=== PATIENT | female | born 1935 | race Caucasian/White ===

== ENCOUNTER → 2019-04-27 07:49 | Outpatient (BNVA) | payer OTHER, SELFPAY | PROVIDERS: PCP Nurse Practitioner Family; Visit Provider Nurse Practitioner Family | DX: Z00.00 Encounter for general adult medical examination without abnormal findings (principal); D64.9 Anemia, unspecified; E78.2 Mixed hyperlipidemia; M81.0 Age-related osteoporosis without current pathological fracture | CPT/HCPCS: 80053; 80061; 85025 ==

== ENCOUNTER → 2019-12-24 08:53 | Outpatient (BNVA) | payer MEDICARE, SELFPAY | PROVIDERS: PCP Nurse Practitioner Family; Visit Provider Nurse Practitioner Family | DX: E11.9 Type 2 diabetes mellitus without complications (principal); E78.2 Mixed hyperlipidemia | CPT/HCPCS: 80053; 80061; 83036; 85025 ==

== ENCOUNTER → 2020-06-24 08:14 | Outpatient (BNVA) | payer MEDICARE, SELFPAY | PROVIDERS: PCP Nurse Practitioner Family; Visit Provider Family Medicine | DX: E78.2 Mixed hyperlipidemia (principal); Z00.00 Encounter for general adult medical examination without abnormal findings | CPT/HCPCS: 80053; 80061; 84443; 85025 ==

== ENCOUNTER → 2021-06-02 08:24 | Outpatient (BNVA) | payer MEDICARE, SELFPAY | PROVIDERS: PCP Nurse Practitioner Family; Visit Provider Family Medicine | DX: E78.2 Mixed hyperlipidemia (principal); K21.9 Gastro-esophageal reflux disease without esophagitis; E78.5 Hyperlipidemia, unspecified | CPT/HCPCS: 80053; 80061; 84443; 85025 ==

== ENCOUNTER 2021-08-15 09:38 | Outpatient (CLI) | payer MEDICARE, SELFPAY ==
--- NOTE | 2021-08-15 09:43 | MM_ITS ---
WS: [id number] Bilateral screening 3D tomosynthesis digital mammogram, 08/15/2021 Clinical Data: SCREENING Comparison: 05/06/2014, 07/04/2009, 08/26/2026, 02/25/2006, 02/15/2006. Findings: The breast parenchymal pattern shows hyperglandular tissue No spiculated masses or clustered calcific ations are seen. There are no secondary signs of carcinoma. There are calcifications in the george of small vessels. There are small lymph nodes in both axilla. Impression: 1. Negative bilateral mammogram unchanged. 2. Recommend annual screening mammograms. MM/[place] [address] BIRADS: 1-Negative FOLLOW UP: 1 Year Follow-up The CAD weight yardage checker was used.
== END 2021-08-15 09:39 | disposition home or self-care (01) ==
PROVIDERS: PCP Family Medicine; Visit Provider Family Medicine
DX: Z12.39 Encounter for other screening for malignant neoplasm of breast (principal)
CPT/HCPCS: 77063; 77067

== ENCOUNTER → 2021-08-29 11:41 | Outpatient (BNVA) | payer MEDICARE, SELFPAY | PROVIDERS: PCP Family Medicine; Visit Provider Nurse Practitioner Family | DX: R19.7 Diarrhea, unspecified (principal); R50.9 Fever, unspecified; R19.5 Other fecal abnormalities; R63.4 Abnormal weight loss; R10.9 Unspecified abdominal pain; R63.0 Anorexia | CPT/HCPCS: 80053; 87493; 87506 ==

== ENCOUNTER 2022-06-18 13:19 | Outpatient (CLI) | payer MEDICARE, SELFPAY ==
--- NOTE | 2022-06-18 13:30 | XR_ITS ---
WS: [id number] DEXA (DUAL ENERGY X-RAY ABSORPTIOMETRY) Bone mineral density was performed using a Dexrex Gear machine. 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 COMPARISON: None available. Lumbar spine BMD (L1-L4): 1.570 g/cm2 T score: 3.2 Z score: 4.9 Total hip BMD: Left: 1.088 g/cm2. T score: 0.6 Z score: 2.8 Right: 1.099 g/cm2. T score: 0.7 Z score: 2.9 10 year probability of a major osteoporotic fracture is 14.2%. XR/XR DEXA axial skeleton* 48400 IMPRESSION: NORMAL BONE MINERAL DENSITY based upon the WHO classification for females.
== END 2022-06-18 13:20 | disposition home or self-care (01) ==
LOC: RAD 13:21
PROVIDERS: PCP Family Medicine; Visit Provider Family Medicine
DX: Z00.00 Encounter for general adult medical examination without abnormal findings (principal); M81.0 Age-related osteoporosis without current pathological fracture; E78.2 Mixed hyperlipidemia
CPT/HCPCS: 77080; 80053; 80061; 82306; 84443; 85025

== ENCOUNTER → 2022-06-27 10:29 | Outpatient (BNVA) | payer MEDICARE, SELFPAY | PROVIDERS: PCP Family Medicine; Visit Provider Family Medicine | DX: E78.5 Hyperlipidemia, unspecified (principal); R73.9 Hyperglycemia, unspecified | CPT/HCPCS: 83036; 84439; 84443; 84481 ==

== ENCOUNTER → 2022-09-24 11:10 | Outpatient (BNVA) | payer MEDICARE, SELFPAY | PROVIDERS: PCP Family Medicine; Visit Provider Internal Medicine Cardiovascular Disease | DX: R01.1 Cardiac murmur, unspecified (principal); I35.1 Nonrheumatic aortic (valve) insufficiency; E78.5 Hyperlipidemia, unspecified; K21.9 Gastro-esophageal reflux disease without esophagitis; N18.30 Chronic kidney disease, stage 3 unspecified | CPT/HCPCS: 93005; 99203 ==

== ENCOUNTER → 2022-09-24 11:11 | Outpatient (BNVA) | payer MEDICARE, SELFPAY | PROVIDERS: PCP Family Medicine; Visit Provider Internal Medicine Cardiovascular Disease | DX: R01.1 Cardiac murmur, unspecified (principal); K21.9 Gastro-esophageal reflux disease without esophagitis; E78.5 Hyperlipidemia, unspecified; N18.30 Chronic kidney disease, stage 3 unspecified; R94.31 Abnormal electrocardiogram [ECG] [EKG] | CPT/HCPCS: 93005; 99204 ==

== ENCOUNTER 2022-10-09 07:36 | Outpatient (CLI) | payer MEDICARE, SELFPAY ==
--- NOTE | 2022-10-09 08:00 | USCV_ITS ---
Keerthi Wiseman Age: 87 Gender: F : 1935 Exam Date: 10/09/2022 07:55 Ordering Phys: Glory Rendon MD ([email or web address]) Technologist: Juan Vidal Exam Location: [facility] [place] Indication: Shortness of breath BP: 200 / 100 HR: 65 Rhythm: Sinus Technical Quality: Adequate MEASUREMENTS (Male / Female) Normal Values 2D ECHO LVOT Diameter 2.0 cm LV Ejection Fraction MOD 2C 72.2 % LV Ejection Fraction 2C AL 72.5 % LA Diameter 3.4 cm LA Width 3.4 cm LA Height 4.7 cm RA Width 3.0 cm RA Height 4.3 cm Aorta at Sinotubular Diameter 2.3 cm IVC Diameter 1.6 cm M-MODE Aortic Annulus Diameter 1.9 cm LA Ao Ratio MM 1.8 MV E Point Septal Separation 0.2 cm DOPPLER AV Peak Velocity 335.3 cm/s LVOT Peak Velocity 96.0 cm/s AV Area Cont Eq vti 0.9 cm squared AV Area Cont Eq pk 0.9 cm squared MV Peak Velocity 141.0 cm/s MV Area PHT 3.2 cm squared Mitral E to A Ratio 0.7 MV E' Velocity 48.0 cm/s Mitral E to MV E' Ratio 13.3 Mitral E to LV E' Lateral Ratio 13.3 Mitral E to LV E' Septal Ratio 13.5 TR Peak Velocity 290.6 cm/s TR Peak Gradient 33.8 mmHg TR Mean Velocity 228.2 cm/s TR Mean Gradient 22.5 mmHg TR Velocity Time Integral 85.7 cm Right Atrial Pressure 3.0 mmHg Pulmonary Artery Systolic Pressu 36.8 mmHg PV Peak Velocity 83.3 cm/s RV Acceleration Time 0.1 s RV Ejection Time 0.3 s RV AcT/ET 0.2 FINDINGS Left Ventricle Normal left ventricular size, systolic function and severely increased wall thickness, with no regional wall motion abnormalities. Left ventricular ejection fraction is estimated at 65 %. Grade I diastolic dysfunction (abnormal relaxation filling pattern), normal to mildly elevated filling pressures. Right Ventricle Normal right ventricular size and systolic function. Right ventricular systolic pressure 22 mmHg. Right Atrium Normal right atrial size. Left Atrium Mildly increased left atrial size. Mitral Valve Moderate mitral annular calcification. No mitral valve stenosis. Mild mitral valve regurgitation. Aortic Valve Markedly thickened and calcified trileaflet aortic valve. Severe aortic valve stenosis, peak velocity 3.2 m/s, peak gradient 40 mmHg, mean gradient 21 mmHg, AKIL 0.9 cm squared. No aortic valve regurgitation. Tricuspid Valve Structurally normal tricuspid valve. No tricuspid valve stenosis. Pulmonic Valve Pulmonic valve not well visualized. No pulmonary valve stenosis. Mild pulmonary valve regurgitation. Pericardium No pericardial effusion. Aorta Normal size aortic root and proximal ascending aorta. IVC Normal IVC dimension with >50% respiratory change of the inferior vena cava. CONCLUSIONS 1. Normal left ventricular size, systolic function and severely increased wall thickness, with no regional wall motion abnormalities. Left ventricular ejection fraction is estimated at 65 %. Grade I diastolic dysfunction (abnormal relaxation filling pattern), normal to mildly elevated filling pressures. 2. Normal right ventricular size and systolic function. 3. Severe aortic valve stenosis, peak velocity 3.2 m/s, peak gradient 40 mmHg, mean gradient 21 mmHg, AKIL 0.9 cm squared. 4. No prior similar studies to compare. Glory Rendon MD (Electronically Signed) Final Date: 15 October 2022 16:56 S
== END 2022-10-09 07:37 | disposition home or self-care (01) ==
PROVIDERS: PCP Family Medicine; Visit Provider Internal Medicine Cardiovascular Disease
DX: I35.2 Nonrheumatic aortic (valve) stenosis with insufficiency (principal); R06.02 Shortness of breath
CPT/HCPCS: 93306; 99204

== ENCOUNTER → 2022-10-22 09:50 | Outpatient (BNVA) | payer MEDICARE, SELFPAY | PROVIDERS: PCP Family Medicine; Visit Provider Family Medicine | DX: E78.5 Hyperlipidemia, unspecified (principal); N18.30 Chronic kidney disease, stage 3 unspecified | CPT/HCPCS: 80053; 80061; 84443; 85025 ==

== ENCOUNTER 2022-12-21 06:00 | Outpatient (RCR) | payer MEDICARE, SELFPAY | END 2023-01-19 23:59 | disposition home or self-care (01) | LOC: TPT 06:00 | PROVIDERS: Visit Provider Family Medicine | DX: M25.512 Pain in left shoulder (principal) | CPT/HCPCS: 97110; 97162 ==

== ENCOUNTER 2023-01-20 06:00 | Outpatient (RCR) | payer MEDICARE, SELFPAY | END 2023-02-13 23:59 | disposition home or self-care (01) | LOC: TPT 06:00 | PROVIDERS: Visit Provider Family Medicine | DX: M25.511 Pain in right shoulder (principal) | CPT/HCPCS: 97110 ==

== ENCOUNTER → 2023-03-25 10:36 | Outpatient (BNVA) | payer MEDICARE, SELFPAY | PROVIDERS: Visit Provider Internal Medicine Cardiovascular Disease | DX: I35.0 Nonrheumatic aortic (valve) stenosis (principal); R01.1 Cardiac murmur, unspecified | CPT/HCPCS: 99214 ==

== ENCOUNTER 2023-04-08 08:12 | Outpatient (CLI) | payer MEDICARE, SELFPAY ==
--- NOTE | 2023-04-08 08:45 | USCV_ITS ---
Ivone Keerthi Age: 87 Gender: F : 1935 Exam Date: 04/08/2023 08:58 Ordering Phys: Glory Rendon MD ([email or web address]) Technologist: Jodi Galeana [place] [facility] [place]: aortic stenosis, cardiac murmur BP: 128 / 88 HR: 51 Rhythm: Sinus Technical Quality: Good MEASUREMENTS (Male / Female) Normal Values 2D ECHO LV Diastolic Diameter PLAX 3.9 cm 4.2 - 5.9 / 3.9 - 5.3 cm LV Systolic Diameter PLAX 2.0 cm IVS Diastolic Thickness 1.2 cm 0.6 - 1.0 / 0.6 - 0.9 cm IVS Systolic Thickness 1.4 cm LVPW Diastolic Thickness 1.1 cm 0.6 - 1.0 / 0.6 - 0.9 cm LVPW Systolic Thickness 1.7 cm LVOT Diameter 2.0 cm LV Ejection Fraction 2D Teich 80.1 % LV Ejection Fraction MOD 2C 55.7 % LV Ejection Fraction 2C AL 56.5 % LA Diameter 2.9 cm LA Width 3.5 cm LA Height 4.0 cm RA Width 2.6 cm RA Height 4.5 cm Aorta at Sinotubular Diameter 3.0 cm IVC Diameter 0.9 cm M-MODE Aortic Annulus Diameter 2.9 cm LA Ao Ratio MM 0.9 MV E Point Septal Separation 0.3 cm DOPPLER AV Peak Velocity 312.4 cm/s LVOT Peak Velocity 92.0 cm/s AV Area Cont Eq vti 0.9 cm squared AV Area Cont Eq pk 1.0 cm squared MV Peak Velocity 130.0 cm/s MV Area PHT 3.9 cm squared Mitral E to A Ratio 0.8 MV E' Velocity 58.5 cm/s Mitral E to MV E' Ratio 17.1 Mitral E to LV E' Lateral Ratio 17.7 Mitral E to LV E' Septal Ratio 16.9 TR Peak Velocity 180.0 cm/s TR Peak Gradient 13.0 mmHg Right Atrial Pressure 5.0 mmHg Pulmonary Artery Systolic Pressu 18.0 mmHg RV Acceleration Time 0.2 s RV Ejection Time 0.4 s RV AcT/ET 0.5 FINDINGS Left Ventricle Left ventricle is normal in size. LV systolic function is normal with EF of 60 to 65%. No regional wall motion abnormalities are seen. Left ventricular hypertrophy seen. Grade 1 diastolic dysfunction. Right Ventricle Normal in size and function. Right Atrium Normal in size Left Atrium Mildly dilated left atrium. Mitral Valve Mitral valve is thickened. Mild mitral regurgitation. Aortic Valve Aortic valve is thickened and calcified. Severe aortic stenosis with aortic valve area of 0.8 cm squared and mean gradient of 29 mmHg. Tricuspid Valve Trace tricuspid regurgitation. Pulmonic artery systolic pressure is normal. Pulmonic Valve Not well visualized Pericardium Normal Aorta Normal in size. IVC Appears to be normal. CONCLUSIONS LV systolic function is normal with EF of 60 to 65%. Grade 1 diastolic dysfunction. Mildly dilated left atrium Mild mitral regurgitation Aortic valve is thickened and calcified. Severe aortic stenosis with aortic valve area of 0.8 cm squared and mean gradient of 29 mmHg. Trace tricuspid regurgitation Compared to prior echocardiogram from 09/2022, aortic stenosis has progressed and is severe now. Ezra Francis MD (Electronically Signed) Final Date: 12 April 2023 13:41 S
== END 2023-04-08 08:13 | disposition home or self-care (01) ==
LOC: RAD 08:13
PROVIDERS: PCP Family Medicine; Visit Provider Internal Medicine Cardiovascular Disease
DX: R01.1 Cardiac murmur, unspecified (principal); I08.3 Combined rheumatic disorders of mitral, aortic and tricuspid valves
CPT/HCPCS: 93306

== ENCOUNTER 2023-04-09 05:41 | Outpatient (CLI) | payer MEDICARE, SELFPAY ==
[2023-04-08 12:44] VITALS: BMI 28.7
[2023-04-09] VITALS (39 sets, daily range): BP systolic 139–198; BP diastolic 50–84; PULSE 62–86; RESP 14–28; TEMP 36.3–36.6; O2SAT 96–100
--- NOTE | 2023-04-09 06:00 | XACV_ITS ---
Exam Room: 2 Ht: 157 cm Wt: 71 kg BSA: 1.79 m2 Gender: Female : 1935 Any Known Allergies: Sulfa Exam Priority: Routine Procedure(s): Procedure Description: Diagnostic procedure Procedure Description: PCI procedure Procedure Description: Left Heart Catheterization Procedure Description: Right Heart Catheterization Procedure Description: O2 saturation Procedure Description: Drug Eluting Coronary Stent Procedure Description: PTCA Procedure Description: Miscellaneous Procedure Description: ACT Procedure Description: Coronary Angiography Diagnostic Cath Status: Elective Diagnostic Findings * INDICATION: Severe aortic stenosis/ Dyspnea on exertion. * Aortic valve study: * Cardiac output by Meena: 3.25 L/min Peak to peak gradient across aortic valve: 62 mmHg Mean gradient across aortic valve: 51 mmHg Aortic valve area: 0.6 cm2. * Separate ostia of LAD and left circumflex artery. * . * Mid Left Anterior Descending to Distal Left Anterior Descending: moderate 50% stenosis, SHAMEKA: 3 flow. * Mid Right Coronary Artery to Distal Right Coronary Artery: severe 90% stenosis, SHAMEKA: 3 flow. * Proximal Circumflex: minimal 30% stenosis, SHAMEKA: 3 flow. * Coronary angiography shows right dominance. PCI Status: Elective PCI Indication: Other Interventional Findings * Procedure detail: * After diagnostic procedure, we decided to proceed with PCI of mid RCA. We engaged RCA with JR4 guide catheter. IV heparin was administered to maintain anticoagulation. 0.014 run-through guidewire was used to cross the stenosis and was put in distal vessel. We predilated the stenosis with 2.75 x 20 mm semicompliant balloon. This was followed by placement of a 3.0 x 30 mm resolute Charla drug-eluting stent. We postdilated the stent with 3.5 x 8 mm NC balloon at high pressure. At this time final angiogram was performed that showed excellent stent expansion, no residual stenosis and SHAMEKA-3 flow. Guidewire and guide catheter were removed. Patient left the Seismographer in a stable condition. * . * Mid Right Coronary Artery to Distal Right Coronary Artery: 90% stenosis treated with a AB TREK 2.75X20 RX BALLOON, TYRONE R CHARLA 3.0X30 AMI, and TYRONE BAKER EUPHORA RX 3.34S27OH BALLOON. 0% residual stenosis, SHAMEKA: 3 flow. Conclusions 1. Severe mid RCA stenosis. S/p successful revascularization with 1 stent.. 2. Severe aortic stenosis with aortic valve area of 0.6 cm2, mean gradient across aortic valve is 51 mmHg and peak to peak gradient is 62 mmHg. 3. Mid Right Coronary Artery to Distal Right Coronary Artery was treated with a Balloon, Drug Eluting Stent, and Balloon. Recommendations * Dual antiplatelet therapy with aspirin and plavix for at least 1 year. * High intensity statin therapy. * We will refer patient for TAVR evaluation. * Outpatient cardiology follow up in 4 weeks. Interventional RX Recommendation: PCI w/o planned CABG Diagnostic RX Recommendation: PCI w/o planned CABG Anticoagulation: Heparin Pressures Phase:Rest AO : 90 / 52 ( 71 ) @ 8:52:00 AM 107 / 43 ( 66 ) @ 8:56:00 AM 144 / 63 ( 97 ) @ 9:08:00 AM 146 / 65 ( 99 ) @ 9:08:00 AM 139 / 62 ( 94 ) @ 9:09:00 AM 144 / 66 ( 99 ) @ 9:10:00 AM LV : 206 / -2 / 17 @ 9:08:00 AM 207 / -2 / 17 @ 9:08:00 AM 202 / -1 / 17 @ 9:09:00 AM 205 / -1 / 18 @ 9:10:00 AM RV : 38 / -2 / 7 @ 8:44:00 AM PA : 39 / 8 ( 19 ) @ 8:43:00 AM RA : a wave = 9 v wave = 7 mean = 5 @ 8:44:00 AM PCW : a wave = 10 v wave = 11 mean = 9 @ 8:43:00 AM O2 Content Phase:Rest PA : O2 Content O2: 70.0 @ 8:52:00 AM Saturations Phase:Rest AO : 97 @ 8:56:00 AM PA : 70 @ 8:52:00 AM Cardiac Output Phase:Rest Meena : 3 @ 9:44:39 AM Meena Cardiac Index: 2 @ 9:44:39 AM Flow Phase:Rest Qp : 3 @ 9:44:39 AM Qs : 3 @ 9:44:39 AM Valves Phase:DefaultPhase AV : 62.0 @ 9:44:39 AM 62.0 @ 9:44:39 AM AV Mean Gradient: 51.0 @ 9:44:39 AM 51.0 @ 9:44:39 AM AV Flow: 175 @ 9:44:39 AM AV Area: 0.6 @ 9:44:39 AM AV Area Index: 0.32 @ 9:44:39 AM Clinical Evaluation EBL: 5mL-10mL Procedural Details Pre-Procedure Time Out. Identified patient by full name and date of as verbalized by the patient/guarantor. Does the consent match the physician's order: Yes. Accurate & Complete Informed Consent: Yes. Inpatient/Outpatient History & Physical on Chart: Yes. If H&P is completed, is and addenduem needed: No; If yes, is the addendum complete: N/A. Visualize and Verify Site with Patient/Guarantor: N/A. Relevant Radiology Images available: Yes. The risks, benefits, and alternatives of sedation and/or procedure were discussed by physician. The patient agrees to continue. Procedure started. [facility] Clinical Fraility Score: 3: Managing Well. Seismographer Indications: Other. Chest Pain Symptom Assessment: Non-anginal Chest Pain. Correct patient, site and procedure confirmed by cath team. PERRLA. Strong, equal hand tool and die repair bilaterally. Lungs clear x 5 lobes. IV Site on Arrival: 20 gauge in the right anticubital. IV Site on Arrival: 20 gauge in the left anticubital. IV Fluids: 0.9% NaCl at KVO. 0 mL infused prior to laborer. Pre Procedural Pulses: bilateral dorsalis pedis was 1+. Pre Procedural Pulses: bilateral posterior tibial was Doppled. Pre Procedural Pulses: bilateral radial was 2+. right groin was prepped with chloroprep then draped in the usual sterile fashion. right radial was prepped with chloroprep then draped in the usual sterile fashion. right brachial was prepped with chloroprep then draped in the usual sterile fashion. Baseline sample Acquired. HR: 64 BPM. Physician arrived. Procedure Consent Obtained. Physician scrubbed in. Immediate Pre-Procedure Time Out. Correct Patient: Yes; Correct Procedure: Yes; Correct Site: Yes; Correct Patient Position: Yes; Correct Supplies: Yes; Dried Flammable Prep: Yes; Blood Products Available: N/A;. Lidocaine 1% infiltrated to the right brachial. Sheath wire inserted through the right brachial IV site. IV catheter out OTW. Stay[place]-Stephanie MON catheter inserted. Oximetry samples were obtained. Normal venous range: 60-85%. Normal arterial range: 95-100%. Pressure measurements obtained. Stay[place]-Stephanie out. Lidocaine 1% infiltrated to the right radial. Arterial access obtained. Oxygen started at 2liters/min via nasal canula. A 5 bots[place]an TIG catheter in over wire. Multiple views taken of right coronary artery. Catheter removed over the exchange wire. A 5 [place]an JL3.5 catheter in over wire. Multiple views taken of left coronary artery. Catheter removed over the exchange wire. A 5 b[place]an AL1 catheter in over wire. Catheter removed over the exchange wire. A 6 [place]an Buhl Pig catheter in over wire. Gradient taken: LV 206/-3,17; AO 144/63(97); Mean: 51mmHg, Peak to Peak: 62mmHg, SEP: 19sec/min; HR: 76 BPM; SpO2: 98%. Catheter removed over the exchange wire. 6 bots[place]an JR 4 guide catheter was inserted over the wire. Runthrough guidewire was advanced through the guide catheter to lesion in the mid RCA. Inflation number : 1 A AB TREK 2.75X20 RX BALLOON was prepped and advanced across the Mid RCA , then inflated to 10 MOO for 0:26 seconds. Balloon out. Inflation Number : 2 A MDT R CHARLA 3.0X30 AMI -Lot Number# _[id number] EXP: 06/30/2024 was prepped and advanced across the Mid RCA. The stent was deployed at 12 MOO for 0:21 seconds. Stent balloon out over wire. Results checked. NC Euphora 3.5x15 Balloon inserted to lesion in the mid RCA. Balloon out. Inflation number : 3 A MDT NC EUPHORA RX 3.92Y06YS BALLOON was prepped and advanced across the Mid RCA , then inflated to 12 MOO for 0:13 seconds. Inflation number: 4 The MDT NC EUPHORA RX [id number] BALLOON was reinflated across the Mid RCA, to 16 MOO for 0:16 seconds. Inflation number: 5 The MDT NC EUPHORA RX 3.36Y46IX BALLOON was reinflated across the Mid RCA, to 16 MOO for 0:12 seconds. Balloon out. ACT drawn. Results 329 seconds. Therapeutic limits - pre-heparin administration 90-150 seconds and monitoring heparin during a vascular procedure >250 seconds. Results checked. Wire out. Results checked. Guide catheter out. A TR Band was unsuccessful obtaining hemostatsis at the Right Radial artery insertion site. A Manual Compression was successful obtaining hemostatsis at the Right Brachial Vein insertion site. Post Procedure: Pulses reassessed and unchanged. PERRLA. Strong, equal hand tool and die repair bilaterally. No VTE prophylaxis required. Medication's Wasted: Heparin = 2000 units. Medication's Wasted: Other = Fentanyl 50mcg. Medication's Wasted: Other = Hydralazine 10 mg. Medication's Wasted: Nitro = 49.6 mcg. Total IV fluids: 90 mL. Complications: None. Estimated blood loss: 5mL-10mL. Responsiveness - Normal response to verbal stimuli; alert and oriented, PERRLA. Airway - Unaffected, no intervention required; spontaneous ventilation. Circulation: W/N/L, pulses unchanged. Nausea/Vomiting: No. Procedure completed. Vital chart was stopped. Patient transferred by wheelchair to CPRU. Access Site Site: Right Brachial Vein Sheath Size: 6 Fr Hemostasis Method: Manual Compression Hemostasis Success: Successful Site: Right Radial artery Sheath Size: 6 Fr Hemostasis Method: TR Band Hemostasis Success: Unsuccessful Procedure Medications Start: 8:29 AM Stop: 8:29 AM Medication: Fentanyl Amount: 25 mcg Route: I.V. Start: 8:36 AM Stop: 8:36 AM Medication: Hydralazine Amount: 10 mg Route: I.V. Start: 8:40 AM Stop: 8:40 AM Medication: Versed Amount: 1 mg Route: I.V. Start: 8:50 AM Stop: 8:50 AM Medication: Nitrogylcerin Amount: 200 mcg Route: I.A. Start: 8:50 AM Stop: 8:50 AM Medication: Fentanyl Amount: 25 mcg Route: I.V. Start: 8:52 AM Stop: 8:52 AM Medication: Heparin Amount: 5000 units Route: I.V. Start: 9:10 AM Stop: 9:10 AM Medication: Heparin Amount: 1000 units Route: I.V. Start: 9:13 AM Stop: 9:13 AM Medication: Nitrogylcerin Amount: 200 mcg Route: I.A. Start: 9:14 AM Stop: 9:14 AM Medication: Versed Amount: 1 mg Route: I.V. Start: 9:16 AM Stop: 9:16 AM Medication: Heparin Amount: 1000 units Route: I.V. Start: 9:26 AM Stop: 9:26 AM Medication: Plavix Amount: 600 mg Route: P.O. Start: 9:33 AM Stop: 9:33 AM Medication: 0.9% Saline Amount: ml/hr Route: I.VParrish hagen I, the attending physician, have reviewed and verified all procedure medications. Yes, all medications given per verbal order History/Risk Factors Hypertension: No Dyslipidemia: Yes Peripheral Arterial Disease (PAD): No Myocardial Infarction (IA): No Obesity: No Renal Disease: No Tobacco Use: Never Prior Interventions PCI: No CABG: No Valve Surgery: No Report Signatures Finalized by Ezra Francis MD on 04/11/2023 11:27 AM
[2023-04-09] MEDS: aspirin 325 mg Tablet PO (06:20)
[2023-04-09] MEDS: diphenhydrAMINE 50 mg Capsule PO (06:20)
[2023-04-09 06:21] LABS: Basophils # 0.1 10^3/uL (0.0-0.1); Basophils % 0.7 %; Eosinophils # 0.1 10^3/uL (0.0-0.8); Eosinophils % 1.6 %; Hematocrit 39.7 % (36-47); Lymphocytes % 28.4 %; Mean Corpuscular HGB Conc 31.7 g/dL (30-55); Mean Corpuscular Hemoglobin 26.9 pg (27-33); Mean Corpuscular Volume 84.8 fl (85-98); Mean Platelet Volume 9.8 fL (7.4-10.4); Monocytes # 0.5 10^3/uL (0.2-0.9); Monocytes % 7.1 %; Neutrophils # 4.34 10^3/uL (1.8-7.7); Neutrophils % 61.9 %; Nucleated Red Blood Cells % 0 %; Platelet Count 325 10^3/cmm (157-399); Red Blood Count 4.68 10^6/uL (3.85-5.65); Red Cell Distribution Width 15.4 % (12.1-15.1); White Blood Count 7.01 10^3/uL (3.29-11.43)
[2023-04-09 06:38] LABS: Blood Urea Nitrogen 15 mg/dL (8-23); Calcium 9.3 mg/dL (8.5-10.5); Carbon Dioxide 28 mmol/L (22-29); Chloride 103 mmol/L (98-107); Glucose 118 mg/dL (65-115); Osmolality Calculated 292 mOsm/kg (285-295); Sodium 140 mmol/L (136-145)
--- NOTE | 2023-04-09 08:16 | W.PM.OPSUD ---
Surgery/Procedure H&P Update DATE OF PROCEDURE: April 09, 2023 DATE H&P PERFORMED: 03/25/23 H&P UPDATE INFORMATION: I have reviewed H&P completed within last 30 days, I have examined patient prior to procedure and No changes to prior documentation PREOP DIAGNOSIS: Severe aortic stenosis PRIMARY INDICATION FOR PROCEDURE: Severe aortic stenosis PLANNED PROCEDURE: Operation Date: 04/09/23 07:00 Proposed Procedures p right heart cath+ [facility] [place] [address] R01.01(Not Applicable) - Ezra Francis M.D Possible percutaneous coronary intervention PHYSICAL EXAM: alert, oriented x 3, clear to auscultation bilaterally and regular rate & rhythm AIRWAY EVAL/ANESTHESIA PLAN: normal airway, ASA III, Local Anesthesia, Risks, benefits & alternatives of sedation and/or procedure discussed and Patient agrees to continue as planned ADDITIONAL INFORMATION: Moderate sedation
[2023-04-09 09:01] LABS: Arterial Blood Gas Hematocrit 30.3 % (37-47); Blood Gas Sample Type Not specified; Carboxyhemoglobin 1.4 %THgb (0.4-20.1); HGB O2 Sat 68.8 % (95-100); Methemoglobin 0.9 % (0.4-1.5); Total Hemoglobin 9.9 g/dL (12-16)
[2023-04-09 09:06] LABS: Arterial Blood Gas Hematocrit 33.9 % (37-47); Blood Gas Sample Type Not specified; Carboxyhemoglobin 1.3 %THgb (0.4-20.1); HGB O2 Sat 94.7 % (95-100); Methemoglobin 0.7 % (0.4-1.5); Total Hemoglobin 11.1 g/dL (12-16)
[2023-04-09 10:50] LABS: Blood Gas Sample Site Not specified; Oxygen Device ROOM AIR
[2023-04-09 10:50] LABS: Blood Gas Sample Site Not specified; Oxygen Device ROOM AIR
--- NOTE | 2023-04-09 11:07 | PC.NURSE ---
Patient arrived on floor at 1020 with a TR band with 13mls inside. Right wrist looks normal, no hematoma noted. Patient vitals WNL. Patient resting comfrotably in bed.
[2023-04-09] MEDS: aspirin 81 mg EC Tablet PO (13:06)
[2023-04-09] MEDS: sodium chloride 0.9% 1,000 ML 50 ML IV (13:28)
[2023-04-10] VITALS (81 sets, daily range): BP systolic 139–218; BP diastolic 61–100; PULSE 58–97; RESP 11–30; TEMP 36.5–36.7; O2SAT 96–100
[2023-04-10 05:13] LABS: Basophils % 0.4 %; Eosinophils # 0.1 10^3/uL (0.0-0.8); Eosinophils % 1.2 %; Hematocrit 37.4 % (36-47); Lymphocytes # 1.7 10^3/uL (0.8-4.8); Lymphocytes % 22.6 %; Mean Corpuscular HGB Conc 31.3 g/dL (30-55); Mean Corpuscular Hemoglobin 26.5 pg (27-33); Mean Corpuscular Volume 84.6 fl (85-98); Mean Platelet Volume 9.9 fL (7.4-10.4); Monocytes # 0.5 10^3/uL (0.2-0.9); Monocytes % 6.7 %; Neutrophils # 5.13 10^3/uL (1.8-7.7); Nucleated Red Blood Cells % 0 %; Platelet Count 281 10^3/cmm (157-399); Red Blood Count 4.42 10^6/uL (3.85-5.65); Red Cell Distribution Width 15.3 % (12.1-15.1); White Blood Count 7.44 10^3/uL (3.29-11.43)
[2023-04-10 05:31] LABS: Anion Gap 12.9 (5-19); Blood Urea Nitrogen 13 mg/dL (8-23); Calcium 8.9 mg/dL (8.5-10.5); Carbon Dioxide 24 mmol/L (22-29); Chloride 104 mmol/L (98-107); Creatinine Clr Calc Pharmacy 45.7896; Glucose 108 mg/dL (65-115); Osmolality Calculated 285 mOsm/kg (285-295); Potassium 3.9 mmol/L (3.5-5.1); Sodium 137 mmol/L (136-145)
[2023-04-10] MEDS: clopidogrel 75 mg Tablet PO (08:14)
[2023-04-10] MEDS: aspirin 81 mg EC Tablet PO (08:14)
[2023-04-10] MEDS: loratadine 10 mg Tablet PO (08:14)
[2023-04-10] MEDS: atorvastatin 40 mg Tablet 80 MG PO (08:15)
--- NOTE | 2023-04-10 08:34 | P.DS_ITS ---
Discharge Providers Date of Admission: 04/09/2023 Date of Discharge: April 10, 2023 Attending Provider at Admission: Ezra Francis MD Attending Provider at Discharge: Ezra Francis M.D Primary Care Provider: Cary Petty MD Reason for Visit Reason for Visit: R01.01. Brief History: 87-year-old woman with past medical hist ory of hypertension who is having progressive shortness of breath. She is found to have severe aortic stenosis. Here for right and left heart cath and valve study. Hospital Course Hospital Course Coronary angiogram demonstrated severe mid RCA stenosis underwent successful revascularization with 1 stent. She was also found to have severe aortic stenosis. She was observed overnight and was discharged home in a stable condition. She will be referred for TAVR procedure. Physical Exam Narrative: GENERAL: Patient is alert, awake and oriented x3. [] NECK: No jugular vein distension. [] HEENT: No cyanosis. No icterus. No pallor. [] HEART: Regular S1 and S2. Grade 4/6 systolic murmur LUNGS: Clear to auscultate bilaterally. [] CENTRAL NERVOUS SYSTEM: Grossly nonfocal. [] EXTREMITIES: Lower extremities with 1+ edema bilaterally. 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 request for service Routine Exams 04/09/23 06:00 Taken Laboratory Results WBC 7.44 10^3/uL (3.29-11.43) 04/10/23 04:55 RBC 4.42 10^6/uL (3.85-5.65) 04/10/23 04:55 Hgb 11.70 g/dL (11.27-16.99) 04/10/23 04:55 Hct 37.4 % (36-47) 04/10/23 04:55 MCV 84.6 fl (85-98) L 04/10/23 04:55 MCH 26.5 pg (27-33) L 04/10/23 04:55 MCHC 31.3 g/dL (30-55) 04/10/23 04:55 RDW 15.3 % (12.1-15.1) H 04/10/23 04:55 Plt Count 281 10^3/cmm (157-399) 04/10/23 04:55 MPV 9.9 fL (7.4-10.4) 04/10/23 04:55 Neut % (Auto) 69.0 % 04/10/23 04:55 Lymph % (Auto) 22.6 % 04/10/23 04:55 [place] % (Auto) 6.7 % 04/10/23 04:55 Eos % (Auto) 1.2 % 04/10/23 04:55 Baso % (Auto) 0.4 % 04/10/23 04:55 Neut # (Auto) 5.13 10^3/uL (1.8-7.7) 04/10/23 04:55 Lymph # (Auto) 1.7 10^3/uL (0.8-4.8) 04/10/23 04:55 [place] # (Auto) 0.5 10^3/uL (0.2-0.9) 04/10/23 04:55 Eos # (Auto) 0.1 10^3/uL (0.0-0.8) 04/10/23 04:55 Baso # (Auto) 0.0 10^3/uL (0.0-0.1) 04/10/23 04:55 Nucleated RBC % (auto) 0 % 04/10/23 04:55 Nucleated RBCs # 0.0 /100WBC 04/10/23 04:55 Specimen Type Not specified 04/09/23 08:52 Sample Site Not specified 04/09/23 08:52 Nathaniel Test N/a 04/09/23 08:52 A-a O2 Gradient Not Reportable 04/09/23 08:52 Hematocrit 33.9 % (37-47) L 04/09/23 08:52 Hgb O2 Saturation 94.7 % (95-100) L 04/09/23 08:52 Carboxyhemoglobin 1.3 %THgb (0.4-20.1) 04/09/23 08:52 Methemoglobin 0.7 % (0.4-1.5) 04/09/23 08:52 Total Hemoglobin 11.1 g/dL (12-16) L 04/09/23 08:52 O2 Delivery Device Room air 04/09/23 08:52 FiO2 21.0 % 04/09/23 08:52 Fund Controller ID Francois 04/09/23 08:52 Sodium 137 mmol/L (136-145) 04/10/23 04:55 Potassium 3.9 mmol/L (3.5-5.1) 04/10/23 04:55 Chloride 104 mmol/L (98-107) 04/10/23 04:55 Carbon Dioxide 24 mmol/L (22-29) 04/10/23 04:55 Anion Gap 12.9 (5-19) 04/10/23 04:55 BUN 13 mg/dL (8-23) 04/10/23 04:55 Creatinine 0.8 mg/dL (0.5-0.9) 04/10/23 04:55 GFR Calculation Not Reportable 04/10/23 04:55 Glucose 108 mg/dL (65-115) 04/10/23 04:55 Calculated Osmolality 285 mOsm/kg (285-295) 04/10/23 04:55 Calcium 8.9 mg/dL (8.5-10.5) 04/10/23 04:55 Vitals Last Vital Signs Temp 97.7 F 04/10/23 07:40 Pulse 73 04/10/23 08:05 Resp 20 H 04/10/23 08:05 BP 207/83 04/10/23 08:05 Pulse Ox 100 04/10/23 08:05 O2 Del Method Room Air 04/10/23 04:02 Discharge Plan Discharge Patient Disposition: Home Prescriptions: New clopidogrel 75 mg Tablet 75 mg PO DAILY Qty: 90 3RF amlodipine 10 mg Tablet 10 mg PO DAILY Qty: 90 3RF metoprolol succinate 25 mg tablet extended release 24 hr 25 mg PO DAILY Qty: 90 2RF Continued coenzyme Q10 1 cap PO DAILY vitamin B complex 1 tab PO DAILY aspirin 81 mg tablet,delayed release (DR/EC) 81 mg PO .every other day cholecalciferol (vitamin D3) 25 mcg (1,000 unit) capsule 1,000 unit PO DAILY fluticasone propionate [Flonase Allergy Relief] 50 mcg/actuation spray,suspension 2 spray INTRANASAL DAILY Qty: 16 2RF Rx Instructions: administer into each nostril atorvastatin 80 mg tablet 80 mg PO DAILY Qty: 30 3RF Rx Instructions: Take at bedtime famotidine 40 mg tablet See Rx Instructions .ROUTE .COMPLEX Qty: 30 3RF Dose Instruction: TAKE ONE TABLET BY MOUTH DAILY Rx Instructions: TAKE ONE TABLET BY MOUTH DAILY fexofenadine 60 mg Tablet 60 mg PO BID Discharge Orders: Discharge Order (Routine); Ordered 04/10/23 Ordered By: Ezra Francis Referrals: Ezra Francis M.D [Physician] - 2 months (After your appointment with Sarahi Schumacher, you will scheduled from an follow-up with Dr. Francis. Jasmyn briones. ) Sarahi Schumacher FNP [Nurse Practitioner] - 04/18/23 11:00 am Cary Petty MD [Primary Care Provider] - 04/12/23 10:20 am Diet: Cardiac and Low Salt Activity: Increase activity as tolerated Patient Instructions: Metoprolol (By mouth) (Lopressor, Toprol XL), Amlodipine (By mouth), Clopidogrel (By mouth) (Plavix), Coronary Angioplasty (DC), Aortic Stenosis (DC), Post Angiogram Home Care Instructions Discharge Date/Time: 04/10/23 10:35 Discharge Attestations Time Spent in Discharge Care*: less than 30 min Quality Metrics Clinical Quality Measures [ No reported AMI, CVA or VTE this stay] Coding Level of Care Code Acute Code for Chg Fwame
[2023-04-10] MEDS: hyDRALAzine 20 mg/mL INJ 1 mL 10 MG IVP (09:27)
[2023-04-10] MEDS: amlodipine 10 mg Tablet PO (09:27)
--- NOTE | 2023-04-10 10:56 | PC.NURSE ---
Discharge Note Patient discharged to [home] via [w/c to POV] accompanied by [daughter]. Discharge instructions reviewed with patient and/or outside medical sales representative. Mobile pharmacy medications and/or prescriptions provided. Belongings/home medications returned.
--- NOTE | 2023-04-10 12:35 | PC.SOCIAL ---
Patient had discharged and left prior to being seen by CM .
== END 2023-04-10 10:35 | disposition home or self-care (01) ==
LOC: CCL 08:18 → CSU 10:43
PROVIDERS: Internal Medicine Cardiovascular Disease; PCP Family Medicine; Visit Provider Internal Medicine
DX: I35.0 Nonrheumatic aortic (valve) stenosis (principal); N18.30 Chronic kidney disease, stage 3 unspecified; M81.0 Age-related osteoporosis without current pathological fracture; E78.2 Mixed hyperlipidemia; Z79.82 Long term (current) use of aspirin; K21.9 Gastro-esophageal reflux disease without esophagitis
CPT/HCPCS: 36415; 80048; 82810; 85025; 85347; 93460; 96361; 96365; 96367; 96376; 99152; 99153; C1725; C1751; C1769; C1874; C1887; C1894; C9600; J0360; J1644; J2250; J3010; J3490; J7030; Q0163; Q9967

== ENCOUNTER → 2023-04-18 10:36 | Outpatient (BNVA) | payer MEDICARE, SELFPAY | PROVIDERS: PCP Family Medicine; Visit Provider Nurse Practitioner Family | DX: I35.0 Nonrheumatic aortic (valve) stenosis (principal); Z79.82 Long term (current) use of aspirin | CPT/HCPCS: 36415; 80048; 99214 ==

== ENCOUNTER → 2023-09-10 16:21 | Outpatient (BNVA) | payer MEDICARE, SELFPAY | PROVIDERS: PCP Family Medicine; Visit Provider Internal Medicine | DX: R06.02 Shortness of breath (principal); I10 Essential (primary) hypertension; I35.0 Nonrheumatic aortic (valve) stenosis | CPT/HCPCS: 80048; 83880; 99214 ==

== ENCOUNTER → 2023-11-27 12:43 | Outpatient (BNVA) | payer MEDICARE, SELFPAY | PROVIDERS: PCP Family Medicine; Visit Provider Nurse Practitioner Family | DX: D48.5 Neoplasm of uncertain behavior of skin (principal); L82.0 Inflamed seborrheic keratosis; D22.0 Melanocytic nevi of lip; L81.4 Other melanin hyperpigmentation; L57.8 Other skin changes due to chronic exposure to nonionizing radiation | CPT/HCPCS: 11104; 17110; 99204 ==

== ENCOUNTER → 2023-12-09 08:35 | Outpatient (BNVA) | payer MEDICARE, SELFPAY | PROVIDERS: PCP Family Medicine; Visit Provider Nurse Practitioner Family | DX: L30.8 Other specified dermatitis (principal) | CPT/HCPCS: 99213 ==

== ENCOUNTER → 2024-01-27 07:54 | Outpatient (BNVA) | payer MEDICARE, SELFPAY | PROVIDERS: PCP Family Medicine; Visit Provider Nurse Practitioner Family | DX: L30.8 Other specified dermatitis (principal); L57.0 Actinic keratosis; L82.0 Inflamed seborrheic keratosis; L91.8 Other hypertrophic disorders of the skin | CPT/HCPCS: 17000; 17110; 99213 ==

== ENCOUNTER 2024-02-16 17:47 | Emergency (ER) | payer MEDICARE, SELFPAY ==
[2024-02-16 17:57] VITALS: BP 183/86; PULSE 90; RESP 18; TEMP 36.9; O2SAT 96; BMI 29.2
--- NOTE | 2024-02-16 18:14 | XRR_ITS ---
PROCEDURE INFORMATION: Exam: XR Chest Exam date and time: 02/16/2024 6:46 PM Age: 88 years old Clinical indication: Fever; Prior surgery; Surgery date: 6+ months; Surgery type: Cardiac stent; Avr; Additional info: Posterior chest pain; Fever; SOB TECHNIQUE: Imaging protocol: Radiologic exam of the chest. Views: 2 views. COMPARISON: No relevant prior studies available. FINDINGS: Lungs: Unremarkable. No consolidation. Pleural spaces: Unremarkable. No pleural effusion. No pneumothorax. Heart/Mediastinum: Status post TAVR. Coronary artery stenting. Vasculature: Atherosclerotic aortic calcifications. Bones/joints: Degenerative changes of the thoracic spine. No acute osseous findings. XR/XR chest 2V* [id number] IMPRESSION: No acute cardiopulmonary findings.
[2024-02-16 18:25] VITALS: RESP 18; O2SAT 98
[2024-02-16] MEDS: morphine 4 mg/mL SDV 1 mL 2 MG IVP (18:25)
[2024-02-16] MEDS: ondansetron 2 mg/ML SDV 2 mL 4 MG IVP (18:26)
[2024-02-16 18:38] LABS: Basophils % 0.3 %; Eosinophils % 0.1 %; Hematocrit 35.7 % (36-47); Lymphocytes # 1.2 10^3/uL (0.8-4.8); Lymphocytes % 13.2 %; Mean Corpuscular HGB Conc 32.2 g/dL (30-55); Mean Corpuscular Hemoglobin 25.6 pg (27-33); Mean Corpuscular Volume 79.3 fl (85-98); Mean Platelet Volume 9.6 fL (7.4-10.4); Monocytes % 10.7 %; Neutrophils # 7.01 10^3/uL (1.8-7.7); Neutrophils % 75.5 %; Nucleated Red Blood Cells % 0 %; Platelet Count 263 10^3/cmm (157-399); Red Cell Distribution Width 15.9 % (12.1-15.1); White Blood Count 9.29 10^3/uL (3.29-11.43)
--- NOTE | 2024-02-16 18:43 | ED_ITS ---
HPI - Extremity Problem 2 General: Chief complaint: Extremity Problem,Nontraumatic Stated complaint: both shoulder and neck pain, low fever, headache Time Seen by Provider: 02/16/24 18:01 History of Present Illness: 88-year-old female with a history of fev er up to 102 today. She says she has had frequency of urine, some lower back mild discomfort, generalized bodyaches, and headache. She also complains of neck pain with shoulder pain, which she attributes to lifting the lid on a large trash can, and throwing trash into the can a few days ago. She says her left shoulder hurt initially, and is started to improve, but now the right shoulder hurts. She also states that she has had a cough, with some sinus drainage. She denies any chest pain or significant shortness of breath. No vomiting or diarrhea. Related Data Home Medications Medication Instructions Recorded Confirmed coenzyme Q10 [H2Q CoQ10] 1 cap PO DAILY 06/20/20 09/10/23 vitamin B complex [B 1 tab PO DAILY 06/20/20 09/10/23 Complex-Vitamin B12] aspirin 81 mg tablet,delayed 81 mg PO .every other day 09/24/22 09/10/23 release cholecalciferol (vitamin D3) 25 1,000 unit PO DAILY 09/24/22 09/10/23 mcg (1,000 unit) capsule fexofenadine 60 mg tablet 60 mg PO BID 04/10/23 09/10/23 cyanocobalamin (vitamin B-12) 1,000 mcg PO DAILY 09/10/23 09/10/23 1,000 mcg tablet furosemide 40 mg tablet 40 mg PO DAILY 09/10/23 09/10/23 Previous Rx's Medication Instructions Recorded atorvastatin 80 mg tablet 80 mg PO DAILY #30 tabs 10/19/22 famotidine 40 mg tablet See Rx Instructions .Route 11/26/22 .COMPLEX #30 tabs fluticasone propionate 50 2 spray intranasal DAILY #16 grams 03/27/23 mcg/actuation nasal spray,suspension (Flonase Allergy Relief) doxycycline hyclate 100 mg tablet 100 mg PO BID 10 days #20 tabs 09/06/23 losartan 25 mg tablet 25 mg PO DAILY #90 tabs 09/10/23 clopidogrel 75 mg tablet 75 mg PO DAILY #90 tabs 12/24/23 cefdinir 300 mg capsule 300 mg PO BID #14 caps 02/16/24 Allergies Allergy/AdvReac Type Severity Reaction Status Date / Time amlodipine Allergy Mild swelling Verified 09/10/23 15:38 of legs Penicillins Allergy Unknown Verified 09/10/23 15:36 Sulfa (Sulfonamide Allergy Unknown Verified 09/10/23 15:36 Antibiotics) PFSH ED 2 PFSH: Medical History History of benign ovarian tumor Dyslipidemia Mild aortic regurgitation Systolic murmur Fistula CKD (chronic kidney disease), stage III Osteoporosis Hyperlipemia, mixed Surgical History S/P gastric surgery Family History Mother CAD (coronary artery disease) Father CAD (coronary artery disease) Social History Smoking and tobacco/nicotine status: never used tobacco/nicotine Second hand smoke exposure: No Alcohol intake: never Substance/Drug Use: never Lives independently: Yes Marital status: Current occupational status: retired Current gender identity: Female Physical Exam 2 Const: COMMON NORMALS: no acute distress GENERAL APPEARANCE: cooperative and frail appearing (Mildly); not ill appearing HENMT: COMMON NORMALS: normocephalic, atraumatic and Normal external nose present HEAD & SCALP: normocephalic and atraumatic FACE & SINUS: normal facial exam and face symmetric NOSE: Normal external nose present Eye: COMMON NORMALS: Equal, round and reactive pupils present and EOMs intact bilaterally PUPIL: Yes Equal, round and reactive pupils present Neck/C-Spine: GENERAL: Yes trachea midline OTHER: No cervical spine tenderness. Range of motion is intact. The patient can flex her neck without excruciating pain into her back. Chest: CHEST: Yes Symmetrical chest wall rise Resp: COMMON NORMALS: normal respiratory effort, No retractions, No use of accessory muscles and clear to auscultation bilaterally AUSCULTATION: clear to auscultation bilaterally Cardio: COMMON NORMALS: regular rate and regular rhythm RATE: regular rate RHYTHM: regular rhythm GI: COMMON NORMALS: Normal to inspection, nondistended, normoactive bowel sounds present Extremity: COMMON NORMALS: no pedal edema NARRATIVE EXTREMITY EXAM: Mild tenderness to palpation over the anterior shoulder joint line on the right. Not on the left. No deformities. Pulses are normal. Sensation is intact. Neuro: DEBBI COMA SCALE: document GCS findings Debbi coma scale eye opening: Spontaneous Debbi coma scale verbal response: Orientated Debbi coma scale motor response: Obey commands Debbi coma scale total score: 15 S ENSORY EXAM: Yes extremities (intact) Psych: COMMON NORMALS: speech normal SPEECH: Yes normal speech Skin: COMMON NORMALS: no rashes or lesions noted GENERAL SKIN EXAM: no rashes or lesions noted Course 2 Vital Signs: Vital signs: Vital Signs Temperature 98.4 F 02/16/24 17:57 Pulse Rate 76 02/16/24 20:12 Respiratory Rate 15 02/16/24 19:30 Blood Pressure 171/69 02/16/24 20:12 Pulse Oximetry 97 02/16/24 20:12 Oxygen Delivery Me thod Room Air 02/16/24 19:30 MDM - Extremity (Nontraumatic) Medical Decision Making 88-year-old female with multiple complaints, no significant of which is a fever up to 102 today she says. She has been alternating Tylenol and ibuprofen. She is afebrile here. She is somewhat hypertensive, which she attributes to pain. Her white count is 9.3. Her hemoglobin is 11.5 CRP is 42. Sodium is 128. She is given 500 cc of fluid. She has a urinary tract infection on urinalysis. Chest x-ray is clear. She has received a gram of Rocephin. She will go home on antibiotics for UTI. She will return for continued fever, other concerning symptoms. Lab Data 02/16/24 18:26 02/16/24 18:26 Radiology Impressions Chest X-Ray 02/16/24 18:14 IMPRESSION: No acute cardiopulmonary findings. Laboratory Results WBC 9.29 10^3/uL (3.29-11.43) 02/16/24 18: RBC 4.50 10^6/uL (3.85-5.65) 02/16/24 18:26 Hgb 11.50 g/dL (11.27-16.99) 02/16/24 18: Hct 35.7 % (36-47) L 02/16/24 18: MCV 79.3 fl (85-98) L 02/16/24 18: MCH 25.6 pg (27-33) L 02/16/24 18: MCHC 32.2 g/dL (30-55) 02/16/24 18: RDW 15.9 % (12.1-15.1) H 02/16/24 18:26 Plt Count 263 10^3/cmm (157-399) 02/16/24 18: MPV 9.6 fL (7.4-10.4) 02/16/24 18: Neut % (Auto) 75.5 % 02/16/24 18: Lymph % (Auto) 13.2 % 02/16/24 18: [place] % (Auto) 10.7 % 02/16/24 18: Eos % (Auto) 0.1 % 02/16/24 18: Baso % (Auto) 0.3 % 02/16/24 18: Neut # (Auto) 7.01 10^3/uL (1.8-7.7) 02/16/24 18: Lymph # (Auto) 1.2 10^3/uL (0.8-4.8) 02/16/24 18: [place] # (Auto) 1.0 10^3/uL (0.2-0.9) H 02/16/24 18: Eos # (Auto) 0.0 10^3/uL (0.0-0.8) 02/16/24 18: Baso # (Auto) 0.0 10^3/uL (0.0-0.1) 02/16/24 18: Nucleated RBC % (auto) 0 % 02/16/24 18: Nucleated RBCs # 0.0 /100WBC 02/16/24 18: Sodium 128 mmol/L (136-145) L 02/16/24 18: Potassium 3.7 mmol/L (3.5-5.1) 02/16/24 18:26 Chloride 95 mmol/L (98-107) L 02/16/24 18:26 Carbon Dioxide 23 mmol/L (22-29) 02/16/24 18: Anion Gap 13.7 (5-19) 02/16/24 18:26 BUN 11 mg/dL (8-23) 02/16/24 18: Creatinine 0.9 mg/dL (0.5-0.9) 02/16/24 18:26 GFR Calculation Not Reportable 02/16/24 18: Glucose 184 mg/dL (65-115) H 02/16/24 18:26 Calculated Osmolality 270 mOsm/kg (285-295) L 02/16/24 18:26 Lactic Acid 1.3 mmol/L (0.5-2.2) 02/16/24 18:26 Calcium 8.3 mg/dL (8.5-10.5) L 02/16/24 18:26 Total Bilirubin 0.4 mg/dL (0.15-1.2) 02/16/24 18: AST 16 U/L (0-32) 02/16/24 18: ALT 19 U/L (0-33) 02/16/24 18:26 Alkaline Phosphatase 95 U/L (35-105) 02/16/24 18:26 C-Reactive Protein 42.8 mg/L (0.0-4.9) H 02/16/24 18:26 Total Protein 7.4 g/dL (6.6-8.7) 02/16/24 18: Albumin 4.0 g/dL (3.5-5.2) 02/16/24 18:26 Globulin 3.4 g/dL (1.3-4.6) 02/16/24 18:26 Urine Color Yellow (Yellow) 02/16/24 18:40 Urine Appearance Clear (CLEAR) 02/16/24 18:40 Urine pH 7.0 (5-7) 02/16/24 18:40 Ur Specific [place] 1.013 (1.005-1.030) 02/16/24 18:40 Urine Protein Negative (Negative) 02/16/24 18:40 Urine Glucose (UA) 1+ (Normal) H 02/16/24 18:40 Urine Ketones Negative (Negative) 02/16/24 18:40 Urine Blood Negative (Negative) 02/16/24 18:40 Urine Nitrate Negative (Negative) 02/16/24 18:40 Urine Bilirubin Negative (Negative) 02/16/24 18:40 Urine Urobilinogen 0.2 mg/dL (Negative) 02/16/24 18:40 Ur Leukocyte Esterase 2+ (Negative) A 02/16/24 18:40 Urine RBC 0-4 /hpf (0-2) H 02/16/24 18:40 Urine WBC 25-40 /hpf (0-5) H 02/16/24 18:40 Ur Squamous Epith Cells 15-25 /hpf (0-5) H 02/16/24 18:40 Amorphous Sediment Not Reportable 02/16/24 18:40 Urine Bacteria 1+ /hpf (NONE) H 02/16/24 18:40 Coronavirus 229E (PCR) Not detected (NOT DETECT) 02/16/24 18:35 SARS-CoV-2 (PCR) Not detected (NOT DETECT) 02/16/24 18:35 All radiology interpretation(s) finalized by discharge Discharge Plan Discharge Patient Disposition: Home Clinical Impression: Fever UTI (urinary tract infection) Qualifiers: Urinary tract infection type: site unspecified Hematuria presence: with hematuria Qualified Code(s): N39.0 - Urinary tract infection, site not specified Condition: Stable Prescriptions: New cefdinir 300 mg capsule 300 mg PO BID Qty: 14 0RF No Action coenzyme Q10 1 cap PO DAILY vitamin B complex 1 tab PO DAILY aspirin 81 mg tablet,delayed release (DR/EC) 81 mg PO .every other day cholecalciferol (vitamin D3) 25 mcg (1,000 unit) capsule 1,000 unit PO DAILY furosemide 40 mg tablet 40 mg PO DAILY cyanocobalamin (vitamin B-12) 1,000 mcg tablet 1,000 mcg PO DAILY losartan 25 mg tablet 25 mg PO DAILY Qty: 90 3RF fluticasone propionate [Flonase Allergy Relief] 50 mcg/actuation spray,suspension 2 spray INTRANASAL DAILY Qty: 16 2RF Rx Instructions: administer into each nostril atorvastatin 80 mg tablet 80 mg PO DAILY Qty: 30 3RF Rx Instructions: Take at bedtime doxycycline hyclate 100 mg tablet 100 mg PO BID 10 Days Qty: 20 0RF famotidine 40 mg tablet See Rx Instructions .ROUTE .COMPLEX Qty: 30 3RF Dose Instruction: TAKE ONE TABLET BY MOUTH DAILY Rx Instructions: TAKE ONE TABLET BY MOUTH DAILY clopidogrel 75 mg tablet 75 mg PO DAILY Qty: 90 3RF fexofenadine 60 mg Tablet 60 mg PO BID Discharge Orders: Discharge ED (Routine); Ordered 02/16/24 Ordered By: Yasmani Du Referrals: Jose Almazan MD [Primary Care Provider] - 1-3 days Patient Instructions: Urinary Tract Infection in Older Adults (ED), Opioid Safety, Pain Management Activity Restrictions/Additional Instructions: Return for fevers despite 2-3 more doses of antibiotics, worsening mental status, worsening pain despite treatment, any other concerning symptoms. Call your doctor in the morning for a follow-up appointment this week. 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
[2024-02-16 18:55] LABS: Bilirubin Urine Negative (Negative); Blood Urine Negative (Negative); Glucose Urine UA 1+ (Normal); Ketones Urine Negative (Negative); Leukocyte Esterase Urine 2+ (Negative); Nitrate Urine Negative (Negative); Protein Urine Negative (Negative); Specific Gravity, Urine 1.013 (1.005-1.030); Urine Appearance Clear (CLEAR); Urine Color Yellow (Yellow); Urobilinogen Urine 0.2 mg/dL (Negative)
[2024-02-16 18:59] LABS: Alanine Aminotransferase 19 U/L (0-33); Alkaline Phosphatase 95 U/L (35-105); Anion Gap 13.7 (5-19); Aspartate Amino Transferase 16 U/L (0-32); Blood Urea Nitrogen 11 mg/dL (8-23); C Reactive Protein 42.8 mg/L (0.0-4.9); Calcium 8.3 mg/dL (8.5-10.5); Carbon Dioxide 23 mmol/L (22-29); Chloride 95 mmol/L (98-107); Creatinine Clr Calc Pharmacy 40.3052; Globulin 3.4 g/dL (1.3-4.6); Glucose 184 mg/dL (65-115); Osmolality Calculated 270 mOsm/kg (285-295); Potassium 3.7 mmol/L (3.5-5.1); Sodium 128 mmol/L (136-145); Total Bilirubin 0.4 mg/dL (0.15-1.2); Total Protein 7.4 g/dL (6.6-8.7)
[2024-02-16 19:00] LABS: Lactic Sepsis W/Reflex 1.3 mmol/L (0.5-2.2)
[2024-02-16 19:02] VITALS: BP 178/66; PULSE 89; RESP 16; O2SAT 95
[2024-02-16 19:06] LABS: Add Urine Microscopic? YES; Bacteria Urine 1+ /hpf; RBC Urine 0-4 /hpf (0-2); Squamous Epithelial Cell Urine 15-25 /hpf (0-5); UA Manual Slide Review YES; WBC Urine 25-40 /hpf (0-5)
[2024-02-16] MEDS: sodium chloride 0.9% 500 ML 999 ML IV (19:21)
[2024-02-16] MEDS: ketorolac 30 mg/mL INJ 15 MG IVP (19:23)
[2024-02-16] MEDS: cefTRIAXone 1,000 mg SDV 1000 MG IVP (19:24)
[2024-02-16 19:30] VITALS: PULSE 76; RESP 15; O2SAT 99
[2024-02-16] MEDS: oxyCODONE-APAP 5-325 mg Tablet 2 TAB PO (20:03)
[2024-02-16 20:12] VITALS: BP 171/69; PULSE 76; O2SAT 97
[2024-02-16 20:43] LABS: Adenovirus Not Detected (NOT DETECT); Chlamydia Pneumoniae Not Detected (NOT DETECT); Coronavirus 229E,HKU1,NL63,OC4 Not Detected (NOT DETECT); Human Metapneumovirus Not Detected (NOT DETECT); Human Rhinovirus/Enterovirus Not Detected (NOT DETECT); Influenza A Not Detected (NOT DETECT); Influenza A H1 Not Detected (NOT DETECT); Influenza A H1-2009 Not Detected (NOT DETECT); Influenza A H3 Not Detected (NOT DETECT); Influenza B Not Detected (NOT DETECT); Mycoplasma Pneumoniae Not Detected (NOT DETECT); Parainfluenza Virus Type 1 Not Detected (NOT DETECT); Parainfluenza Virus Type 2 Not Detected (NOT DETECT); Parainfluenza Virus Type 3 Not Detected (NOT DETECT); Parainfluenza Virus Type 4 Not Detected (NOT DETECT); Respiratory Syncytial Virus A Not Detected (NOT DETECT); Respiratory Syncytial Virus B Not Detected (NOT DETECT); SARS-COV-2 Not Detected (NOT DETECT)
== END 2024-02-16 20:23 | disposition home or self-care (01) ==
PROVIDERS: Emergency Provider Emergency Medicine; PCP Internal Medicine
DX: N39.0 Urinary tract infection, site not specified (principal); M54.2 Cervicalgia; R51.9 Headache, unspecified; M25.512 Pain in left shoulder; M25.511 Pain in right shoulder
CPT/HCPCS: 36415; 71046; 80053; 81001; 83605; 85025; 86140; 87040; 87635; 96361; 96374; 96375; 99284; J0696; J1885; J2270; J2405; J7040

== ENCOUNTER 2024-02-22 08:00 | Emergency (ER) | payer OTHER, SELFPAY ==
--- NOTE | 2024-02-22 08:12 | ED_ITS ---
HPI - General Adult 2 General: Chief complaint: Headache Stated complaint: low temp, diarrhea, major headache Time Seen by Provider: 02/22/24 08:01 History of Present Illness: 88-year-old female presents emergency ro om with headache and what she describes as low body temperature. She was here 6 days ago found to have UTI has been taking the antibiotics complaining of head neck and shoulder pain that began after she was throwing some trash away and strained some muscles a few hours later she started having shoulder and neck pain. Parent reports a temp of 95 4 at home no shortness of breath no chest pain. She does have significantly elevated blood pressure when she initially arrived she has not taken her regular morning medications today. She denies any sharp abdominal pain or flank pain. She denies any further dysuria. She has chronic edema of her lower extremities. No loss of consciousness no focal neurologic deficits no vision or swallowing difficulty Associated symptoms: Reports headache(s); Deny chest pain, dyspnea or rash Related Data Home Medications Medication Instructions Recorded Confirmed aspirin 81 mg tablet,delayed 81 mg PO .every other day 09/24/22 02/22/24 release cholecalciferol (vitamin D3) 25 1,000 unit PO DAILY 09/24/22 02/22/24 mcg (1,000 unit) capsule fexofenadine 60 mg tablet 60 mg PO DAILY 04/10/23 02/22/24 cyanocobalamin (vitamin B-12) 1,000 mcg PO DAILY 09/10/23 02/22/24 1,000 mcg tablet atorvastatin 80 mg tablet 80 mg PO BEDTIME 02/22/24 02/22/24 celecoxib 200 mg capsule 200 mg PO DAILY 02/22/24 02/22/24 coenzyme Q10 30 mg capsule (Co 30 mg PO DAILY 02/22/24 02/22/24 Q-10) ferrous gluconate 324 mg (38 mg 324 mg PO DAILY 02/22/24 02/22/24 iron) tablet sodium chloride 0.65 % nasal spray 1 spray intranasal BID PRN 02/22/24 02/22/24 aerosol allergies tizanidine 4 mg tablet 4 mg PO BEDTIME PRN Spasms 02/22/24 02/22/24 vitamin B complex 1 tab PO DAILY 02/22/24 02/22/24 Previous Rx's Medication Instructions Recorded losartan 25 mg tablet 25 mg PO DAILY #90 tabs 09/10/23 clopidogrel 75 mg tablet 75 mg PO DAILY #90 tabs 12/24/23 cefdinir 300 mg capsule 300 mg PO BID #14 caps 02/16/24 Allergies Allergy/AdvReac Type Severity Reaction Status Date / Time amlodipine Allergy Mild swelling Verified 09/10/23 15:38 of legs Penicillins Allergy Unknown Verified 09/10/23 15:36 Sulfa (Sulfonamide Allergy Unknown Verified 09/10/23 15:36 Antibiotics) Review of Systems 2 Const: Denies: fever(s) or chills Card: Denies: chest pain Resp: Denies: dyspnea GI: Denies: abdominal pain : Denies: dysuria, urinary frequency or urinary urgency Musc: Reports: neck pain; Denies: back pain Skin/Breast: Denies: rash Neuro: Reports: headache(s) PFSH ED 2 PFSH: Medical History History of benign ovarian tumor Dyslipidemia Mild aortic regurgitation Systolic murmur Fistula CKD (chronic kidney disease), stage III Osteoporosis Hyperlipemia, mixed Surgical History S/P gastric surgery Family History Mother CAD (coronary artery disease) Father CAD (coronary artery disease) Social History Smoking and tobacco/nicotine status: never used tobacco/nicotine Second hand smoke exposure: No Alcohol intake: never Substance/Drug Use: never Lives independently: Yes Marital status: Current occupational status: retired Current gender identity: Female Physical Exam 2 Const: COMMON NORMALS: no acute distress GENERAL APPEARANCE: cooperative and comfortable ORIENTATION/CONSCIOUSNESS: Yes awake, Yes oriented to person, Yes oriented to place and Yes oriented to time HENMT: COMMON NORMALS: normocephalic, atraumatic and hearing grossly normal bilaterally HEAD & SCALP: normocephalic and atraumatic Resp: COMMON NORMALS: normal respiratory effort, No retractions, No use of accessory muscles and clear to auscultation bilaterally AUSCULTATION: clear to auscultation bilaterally Cardio: COMMON NORMALS: regular rate, regular rhythm and No murmurs present (Cardio) RATE: regular rate RHYTHM: regular rhythm GI: COMMON NORMALS: Soft to palpation and No hepatosplenomegaly present A USCULTATION: Yes normoactive bowel sounds PALPATION: Yes Soft to palpation, No Tenderness to palpation present (GI), No Guarding due to palpation present (GI) and Yes No hepatosplenomegaly present Extremity: COMMON NORMALS: normal to inspection, capillary refill normal, no clubbing, cyanosis or edema, no calf tenderness and no pedal edema Neuro: SENSORIUM/ORIENTATION: Yes oriented to person, Yes oriented to place and Yes oriented to time Skin: COMMON NORMALS: no rashes or lesions noted GENERAL SKIN EXAM: no rashes or lesions noted Course 2 Vital Signs: Vital signs: Vital Signs Temperature 97.4 F L 02/22/24 09:31 Pulse Rate 64 02/22/24 11:17 Respiratory Rate 16 02/22/24 09:31 Blood Pressure 162/67 02/22/24 11:17 Pulse Oximetry 95 02/22/24 11:17 Oxygen Delivery Me thod Room Air 02/22/24 09:31 MDM - General Adult Medical Decision Making Patient has no focal neurologic deficits noted. Headache I believe is partially from her blood pressure that improved after she was given blood pressure medications. The neck and back pain started earlier this week I think after she had been doing some lifting and throwing some trash into a trash can. Some of this may be exacerbated by side effects from the tizanidine as well. Patient urine in the emergency room does not show signs of infection to do recommend that she complete the course of cefdinir. Temp was normal while in the emergency room suspect it may have been an anomaly or missed reading at home. She otherwise looks good there is no sign of sepsis will discharge patient home and have her follow-up with her primary care. Lab Data 02/22/24 08:21 02/22/24 08:21 Radiology Impressions Chest X-Ray 02/22/24 08:14 IMPRESSION: No acute cardiopulmonary process. Laboratory Results WBC 10.90 10^3/uL (3.29-11.43) 02/22/24 08:21 RBC 4.35 10^6/uL (3.85-5.65) 02/22/24 08:21 Hgb 10.90 g/dL (11.27-16.99) L 02/22/24 08:21 Hct 34.2 % (36-47) L 02/22/24 08:21 MCV 78.6 fl (85-98) L 02/22/24 08:21 MCH 25.1 pg (27-33) L 02/22/24 08:21 MCHC 31.9 g/dL (30-55) 02/22/24 08:21 RDW 15.1 % (12.1-15.1) 02/22/24 08:21 Plt Count 337 10^3/cmm (157-399) 02/22/24 08:21 MPV 9.5 fL (7.4-10.4) 02/22/24 08:21 Neut % (Auto) 70.5 % 02/22/24 08:21 Lymph % (Auto) 22.8 % 02/22/24 08:21 [place] % (Auto) 5.7 % 02/22/24 08:21 Eos % (Auto) 0.3 % 02/22/24 08:21 Baso % (Auto) 0.4 % 02/22/24 08:21 Neut # (Auto) 7.70 10^3/uL (1.8-7.7) 02/22/24 08:21 Lymph # (Auto) 2.5 10^3/uL (0.8-4.8) 02/22/24 08:21 [place] # (Auto) 0.6 10^3/uL (0.2-0.9) 02/22/24 08:21 Eos # (Auto) 0.0 10^3/uL (0.0-0.8) 02/22/24 08:21 Baso # (Auto) 0.0 10^3/uL (0.0-0.1) 02/22/24 08:21 Nucleated RBC % (auto) 0 % 02/22/24 08: Nucleated RBCs # 0.0 /100WBC 02/22/24 08:21 Sodium 132 mmol/L (136-145) L 02/22/24 08:21 Potassium 4.2 mmol/L (3.5-5.1) 02/22/24 08:21 Chloride 95 mmol/L (98-107) L 02/22/24 08:21 Carbon Dioxide 25 mmol/L (22-29) 02/22/24 08:21 Anion Gap 16.2 (5-19) 02/22/24 08:21 BUN 12 mg/dL (8-23) 02/22/24 08:21 Creatinine 0.9 mg/dL (0.5-0.9) 02/22/24 08:21 GFR Calculation Not Reportable 02/22/24 08:21 Glucose 117 mg/dL (65-115) H 02/22/24 08:21 Calculated Osmolality 275 mOsm/kg (285-295) L 02/22/24 08:21 Lactic Acid 1.0 mmol/L (0.5-2.2) 02/22/24 08:21 Calcium 8.6 mg/dL (8.5-10.5) 02/22/24 08:21 Magnesium 1.9 mg/dL (1.7-2.3) 02/22/24 08:21 Total Bilirubin 0.2 mg/dL (0.15-1.2) 02/22/24 08:21 AST 25 U/L (0-32) 02/22/24 08:21 ALT 27 U/L (0-33) 02/22/24 08:21 Alkaline Phosphatase 96 U/L (35-105) 02/22/24 08:21 Total Protein 7.2 g/dL (6.6-8.7) 02/22/24 08:21 Albumin 4.0 g/dL (3.5-5.2) 02/22/24 08:21 Globulin 3.2 g/dL (1.3-4.6) 02/22/24 08:21 Lipase 51 U/L (13-60) 02/22/24 08:21 Urine Color Yellow (Yellow) 02/22/24 09:15 Urine Appearance Clear (CLEAR) 02/22/24 09:15 Urine pH 7.0 (5-7) 02/22/24 09:15 Ur Specific [place] 1.004 (1.005-1.030) L 02/22/24 09:15 Urine Protein Negative (Negative) 02/22/24 09:15 Urine Glucose (UA) Negative (Normal) 02/22/24 09:15 Urine Ketones Negative (Negative) 02/22/24 09:15 Urine Blood Negative (Negative) 02/22/24 09:15 Urine Nitrate Negative (Negative) 02/22/24 09:15 Urine Bilirubin Negative (Negative) 02/22/24 09:15 Urine Urobilinogen 0.2 mg/dL (Negative) 02/22/24 09:15 Ur Leukocyte Esterase Trace (Negative) A 02/22/24 09:15 Urine RBC 0-2 /hpf (0-2) 02/22/24 09:15 Urine WBC 0-5 /hpf (0-5) 02/22/24 09:15 Ur Squamous Epith Cells 0-5 /hpf (0-5) 02/22/24 09:15 Amorphous Sediment Not Reportable 02/22/24 09:15 Urine Bacteria None seen /hpf (NONE) 02/22/24 09:15 Hyaline Casts 0-4 /lpf H 02/22/24 09:15 C. difficile (PCR) Negative (Negative) 02/22/24 09:19 Coronavirus (PCR) Negative (Negative) 02/22/24 08:51 Influenza A (PCR) Negative (Negative) 02/22/24 08:51 Influenza Type B (PCR) Negative (Negative) 02/22/24 08:51 RSV (PCR) Negative (Negative) 02/22/24 08:51 All radiology interpretation(s) finalized by discharge Discharge Plan Discharge Patient Disposition: Home Clinical Impression: Elevated blood pressure reading, Headache Condition: Stable Prescriptions: No Action aspirin 81 mg tablet,delayed release (DR/EC) 81 mg PO .every other day cholecalciferol (vitamin D3) 25 mcg (1,000 unit) capsule 1,000 unit PO DAILY cyanocobalamin (vitamin B-12) 1,000 mcg tablet 1,000 mcg PO DAILY losartan 25 mg tablet 25 mg PO DAILY Qty: 90 3RF clopidogrel 75 mg tablet 75 mg PO DAILY Qty: 90 3RF fexofenadine 60 mg Tablet 60 mg PO DAILY celecoxib 200 mg capsule 200 mg PO DAILY tizanidine 4 mg tablet 4 mg PO BEDTIME PRN (Reason: Spasms) vitamin B complex Tablet 1 tab PO DAILY coenzyme Q10 [Co Q-10] 30 mg Capsule 30 mg PO DAILY [place] Nasal 0.65 % Aerosol,[employer] 1 spray INTRANASAL BID PRN (Reason: allergies) ferrous gluconate 324 mg (38 mg iron) tablet 324 mg PO DAILY atorvastatin 80 mg tablet 80 mg PO BEDTIME cefdinir 300 mg capsule 300 mg PO BID Qty: 14 0RF Discharge Orders: Discharge ED (Routine); Ordered 02/22/24 Ordered By: Clay Ngo Referrals: Jose Almazan MD [Primary Care Provider] - Discharge Diet: Usual diet Discharge Activity: Increase activity as tolerated Patient Instructions: Opioid Safety, Pain Management Activity Restrictions/Additional Instructions: Thank you for choosing [facility] for your healthcare needs today. It is very important that you follow up as instructed or that you return to the Emergency Department should you have concerns or if your condition changes or worsens in any way. You are seen in the emergency room with complaint of headache and neck pain. Suspect your neck pain is due to straining earlier as you had described to us when you are throwing some objects in the trash. Continue to use the medications you are prescribed previously. Recommend decreasing your tizanidine to a half a tablet (2 mg when you do take it. Complete the course of cefdinir you were previously prescribed laboratory test did not show persistent bladder infection at this time. Suspect some of your headache was due to elevated blood pressure did respond well to the your regular blood pressure medications you should follow-up with your doctor within the next week to reevaluate your blood pressure. Your temperature was normal while you are in the emergency room and did not reflect any significant hypothermia. Coding Level of Care Code ED Director Of Student Aid for [facility]
--- NOTE | 2024-02-22 08:14 | XRR_ITS ---
PROCEDURE INFORMATION: Exam: XR Chest Exam date and time: 02/22/2024 8:29 AM Age: 88 years old Clinical indication: Cough and dyspnea; Prior surgery; Surgery date: 6+ months; Surgery type: Stents; Additional info: Dyspnea/cough TECHNIQUE: Imaging protocol: Radiologic exam of the chest. Views: 1 view. COMPARISON: CR XR chest 2V* [id number] 02/16/2024 6:46 PM FINDINGS: Lungs: Unremarkable. No consolidation. Pleural spaces: Unremarkable. No pleural effusion. No pneumothorax. Heart/Mediastinum: Post TAVR. Vasculature: Unfolding of the thoracic aorta. Aortic arch calcifications. 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 XR/XR chest 1V portable [id number] IMPRESSION: No acute cardiopulmonary process.
[2024-02-22 08:18] VITALS: BP 184/53; PULSE 75; RESP 19; TEMP 36.7; O2SAT 97; BMI 29.2
[2024-02-22 08:27] LABS: Basophils % 0.4 %; Eosinophils % 0.3 %; Hematocrit 34.2 % (36-47); Lymphocytes # 2.5 10^3/uL (0.8-4.8); Lymphocytes % 22.8 %; Mean Corpuscular HGB Conc 31.9 g/dL (30-55); Mean Corpuscular Hemoglobin 25.1 pg (27-33); Mean Corpuscular Volume 78.6 fl (85-98); Mean Platelet Volume 9.5 fL (7.4-10.4); Monocytes # 0.6 10^3/uL (0.2-0.9); Monocytes % 5.7 %; Neutrophils % 70.5 %; Nucleated Red Blood Cells % 0 %; Platelet Count 337 10^3/cmm (157-399); Red Blood Count 4.35 10^6/uL (3.85-5.65); Red Cell Distribution Width 15.1 % (12.1-15.1)
[2024-02-22 08:45] VITALS: BP 167/48
[2024-02-22] MEDS: clopidogrel 75 mg Tablet PO (08:45)
[2024-02-22] MEDS: losartan 50 mg Tablet 25 MG PO (08:45)
[2024-02-22] MEDS: FUROsemide 40 mg Tablet PO (08:45)
[2024-02-22 08:46] LABS: Alanine Aminotransferase 27 U/L (0-33); Alkaline Phosphatase 96 U/L (35-105); Anion Gap 16.2 (5-19); Aspartate Amino Transferase 25 U/L (0-32); Blood Urea Nitrogen 12 mg/dL (8-23); Calcium 8.6 mg/dL (8.5-10.5); Carbon Dioxide 25 mmol/L (22-29); Chloride 95 mmol/L (98-107); Creatinine Clr Calc Pharmacy 40.3052; Globulin 3.2 g/dL (1.3-4.6); Glucose 117 mg/dL (65-115); Osmolality Calculated 275 mOsm/kg (285-295); Potassium 4.2 mmol/L (3.5-5.1); Sodium 132 mmol/L (136-145); Total Bilirubin 0.2 mg/dL (0.15-1.2); Total Protein 7.2 g/dL (6.6-8.7)
[2024-02-22 08:52] LABS: Lipase 51 U/L (13-60); Magnesium 1.9 mg/dL (1.7-2.3)
[2024-02-22] MEDS: ketorolac 30 mg/mL INJ 15 MG IVP (09:22)
[2024-02-22 09:23] LABS: Add Urine Microscopic? NO
[2024-02-22 09:28] LABS: Bilirubin Urine Negative (Negative); Blood Urine Negative (Negative); Glucose Urine UA Negative (Normal); Ketones Urine Negative (Negative); Leukocyte Esterase Urine Trace (Negative); Nitrate Urine Negative (Negative); Protein Urine Negative (Negative); Specific Gravity, Urine 1.004 (1.005-1.030); Urine Appearance Clear (CLEAR); Urine Color Yellow (Yellow); Urobilinogen Urine 0.2 mg/dL (Negative)
[2024-02-22 09:31] VITALS: BP 184/56; PULSE 63; RESP 16; TEMP 36.3; O2SAT 98
[2024-02-22 09:32] LABS: Bacteria Urine None Seen /hpf; Hyaline Casts Urine 0-4 /lpf; RBC Urine 0-2 /hpf (0-2); Squamous Epithelial Cell Urine 0-5 /hpf (0-5); WBC Urine 0-5 /hpf (0-5)
[2024-02-22 09:36] LABS: Charge for UA Resulting for Rev
[2024-02-22 09:47] LABS: Covid PCR NEGATIVE (Negative); Influenza A NEGATIVE (Negative); Influenza B NEGATIVE (Negative); Respiratory Syncytial Virus Ce NEGATIVE (Negative)
[2024-02-22 10:31] LABS: C.Diff PCR (Lab) NEGATIVE (Negative)
[2024-02-22 11:17] VITALS: BP 162/67; PULSE 64; O2SAT 95
== END 2024-02-22 11:19 | disposition home or self-care (01) ==
PROVIDERS: Emergency Provider Family Medicine; PCP Internal Medicine
DX: R51.9 Headache, unspecified (principal); R03.0 Elevated blood-pressure reading, without diagnosis of hypertension; Z11.52 Encounter for screening for COVID-19; N18.30 Chronic kidney disease, stage 3 unspecified
CPT/HCPCS: 0241U; 71045; 80053; 81003; 82274; 83605; 83690; 83735; 85025; 87040; 87493; 96374; 99284; J1885

== ENCOUNTER 2024-02-29 12:25 | Inpatient (IN) | payer MEDICARE, SELFPAY ==
[2024-02-29] VITALS (20 sets, daily range): BP systolic 111–157; BP diastolic 48–84; PULSE 86–102; RESP 15–32; TEMP 37.1–38.3; O2SAT 91–99
--- NOTE | 2024-02-29 12:39 | ED_ITS ---
HPI - General Adult 2 General: Chief complaint: Nausea/Vomiting/Diarrhea Stated complaint: fever; diarrhea Time Seen by Provider: 02/29/24 12:33 History of Present Illness: 80-year-old female presents emergency ro om with complaints of fever. She was seen several times in the last couple weeks initially she had a mild bladder infection actually showed almost as many squamous cells as white culture was not done she was treated with antibiotics on a follow-up visit her urine had cleared. She never had any leukocytosis. Patient had blood cultures done on 02 21 and on 1026 both of which were negative. She has completed the antibiotics that we did give her for the bladder infection previously. She is complaining of some bloating and cramping and is now having some diarrhea as well. No cough or shortness of breath. Associated symptoms: Reports nausea and vomiting; Deny chest pain, dyspnea or rash Related Data Home Medications Medication Instructions Recorded Confirmed aspirin 81 mg tablet,delayed 81 mg PO .every other day 09/24/22 02/29/24 release cholecalciferol (vitamin D3) 25 1,000 unit PO DAILY 09/24/22 02/29/24 mcg (1,000 unit) capsule cyanocobalamin (vitamin B-12) 1,000 mcg PO DAILY 09/10/23 02/29/24 1,000 mcg tablet atorvastatin 80 mg tablet 80 mg PO BEDTIME 02/22/24 02/29/24 celecoxib 200 mg capsule 200 mg PO DAILY 02/22/24 02/29/24 coenzyme Q10 30 mg capsule (Co 30 mg PO DAILY 02/22/24 02/29/24 Q-10) ferrous gluconate 324 mg (38 mg 324 mg PO DAILY 02/22/24 02/29/24 iron) tablet sodium chloride 0.65 % nasal spray 1 spray intranasal BID PRN 02/22/24 02/29/24 aerosol allergies tizanidine 4 mg tablet 4 mg PO BEDTIME PRN Spasms 02/22/24 02/29/24 vitamin B complex 1 tab PO DAILY 02/22/24 02/29/24 loratadine 10 mg tablet (Claritin) 10 mg PO DAILY PRN allergies 02/29/24 02/29/24 Previous Rx's Medication Instructions Recorded losartan 25 mg tablet 25 mg PO DAILY #90 tabs 09/10/23 clopidogrel 75 mg tablet 75 mg PO DAILY #90 tabs 12/24/23 Allergies Allergy/AdvReac Type Severity Reaction Status Date / Time amlodipine Allergy Mild swelling Verified 09/10/23 15:38 of legs Penicillins Allergy Unknown Verified 09/10/23 15:36 Sulfa (Sulfonamide Allergy Unknown Verified 09/10/23 15:36 Antibiotics) Review of Systems 2 Const: Reports: fever(s), change in appetite and fatigue; Denies: chills Card: Denies: chest pain Resp: Denies: dyspnea GI: Reports: abdominal pain, nausea, vomiting, bloating and GI cramping : Denies: dysuria, urinary frequency or urinary urgency Musc: Denies: neck pain or back pain Skin/Breast: Denies: rash PFSH ED 2 PFSH: Medical History History of benign ovarian tumor Dyslipidemia Mild aortic regurgitation Systolic murmur Fistula CKD (chronic kidney disease), stage III Osteoporosis Hyperlipemia, mixed Surgical History S/P gastric surgery Family History Mother CAD (coronary artery disease) Father CAD (coronary artery disease) Social History Smoking and tobacco/nicotine status: never used tobacco/nicotine Second hand smoke exposure: No Alcohol intake: never Substance/Drug Use: never Lives independently: Yes Marital status: Current occupational status: retired Current gender identity: Female Physical Exam 2 Const: GENERAL APPEARANCE: cooperative ORIENTATION/CONSCIOUSNESS: Yes awake, Yes oriented to person, Yes oriented to place and Yes oriented to time HENMT: COMMON NORMALS: normocephalic, atraumatic and hearing grossly normal bilaterally HEAD & SCALP: normocephalic and atraumatic Resp: COMMON NORMALS: normal respiratory effort, No retractions, No use of accessory muscles and clear to auscultation bilaterally AUSCULTATION: clear to auscultation bilaterally Cardio: COMMON NORMALS: regular rate, regular rhythm and No murmurs present (Cardio) RATE: regular rate RHYTHM: regular rhythm GI: COMMON NORMALS: No hepatosplenomegaly present INSPECTION: Yes abdominal distension AUSCULTATION: Yes normoactive bowel sounds PALPATION: Yes Tenderness to palpation present (GI), No Guarding due to palpation present (GI) and Yes No hepatosplenomegaly present Extremity: COMMON NORMALS: normal to inspection, capillary refill normal, no clubbing, cyanosis or edema, no calf tenderness and no pedal edema Neuro: SENSORIUM/ORIENTATION: Yes oriented to person, Yes oriented to place and Yes oriented to time Skin: COMMON NORMALS: no rashes or lesions noted GENERAL SKIN EXAM: no rashes or lesions noted Course 2 Vital Signs: Vital signs: Vital Signs Temperature 100.9 F H 02/29/24 12:44 Pulse Rate 90 02/29/24 15:30 Respiratory Rate 32 H 02/29/24 15:30 Blood Pressure 129/48 02/29/24 15:30 Pulse Oximetry 94 02/29/24 15:30 MDM - General Adult Medical Decision Making Elevated at 32,000 lactic acid elevated as well CT shows diverticulitis. Was started on Cipro and Flagyl initially with no white count came back with concerns for recurrent cystitis and gave her ceftriaxone. Discussed with hospitalist will admit reviewed findings with family Medical Records I reviewed the patient's medical records. Lab Data I reviewed the patient's lab results. 02/29/24 11:53 02/29/24 12:49 Radiology Impressions Chest X-Ray 02/29/24 12:43 IMPRESSION: No acute cardiopulmonary process. Abdomen/Pelvis CT 02/29/24 13:01 IMPRESSION: There is mild bowel wall thickening of the distal left colon and mild hyperemia. Differential diagnosis includes colitis or acute diverticulitis. Laboratory Results WBC 32.86 10^3/uL (3.29-11.43) H* 02/29/24 11:53 RBC 4.43 10^6/uL (3.85-5.65) 02/29/24 11:53 Hgb 11.40 g/dL (11.27-16.99) 02/29/24 11:53 Hct 35.0 % (36-47) L 02/29/24 11:53 MCV 79.0 fl (85-98) L 02/29/24 11:53 MCH 25.7 pg (27-33) L 02/29/24 11:53 MCHC 32.6 g/dL (30-55) 02/29/24 11:53 RDW 15.5 % (12.1-15.1) H 02/29/24 11:53 Plt Count 328 10^3/cmm (157-399) 02/29/24 11:53 MPV 9.7 fL (7.4-10.4) 02/29/24 11:53 Neut % (Auto) 89.6 % 02/29/24 11:53 Lymph % (Auto) 3.4 % 02/29/24 11:53 [place] % (Auto) 5.9 % 02/29/24 11:53 Eos % (Auto) 0.0 % 02/29/24 11:53 Baso % (Auto) 0.2 % 02/29/24 11:53 Neut # (Auto) 29.43 10^3/uL (1.8-7.7) H 02/29/24 11:53 Lymph # (Auto) 1.1 10^3/uL (0.8-4.8) 02/29/24 11:53 [place] # (Auto) 1.9 10^3/uL (0.2-0.9) H 02/29/24 11:53 Eos # (Auto) 0.0 10^3/uL (0.0-0.8) 02/29/24 11:53 Baso # (Auto) 0.1 10^3/uL (0.0-0.1) 02/29/24 11:53 Nucleated RBC % (auto) 0 % 02/29/24 11:53 Nucleated RBCs # 0.0 /100WBC 02/29/24 11:53 Sodium 128 mmol/L (136-145) L 02/29/24 12:49 Potassium 3.9 mmol/L (3.5-5.1) 02/29/24 12:49 Chloride 93 mmol/L (98-107) L 02/29/24 12:49 Carbon Dioxide 20 mmol/L (22-29) L 02/29/24 12:49 Anion Gap 18.9 (5-19) 02/29/24 12:49 BUN 14 mg/dL (8-23) 02/29/24 12:49 Creatinine 1.2 mg/dL (0.5-0.9) H 02/29/24 12:49 GFR Calculation Not Reportable 02/29/24 12:49 Glucose 147 mg/dL (65-115) H 02/29/24 12:49 Calculated Osmolality 269 mOsm/kg (285-295) L 02/29/24 12:49 Lactic Acid 2.3 mmol/L (0.5-2.2) H 02/29/24 12:49 Calcium 8.4 mg/dL (8.5-10.5) L 02/29/24 12:49 Total Bilirubin 0.5 mg/dL (0.15-1.2) 02/29/24 12:49 AST 20 U/L (0-32) 02/29/24 12:49 ALT 19 U/L (0-33) 02/29/24 12:49 Alkaline Phosphatase 87 U/L (35-105) 02/29/24 12:49 Creatine Kinase 56 U/L (26-192) 02/29/24 12:49 Total Protein 7.1 g/dL (6.6-8.7) 02/29/24 12:49 Albumin 3.9 g/dL (3.5-5.2) 02/29/24 12:49 Globulin 3.2 g/dL (1.3-4.6) 02/29/24 12:49 Lipase 16 U/L (13-60) 02/29/24 12:49 Coronavirus (PCR) Negative (Negative) 02/29/24 13:11 Influenza A (PCR) Negative (Negative) 02/29/24 13:11 Influenza Type B (PCR) Negative (Negative) 02/29/24 13:11 RSV (PCR) Negative (Negative) 02/29/24 13:11 All radiology interpretation(s) finalized by discharge Discharge Plan Discharge Condition: Stable Prescriptions: No Action aspirin 81 mg tablet,delayed release (DR/EC) 81 mg PO .every other day cholecalciferol (vitamin D3) 25 mcg (1,000 unit) capsule 1,000 unit PO DAILY cyanocobalamin (vitamin B-12) 1,000 mcg tablet 1,000 mcg PO DAILY losartan 25 mg tablet 25 mg PO DAILY Qty: 90 3RF clopidogrel 75 mg tablet 75 mg PO DAILY Qty: 90 3RF celecoxib 200 mg capsule 200 mg PO DAILY tizanidine 4 mg tablet 4 mg PO BEDTIME PRN (Reason: Spasms) vitamin B complex Tablet 1 tab PO DAILY coenzyme Q10 [Co Q-10] 30 mg Capsule 30 mg PO DAILY [place] Nasal 0.65 % Aerosol,[place] 1 spray INTRANASAL BID PRN (Reason: allergies) ferrous gluconate 324 mg (38 mg iron) tablet 324 mg PO DAILY atorvastatin 80 mg tablet 80 mg PO BEDTIME loratadine [Claritin] 10 mg Tablet 10 mg PO DAILY PRN (Reason: allergies ) Referrals: Jose Almazan MD [Primary Care Provider] - Coding Level of Care Code ED Relief Mate for [facility] [employer]
--- NOTE | 2024-02-29 12:43 | XRR_ITS ---
PROCEDURE INFORMATION: Exam: XR Chest Exam date and time: 02/29/2024 12:46 PM Age: 88 years old Clinical indication: Cough and dyspnea; Additional info: Dyspnea/cough TECHNIQUE: Imaging protocol: Radiologic exam of the chest. Views: 1 view. COMPARISON: CR (CHEST, ) 02/22/2024 8:29 AM FINDINGS: Lungs: Unremarkable. No consolidation. Pleural spaces: Unremarkable. No pleural effusion. No pneumothorax. Heart/Mediastinum: Aortic valve replacement. Vasculature: Aortic arch calcifications. 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 XR/XR chest 1V portable [id number] IMPRESSION: No acute cardiopulmonary process.
[2024-02-29 12:46] LABS: Basophils # 0.1 10^3/uL (0.0-0.1); Basophils % 0.2 %; Lymphocytes # 1.1 10^3/uL (0.8-4.8); Lymphocytes % 3.4 %; Mean Corpuscular HGB Conc 32.6 g/dL (30-55); Mean Corpuscular Hemoglobin 25.7 pg (27-33); Mean Platelet Volume 9.7 fL (7.4-10.4); Monocytes # 1.9 10^3/uL (0.2-0.9); Monocytes % 5.9 %; Neutrophils # 29.43 10^3/uL (1.8-7.7); Neutrophils % 89.6 %; Nucleated Red Blood Cells % 0 %; Platelet Count 328 10^3/cmm (157-399); Red Blood Count 4.43 10^6/uL (3.85-5.65); Red Cell Distribution Width 15.5 % (12.1-15.1)
[2024-02-29 12:53] LABS: White Blood Count 32.86 10^3/uL (3.29-11.43)
--- NOTE | 2024-02-29 13:01 | CTR_ITS ---
PROCEDURE INFORMATION: Exam: CT Abdomen And Pelvis With Contrast Exam date and time: 02/29/2024 1:30 PM Age: 88 years old Clinical indication: Abdominal pain; Generalized; Additional info: Abd pain TECHNIQUE: Imaging protocol: Computed tomography of the abdomen and pelvis with contrast. Radiation optimization: All CT scans at this facility use at least one of these dose optimization techniques: automated exposure control; mA and/or kV adjustment per patient size (includes targeted exams where dose is matched to clinical indication); or iterative reconstruction. Contrast material: OMNIPAQUE 350; Contrast volume: 100 ml; Contrast route: INTRAVENOUS (IV); COMPARISON: CR (CHEST, ) 02/29/2024 12:46 PM RADIATION DOSE METRICS: Total DLP (mGy-cm): 565.87 FINDINGS: Liver: Normal. No mass. Gallbladder and biliary ducts: Normal. No calcified stones. No ductal dilation. Pancreas: Normal. No ductal dilation. Spleen: The spleen demonstrates punctate calcifications, consistent with remote granulomatous organism exposure. Adrenal glands: Normal. No mass. Kidneys and ureters: Normal. No hydronephrosis. Stomach and bowel: No bowel obstruction. Stomach is normal in appearance. There is mild bowel wall thickening of the distal left colon and mild hyperemia. Appendix: No evidence of appendicitis. Intraperitoneal space: Unremarkable. No free air. No significant fluid collection. Vasculature: Scattered calcified atherosclerotic plaques of the abdominal aorta and iliac arteries without significant stenosis. Lymph nodes: Unremarkable. No enlarged lymph nodes. Urinary bladder: Unremarkable as visualized. Reproductive: Unremarkable as visualized. Bones/joints: Unremarkable. No acute fracture. Soft tissues: Unremarkable. CT/CT abdomen pelvis w con* [id number] IMPRESSION: There is mild bowel wall thickening of the distal left colon and mild hyperemia. Differential diagnosis includes colitis or acute diverticulitis.
[2024-02-29 13:08] LABS: Alanine Aminotransferase 19 U/L (0-33); Albumin Level 3.9 g/dL (3.5-5.2); Alkaline Phosphatase 87 U/L (35-105); Anion Gap 18.9 (5-19); Aspartate Amino Transferase 20 U/L (0-32); Blood Urea Nitrogen 14 mg/dL (8-23); Calcium 8.4 mg/dL (8.5-10.5); Carbon Dioxide 20 mmol/L (22-29); Chloride 93 mmol/L (98-107); Creatine Phosphokinase 56 U/L (26-192); Globulin 3.2 g/dL (1.3-4.6); Glucose 147 mg/dL (65-115); Lipase 16 U/L (13-60); Osmolality Calculated 269 mOsm/kg (285-295); Potassium 3.9 mmol/L (3.5-5.1); Sodium 128 mmol/L (136-145); Total Bilirubin 0.5 mg/dL (0.15-1.2); Total Protein 7.1 g/dL (6.6-8.7)
--- NOTE | 2024-02-29 13:11 | ECG_ITS ---
[facility]: 2024-02-29 Pat Name: Keerthi Wiseman Department: Room: Gender: Female Christian Education Director: : 1935 Requested By: Clay Laughlin Order Number: [id number] Amish MD: Sushila Vernon M.D. Measurements Intervals [place] Rate: 95 P: 52 IN: 186 QRS: -27 QRSD: 98 T: 30 QT: 356 QTc: 449 Interpretive Statements SINUS RHYTHM POSSIBLE LEFT ATRIAL ENLARGEMENT BORDERLINE LEFT AXIS DEVIATION ] POSSIBLE LEFT VENTRICULAR HYPERTROPHY Compared to ECG 09/24/2022 11:17:54 T-wave abnormality no longer present Electronically Signed On 02-29-2024 15:52:53 PARKING ENFORCEMENT MANAGER by Sushila Vernon M.D. [email or web address]
[2024-02-29 13:12] LABS: Lactic Sepsis W/Reflex 2.3 mmol/L (0.5-2.2)
[2024-02-29] MEDS: acetaminophen 325 mg Tablet 650 MG PO (13:12)
[2024-02-29] MEDS: iohexol 350 mg/mL 500 mL Btl (per mL) IV (13:32)
[2024-02-29 13:54] LABS: Covid PCR NEGATIVE (Negative); Influenza A NEGATIVE (Negative); Influenza B NEGATIVE (Negative); Respiratory Syncytial Virus Ce NEGATIVE (Negative)
[2024-02-29] MEDS: cefTRIAXone 2,000 mg SDV 2000 MG IVP (14:01)
[2024-02-29 14:40] LABS: Reflex Lactate Order REFLEX LACTIC ORDERD
[2024-02-29] MEDS: ciprofloxacin 400 MG/200 ML PREMIX 200 MG IV (15:21)
[2024-02-29 16:14] LABS: C.Diff PCR (Lab) POSITIVE (Negative)
--- NOTE | 2024-02-29 16:14 | P.HP_ITS ---
Providers/Chief Complaint 2 Admitting Physician: Sumit Black MD Primary Care Provider: Jose Almazan MD Chief Complaint: fever; diarrhea History of Present Illness Keerthi Wiseman is a 88 year old female with a past medical history of aortic stenosis status TAVR, CAD status post stenting, dyslipidemia, CKD, hyperlipidemia, who presents [facility] for complaints of abdominal pain, poor appetite, feeling nauseous, and diarrhea. Patient was seen on 02/16/2024, was diagnosed with UTI, discharged on cefdinir, who presents to [facility] due to complaints of diarrhea, liquid stool, diffuse abdominal pain, feeling nauseous, poor appetite, reports fevers, Review of Systems 2 Const: Reports: fever(s) Card: Denies: chest pain Resp: Denies: dyspnea GI: Reports: abdominal pain, nausea and excessive flatus Neuro: Denies: headache(s) Medications/Allergies Home Medications Medication Instructions Recorded Confirmed Last Taken Type aspirin 81 mg tablet,delayed 81 mg PO .every other day 09/24/22 02/29/24 04/05/23 History release cholecalciferol (vitamin D3) 25 1,000 unit PO DAILY 09/24/22 02/29/24 02/28/24 History mcg (1,000 unit) capsule cyanocobalamin (vitamin B-12) 1,000 mcg PO DAILY 09/10/23 02/29/24 02/21/24 History 1,000 mcg tablet losartan 25 mg tablet 25 mg PO DAILY #90 tabs 09/10/23 02/29/24 02/29/24 Rx clopidogrel 75 mg tablet 75 mg PO DAILY #90 tabs 12/24/23 02/29/24 02/29/24 Rx atorvastatin 80 mg tablet 80 mg PO BEDTIME 02/22/24 02/29/24 02/29/24 History celecoxib 200 mg capsule 200 mg PO DAILY 02/22/24 02/29/24 02/29/24 History coenzyme Q10 30 mg capsule (Co 30 mg PO DAILY 02/22/24 02/29/24 02/28/24 History Q-10) ferrous gluconate 324 mg (38 mg 324 mg PO DAILY 02/22/24 02/29/24 02/28/24 History iron) tablet sodium chloride 0.65 % nasal spray 1 spray intranasal BID PRN 02/22/24 02/29/24 Unknown History aerosol allergies tizanidine 4 mg tablet 4 mg PO BEDTIME PRN Spasms 02/22/24 02/29/24 02/28/24 History vitamin B complex 1 tab PO DAILY 02/22/24 02/29/24 02/28/24 History loratadine 10 mg tablet (Claritin) 10 mg PO DAILY PRN allergies 02/29/24 02/29/24 Unknown History Allergies Allergy/AdvReac Type Severity Reaction Status Date / Time amlodipine Allergy Mild swelling Verified 09/10/23 15:38 of legs Penicillins Allergy Unknown Verified 09/10/23 15:36 Sulfa (Sulfonamide Allergy Unknown Verified 09/10/23 15:36 Antibiotics) PFSH Acute 2 PFSH: Medical History History of benign ovarian tumor Dyslipidemia Mild aortic regurgitation Systolic murmur Fistula CKD (chronic kidney disease), stage III Osteoporosis Hyperlipemia, mixed Surgical History S/P gastric surgery Family History Mother CAD (coronary artery disease) Father CAD (coronary artery disease) Social History Smoking and tobacco/nicotine status: never used tobacco/nicotine Second hand smoke exposure: No Alcohol intake: never Substance/Drug Use: never Lives independently: Yes Marital status: Current occupational status: retired Current gender identity: Female Vitals/I&O/Wt Last Vital Signs Temp 100.9 F H 02/29/24 12:44 Pulse 90 02/29/24 15:30 Resp 32 H 02/29/24 15:30 BP 129/48 02/29/24 15:30 Pulse Ox 94 02/29/24 15:30 Weight last 48 hrs Weight 72.575 kg Physical Exam 2 Const: COMMON NORMALS: no acute distress and patient oriented x3 HENMT: COMMON NORMALS: normocephalic HEAD & SCALP: normocephalic Resp: COMMON NORMALS: normal respiratory effort, No retractions, No use of accessory muscles and clear to auscultation bilaterally AUSCULTATION: clear to auscultation bilaterally Cardio: COMMON NORMALS: no JVD, regular rate, regular rhythm, S1 normal heart sound present and S2 normal heart sound present RATE: regular rate RHYTHM: regular rhythm HEART SOUNDS: S1 normal heart sound present and S2 normal heart sound present GI: COMMON NORMALS: Soft to palpation OTHER: Patient has bowel sounds in all 4 quadrants, no guarding, no rebound, no rigidity, does have diffuse tenderness, abdomen is distended Extremity: COMMON NORMALS: capillary refill normal, no calf tenderness and no pedal edema Neuro: COMMON NORMALS: patient oriented x3, CN's II-XII intact bilaterally and moves all extremities Psych: COMMON NORMALS: mental status grossly normal Data 02/29/24 11:53 02/29/24 12:49 Micro: Microbiology 02/29/24 12:59 Blood Culture - Preliminary Blood SPECIMEN COLLECTED 02/29/24 12:49 Blood Culture - Preliminary Blood SPECIMEN COLLECTED A&P Assessment and plan (1) C. difficile colitis: (2) Sepsis: (3) VIDAL (acute kidney injury): Plan ct abdomen and pelvis CT/CT abdomen pelvis w con* [id number] IMPRESSION: There is mild bowel wall thickening of the distal left colon and mild hyperemia. Differential diagnosis includes colitis or acute diverticulitis. -cdiff is positive in ER -cdiff colitis with sepsis, sepsis features met wbc 32.86, cr 1.2, NA 128, fever, tachypnea, lactic acid 2.4 plan: -npo -IVF -continue flagyl -PO vancomycin -contact precautions -morphine for pain -zofran for nausea -Lovenox for dvt prophylaxis -full code Attestations 2 Medical Necessity Statement*: patient requires hospitalization for cdiff colitis, inpatient, geater than 2 midnights Diagnoses C. difficile colitis A04.72 Sepsis A41.9 VIDAL (acute kidney injury) N17.9
[2024-02-29] MEDS: metroNIDAZOLE IV 500 MG/100 ML PREMIX 100 MG IV (16:28)
[2024-02-29 16:44] LABS: Procalcitonin 0.28 ng/mL (0-0.5)
[2024-02-29 17:04] LABS: Clostridioides Difficile Toxin POSITIVE (Negative)
[2024-02-29] MEDS: sodium chloride 0.9% 1,000 ML 75 ML IV (18:26)
[2024-02-29] MEDS: pantoprazole 40 mg SDV IVP (18:26)
[2024-02-29 18:42] LABS: C Reactive Protein 52.6 mg/L (0.0-4.9); Cholesterol 170 mg/dL (0-200); HDL Cholesterol 50 mg/dL (60-100); LDL Cholesterol Calculated 104 mg/dL (50-129); LDL HDL Ratio 2.08 RATIO (0.00-3.22); Thyroid Stimulating Hormone 1.73 uIU/mL (0.27-4.20); Triglycerides 79 mg/dL (0-150)
[2024-02-29 18:58] LABS: Estmated Average Glucose 146; Hemoglobin A1C 6.7 % (4.0-6.0)
[2024-02-29] MEDS: vancomycin 125 mg Capsule PO (19:53)
[2024-02-29] MEDS: atorvastatin 40 mg Tablet 80 MG PO (20:24)
[2024-03-01] VITALS (10 sets, daily range): BP systolic 108–157; BP diastolic 53–70; PULSE 80–92; RESP 15–20; TEMP 36.6–37.5; O2SAT 90–97
[2024-03-01] MEDS: metroNIDAZOLE IV 500 MG/100 ML PREMIX 100 MG IV ×3 (00:04→16:44)
[2024-03-01] MEDS: vancomycin 125 mg Capsule PO ×4 (01:07→18:15)
[2024-03-01 03:51] LABS: Basophils # 0.1 10^3/uL (0.0-0.1); Basophils % 0.2 %; Hematocrit 30.8 % (36-47); Lymphocytes # 1.3 10^3/uL (0.8-4.8); Lymphocytes % 5.5 %; Mean Corpuscular HGB Conc 31.5 g/dL (30-55); Mean Corpuscular Hemoglobin 25.5 pg (27-33); Mean Corpuscular Volume 81.1 fl (85-98); Mean Platelet Volume 9.8 fL (7.4-10.4); Monocytes # 1.7 10^3/uL (0.2-0.9); Monocytes % 7.1 %; Neutrophils # 21.08 10^3/uL (1.8-7.7); Neutrophils % 86.5 %; Nucleated Red Blood Cells % 0 %; Platelet Count 231 10^3/cmm (157-399); Red Cell Distribution Width 15.9 % (12.1-15.1); White Blood Count 24.39 10^3/uL (3.29-11.43)
[2024-03-01 04:17] LABS: Alanine Aminotransferase 13 U/L (0-33); Albumin Level 3.1 g/dL (3.5-5.2); Alkaline Phosphatase 67 U/L (35-105); Anion Gap 14.3 (5-19); Aspartate Amino Transferase 14 U/L (0-32); Blood Urea Nitrogen 13 mg/dL (8-23); Calcium 7.3 mg/dL (8.5-10.5); Carbon Dioxide 20 mmol/L (22-29); Chloride 105 mmol/L (98-107); Creatinine Clr Calc Pharmacy 34.2224; Globulin 2.6 g/dL (1.3-4.6); Glucose 122 mg/dL (65-115); Osmolality Calculated 283 mOsm/kg (285-295); Potassium 3.3 mmol/L (3.5-5.1); Sodium 136 mmol/L (136-145); Total Bilirubin 0.5 mg/dL (0.15-1.2); Total Protein 5.7 g/dL (6.6-8.7)
[2024-03-01] MEDS: sodium chloride 0.9% 1,000 ML 75 ML IV (06:07)
[2024-03-01] MEDS: potassium chloride ER 20 mEq Tablet 40 MEQ PO (09:12)
[2024-03-01] MEDS: losartan 50 mg Tablet 25 MG PO (09:13)
[2024-03-01] MEDS: cyanocobalamin 1,000 mcg Tablet 1000 MCG PO (09:13)
[2024-03-01] MEDS: clopidogrel 75 mg Tablet PO (09:13)
--- NOTE | 2024-03-01 14:10 | P.PN_ITS ---
Vitals/I&O/Wt Last Vital Signs Temp 99.5 F 03/01/24 12:00 Pulse 84 03/01/24 12:00 Resp 18 03/01/24 12:00 BP 132/64 03/01/24 12:00 Pulse Ox 94 03/01/24 12:00 O2 Del Method Room Air 03/01/24 12:00 02/29/24 03/01/24 03/01/24 22:59 06:59 14:59 Intake Total 2700 / 2700 976.25 / 3676.25 100 / 100 Output Total Balance 2700 / 2700 976.25 / 3676.25 99 / 99 Weight last 48 hrs Weight 78.29 kg Weight 78.154 kg Weight 72.575 kg Physical Exam 2 Const: COMMON NORMALS: no acute distress and patient oriented x3 Neck/C-Spine: COMMON NORMALS: no JVD Resp: COMMON NORMALS: normal respiratory effort, No retractions, No use of accessory muscles and clear to auscultation bilaterally AUSCULTATION: clear to auscultation bilaterally Cardio: COMMON NORMALS: no JVD, regular rate, regular rhythm, S1 normal heart sound present and S2 normal heart sound present RATE: regular rate RHYTHM: regular rhythm HEART SOUNDS: S1 normal heart sound present and S2 normal heart sound present GI: COMMON NORMALS: Normal to inspection, nondistended, normoactive bowel sounds present and non-tender Extremity: COMMON NORMALS: no pedal edema Neuro: COMMON NORMALS: patient oriented x3 Psych: COMMON NORMALS: mental status grossly normal Data 03/01/24 03:26 03/01/24 03:26 Micro: Microbiology 02/29/24 12:59 Blood Culture - Preliminary Blood NEGATIVE TO DATE 02/29/24 12:49 Blood Culture - Preliminary Blood NEGATIVE TO DATE A&P Assessment and plan (1) C. difficile colitis: (2) Sepsis: (3) VIDAL (acute kidney injury): Plan ct abdomen and pelvis CT/CT abdomen pelvis w con* [id number] IMPRESSION: There is mild bowel wall thickening of the distal left colon and mild hyperemia. Differential diagnosis includes colitis or acute diverticulitis. -cdiff is positive in ER -cdiff colitis with sepsis, sepsis features met wbc 32.86, cr 1.2, NA 128, fever, tachypnea, lactic acid 2.4 plan: -Advance diet -IVF -continue flagyl -PO vancomycin -contact precautions -morphine for pain -zofran for nausea -Lovenox for dvt prophylaxis -full code Plan for today monitor electrolytes continue IV fluids, IV Flagyl, will vancomycin, monitor clinical status Attestations 2 Medical Necessity Statement*: Patient requires hospitalization for C. difficile clearance, VIDAL Diagnoses C. difficile colitis A04.72 Sepsis A41.9 VIDAL (acute kidney injury) N17.9
[2024-03-01] MEDS: atorvastatin 40 mg Tablet 80 MG PO (21:14)
[2024-03-01] MEDS: sodium chloride 0.9% 1,000 ML 50 ML IV (21:45)
--- NOTE | 2024-03-01 23:42 | PC.NURSE ---
Patient handoff report given to Izabel Michael RN at this time
[2024-03-02] VITALS (11 sets, daily range): BP systolic 127–189; BP diastolic 52–78; PULSE 68–85; RESP 16–20; TEMP 36.5–37.1; O2SAT 90–97
[2024-03-02] MEDS: metroNIDAZOLE IV 500 MG/100 ML PREMIX 100 MG IV ×3 (00:05→16:57)
[2024-03-02] MEDS: vancomycin 125 mg Capsule PO ×4 (00:05→18:19)
[2024-03-02 05:50] LABS: Basophils # 0.1 10^3/uL (0.0-0.1); Basophils % 0.3 %; Eosinophils # 0.1 10^3/uL (0.0-0.8); Eosinophils % 0.5 %; Hematocrit 29.2 % (36-47); Lymphocytes # 1.2 10^3/uL (0.8-4.8); Lymphocytes % 6.6 %; Mean Corpuscular HGB Conc 31.8 g/dL (30-55); Mean Corpuscular Hemoglobin 26.2 pg (27-33); Mean Corpuscular Volume 82.3 fl (85-98); Mean Platelet Volume 9.8 fL (7.4-10.4); Monocytes # 0.9 10^3/uL (0.2-0.9); Monocytes % 5.1 %; Neutrophils # 15.39 10^3/uL (1.8-7.7); Neutrophils % 86.9 %; Nucleated Red Blood Cells % 0 %; Platelet Count 212 10^3/cmm (157-399); Red Blood Count 3.55 10^6/uL (3.85-5.65)
[2024-03-02 05:59] LABS: Alanine Aminotransferase 12 U/L (0-33); Albumin Level 2.7 g/dL (3.5-5.2); Alkaline Phosphatase 75 U/L (35-105); Anion Gap 12.2 (5-19); Aspartate Amino Transferase 17 U/L (0-32); Blood Urea Nitrogen 11 mg/dL (8-23); Calcium 7.2 mg/dL (8.5-10.5); Carbon Dioxide 19 mmol/L (22-29); Chloride 108 mmol/L (98-107); Creatinine Clr Calc Pharmacy 46.8747; Globulin 2.5 g/dL (1.3-4.6); Glucose 93 mg/dL (65-115); Osmolality Calculated 281 mOsm/kg (285-295); Potassium 3.2 mmol/L (3.5-5.1); Sodium 136 mmol/L (136-145); Total Bilirubin 0.3 mg/dL (0.15-1.2); Total Protein 5.2 g/dL (6.6-8.7)
[2024-03-02] MEDS: clopidogrel 75 mg Tablet PO (08:15)
[2024-03-02] MEDS: losartan 50 mg Tablet 25 MG PO (08:15)
[2024-03-02] MEDS: cyanocobalamin 1,000 mcg Tablet 1000 MCG PO (08:16)
[2024-03-02] MEDS: pantoprazole DR 40 mg Tablet PO (08:16)
[2024-03-02] MEDS: potassium chloride ER 20 mEq Tablet 40 MEQ PO (08:55)
--- NOTE | 2024-03-02 09:24 | PC.CHAP ---
Pastoral Care Encounter/Spiritual Assessment Type of Contact [] Declined tours hostess visit [] Patient/Family/Request visit [] Outpatient visit [] Follow-up visit [] Physician referral [] Code/Alert [x] Routine visit [] Staff referral [] Actively dying [] Patient sleeping [] Family support [] [] Out of room [] Palliative care [] [] Receiving care in room [] Pre-surgical visit [] Trauma [] Long length of stay [] ICU visit [] Other: Relational/Emotional Strength [] Patient feels connected with others/family/visitors/staff [] Distress [] Loneliness/isolation [] Abandonment Spirituality of Patient [] Person of Gladys [] Attends Alevism of their Gladys [] Believes in Prayer [] Reads Bible or Moravian materials [] There are Spiritual issues to be addressed Gaming Commissioner Interventions [] Prayer [] Active listening [] Non-anxious presence [] Spiritual/emotional support [] Crisis/trauma care [] Spiritual counseling [] Bereavement support [] Provided bereavement packet [] Provided Bible/devotional materials [] Provided toy/stuffed animal, coloring book to patient or family member [] Provided Communion [] Anointing/[place] [] Salvation [] Completed spiritual assessment [] Other: Impact on Illness or Injury [] Angry [] Fearful [] Anxious [] Often cries [] Exhaustion [] Unable to work [] Unable to attend jehovah's witness [] Unable to walk/stand [] Unable to read [] Unable to drive [] Unable to eat/drink [] Unable to sleep [] Unable to be with family [] Patient intubated [] Other: Summary precaution Time spent with patient
--- NOTE | 2024-03-02 14:05 | P.PN_ITS ---
Subjective 2 Subjective: Patient was seen this morning, she is feeling better this morning continues to have episodes of diarrhea but significant improved compared to yesterday she tells me Vitals/I&O/Wt Last Vital Signs Temp 98.2 F 03/02/24 12:00 Pulse 85 03/02/24 12:00 Resp 18 03/02/24 12:00 BP 175/64 03/02/24 12:00 Pulse Ox 97 03/02/24 12:00 O2 Del Method Room Air 03/02/24 12:00 03/01/24 03/02/24 03/02/24 22:59 06:59 14:59 Intake Total 1939. / 2039. 550 / 2590.00 820 / 820 Output Total 350 / 351 Balance 1939. / 2038. 200 / 2239.00 820 / 820 Weight last 48 hrs Weight 77.564 kg Weight 78.29 kg Weight 78.154 kg Physical Exam 2 Const: COMMON NORMALS: no acute distress and patient oriented x3 Resp: COMMON NORMALS: normal respiratory effort, No retractions, No use of accessory muscles and clear to auscultation bilaterally AUSCULTATION: clear to auscultation bilaterally Cardio: COMMON NORMALS: regular rate, regular rhythm, S1 normal heart sound present and S2 normal heart sound present RATE: regular rate RHYTHM: r egular rhythm HEART SOUNDS: S1 normal heart sound present and S2 normal heart sound present GI: COMMON NORMALS: Normal to inspection, nondistended, normoactive bowel sounds present and non-tender Extremity: COMMON NORMALS: no pedal edema Neuro: COMMON NORMALS: patient oriented x3 Psych: COMMON NORMALS: mental status grossly normal Data 03/02/24 04:36 03/02/24 04:36 Micro: Microbiology 02/29/24 12:59 Blood Culture - Preliminary Blood NEGATIVE TO DATE 02/29/24 12:49 Blood Culture - Preliminary Blood NEGATIVE TO DATE A&P Assessment and plan (1) C. difficile colitis: (2) Sepsis: (3) VIDAL (acute kidney injury): Plan ct abdomen and pelvis CT/CT abdomen pelvis w con* [id number] IMPRESSION: There is mild bowel wall thickening of the distal left colon and mild hyperemia. Differential diagnosis includes colitis or acute diverticulitis. -cdiff is positive in ER -cdiff colitis with sepsis, sepsis features met wbc 32.86, cr 1.2, NA 128, fever, tachypnea, lactic acid 2.4 plan: -Advance diet -IVF -continue flagyl -PO vancomycin -contact precautions -morphine for pain -zofran for nausea -Lovenox for dvt prophylaxis -full code Plan for today continue IV Flagyl Attestations 2 Medical Necessity Statement*: Patient requires hospitalization for C. difficile colitis Diagnoses C. difficile colitis A04.72 Sepsis A41.9 VIDAL (acute kidney injury) N17.9
[2024-03-02] MEDS: cloNIDine 0.1 mg Tablet PO (17:16)
--- NOTE | 2024-03-02 18:35 | PC.NURSE ---
Notified Dr. Black of patient blood pressure 183/78. Orders for Clonidine 0.1 mg PO Q12H.
[2024-03-02] MEDS: atorvastatin 40 mg Tablet 80 MG PO (20:36)
[2024-03-03] VITALS (9 sets, daily range): BP systolic 128–173; BP diastolic 71–80; PULSE 68–77; RESP 17–20; TEMP 36.3–36.8; O2SAT 93–96
[2024-03-03] MEDS: metroNIDAZOLE IV 500 MG/100 ML PREMIX 100 MG IV ×2 (00:12→08:27)
[2024-03-03] MEDS: vancomycin 125 mg Capsule PO ×3 (00:12→13:21)
[2024-03-03 05:03] LABS: Basophils % 0.3 %; Eosinophils # 0.2 10^3/uL (0.0-0.8); Eosinophils % 1.5 %; Hematocrit 30.3 % (36-47); Lymphocytes # 1.1 10^3/uL (0.8-4.8); Mean Corpuscular HGB Conc 32.3 g/dL (30-55); Mean Corpuscular Hemoglobin 26.6 pg (27-33); Mean Corpuscular Volume 82.1 fl (85-98); Mean Platelet Volume 9.9 fL (7.4-10.4); Monocytes # 0.7 10^3/uL (0.2-0.9); Neutrophils # 8.09 10^3/uL (1.8-7.7); Neutrophils % 79.7 %; Nucleated Red Blood Cells % 0 %; Platelet Count 242 10^3/cmm (157-399); Red Blood Count 3.69 10^6/uL (3.85-5.65); Red Cell Distribution Width 16.1 % (12.1-15.1); White Blood Count 10.15 10^3/uL (3.29-11.43)
[2024-03-03 05:28] LABS: Slide Review Slide Review Perform
[2024-03-03 05:29] LABS: Alanine Aminotransferase 14 U/L (0-33); Albumin Level 2.8 g/dL (3.5-5.2); Alkaline Phosphatase 77 U/L (35-105); Anion Gap 13.6 (5-19); Aspartate Amino Transferase 21 U/L (0-32); Blood Urea Nitrogen 11 mg/dL (8-23); Calcium 7.7 mg/dL (8.5-10.5); Carbon Dioxide 19 mmol/L (22-29); Chloride 107 mmol/L (98-107); Creatinine Clr Calc Pharmacy 41.5303; Globulin 2.9 g/dL (1.3-4.6); Glucose 143 mg/dL (65-115); Osmolality Calculated 284 mOsm/kg (285-295); Potassium 3.6 mmol/L (3.5-5.1); Sodium 136 mmol/L (136-145); Total Bilirubin 0.2 mg/dL (0.15-1.2); Total Protein 5.7 g/dL (6.6-8.7)
[2024-03-03] MEDS: cloNIDine 0.1 mg Tablet PO (06:11)
[2024-03-03] MEDS: pantoprazole DR 40 mg Tablet PO (08:26)
[2024-03-03] MEDS: clopidogrel 75 mg Tablet PO (08:26)
[2024-03-03] MEDS: cyanocobalamin 1,000 mcg Tablet 1000 MCG PO (08:26)
[2024-03-03] MEDS: losartan 50 mg Tablet 25 MG PO ×2 (08:27→11:32)
--- NOTE | 2024-03-03 09:30 | PC.CHAP ---
Pastoral Care Encounter/Spiritual Assessment Type of Contact [] Declined garment sorter visit [] Patient/Family/Request visit [] Outpatient visit [] Follow-up visit [] Physician referral [] Code/Alert [] Routine visit [] Staff referral [] Actively dying [] Patient sleeping [] Family support [] [] Out of room [] Palliative care [] [] Receiving care in room [] Pre-surgical visit [] Trauma [] Long length of stay [] ICU visit [x] Other:Contact precautions. No visit. Relational/Emotional Strength [] Patient feels connected with others/family/visitors/staff [] Distress [] Loneliness/isolation [] Abandonment Spirituality of Patient [] Person of Gladys [] Attends Spiritism of their Gladys [] Believes in Prayer [] Reads Bible or Jehovah'S Witness materials [] There are Spiritual issues to be addressed [place] Butter Hand Interventions [] Prayer [] Active listening [] Non-anxious presence [] Spiritual/emotional support [] Crisis/trauma care [] Spiritual counseling [] Bereavement support [] Provided bereavement packet [] Provided Bible/devotional materials [] Provided toy/stuffed animal, coloring book to patient or family member [] Provided Communion [] Anointing/[place] [] Salvation [] Completed spiritual assessment [] Other: Impact on Illness or Injury [] Angry [] Fearful [] Anxious [] Often cries [] Exhaustion [] Unable to work [] Unable to attend shinto [] Unable to walk/stand [] Unable to read [] Unable to drive [] Unable to eat/drink [] Unable to sleep [] Unable to be with family [] Patient intubated [] Other: Summary Time spent with patient
--- NOTE | 2024-03-03 10:47 | P.DS_ITS ---
Discharge Providers Date of Admission: 02/29/24 15:03 Date of Discharge: March 03, 2024 Attending Provider at Admission: Sumit Black MD Attending Provider at Discharge: Sumit Black MD Primary Care Provider: Jose Almazan MD Diagnoses at Discharge Discharge Diagnosis (1) C. difficile colitis: Status: Acute (2) Sepsis: Status: Acute (3) VIDAL (acute kidney injury): Status: Acute Reason for Visit Reason for Visit: fever; diarrhea Hospital Course Hospital Course Keerthi Wiseman is a 88 year old female with a past medical history of aortic christiano nosis status TAVR, CAD status post stenting, dyslipidemia, CKD, hyperlipidemia, who presents [facility] for complaints of abdominal pain, poor appetite, feeling nauseous, and diarrhea. Patient was seen on 02/16/2024, was diagnosed with UTI, discharged on cefdinir, who presents to [facility] due to complaints of diarrhea, liquid stool, diffuse abdominal pain, feeling nauseous, poor appetite, reports fevers, Patient was admitted to [facility] for C. difficile colitis, with sepsis, requiring IV fluids, p.o. vancomycin, IV Flagyl, monitored as inpatient, overall patient's clinical status improved, leukocytosis improved, diarrhea resolved. For her C. difficile colitis, given that this is her first reoccurrence, I have discharged her on a pulsed tapered regimen of p.o. vancomycin. Discussed handwashing, to decrease risk of reoccurrence. For hypertension, I have increased her losartan to 50 mg daily, I have also added on clonidine 0.1 twice daily, follow-up with primary care provider as outpatient Type 2 diabetes mellitus A1c 6.7, blood sugars have been reasonable during her hospitalization, discharged on metformin 500 twice daily, with close follow-up with primary care provider as outpatient to check kidney function and liver function. Physical Exam Const: COMMON NORMALS: no acute distress and patient oriented x3 Resp: COMMON NORMALS: normal respiratory effort, No retractions, No use of accessory muscles and clear to auscultation bilaterally AUSCULTATION: clear to auscultation bilaterally Cardio: COMMON NORMALS: regular rate, regular rhythm, S1 normal heart sound present and S2 normal heart sound present RATE: regular rate RHYTHM: regular rhythm HEART SOUNDS: S1 normal heart sound present and S2 normal heart sound present GI: COMMON NORMALS: Normal to inspection, nondistended, normoactive bowel sounds present and non-tender Extremity: COMMON NORMALS: no pedal edema Neuro: COMMON NORMALS: patient oriented x3 Psych: COMMON NORMALS: mental status grossly normal Discharge Data Studies Completed and Pending Completed Studies During Hospitalization Category Date Time Status CT abdomen pelvis w con* [id number] Stat Cat Scan 02/29/24 13:01 Completed XR chest 1V portable [id number] Stat Exams 02/29/24 12:43 Completed Pending at discharge Category Date Time Status Blood Culture Stat Lab 02/29/24 12:59 Results Urinalysis Stat Lab 02/29/24 12:35 Uncollected Radiology Impressions Chest X-Ray 02/29/24 12:43 IMPRESSION: No acute cardiopulmonary process. Abdomen/Pelvis CT 02/29/24 13:01 IMPRESSION: There is mild bowel wall thickening of the distal left colon and mild hyperemia. Differential diagnosis includes colitis or acute diverticulitis. Laboratory Results WBC 10.15 10^3/uL (3.29-11.43) 03/03/24 04:43 RBC 3.69 10^6/uL (3.85-5.65) L 03/03/24 04:43 Hgb 9.80 g/dL (11.27-16.99) L 03/03/24 04:43 Hct 30.3 % (36-47) L 03/03/24 04:43 MCV 82.1 fl (85-98) L 03/03/24 04:43 MCH 26.6 pg (27-33) L 03/03/24 04:43 MCHC 32.3 g/dL (30-55) 03/03/24 04:43 RDW 16.1 % (12.1-15.1) H 03/03/24 04:43 Plt Count 242 10^3/cmm (157-399) 03/03/24 04:43 MPV 9.9 fL (7.4-10.4) 03/03/24 04:43 Neut % (Auto) 79.7 % 03/03/24 04:43 Lymph % (Auto) 11.0 % 03/03/24 04:43 Avery % (Auto) 7.0 % 03/03/24 04:43 Eos % (Auto) 1.5 % 03/03/24 04:43 Baso % (Auto) 0.3 % 03/03/24 04:43 Neut # (Auto) 8.09 10^3/uL (1.8-7.7) H 03/03/24 04:43 Lymph # (Auto) 1.1 10^3/uL (0.8-4.8) 03/03/24 04:43 Avery # (Auto) 0.7 10^3/uL (0.2-0.9) 03/03/24 04:43 Eos # (Auto) 0.2 10^3/uL (0.0-0.8) 03/03/24 04:43 Baso # (Auto) 0.0 10^3/uL (0.0-0.1) 03/03/24 04:43 Nucleated RBC % (auto) 0 % 03/03/24 04:43 Nucleated RBCs # 0.0 /100WBC 03/03/24 04:43 Sodium 136 mmol/L (136-145) 03/03/24 04:43 Potassium 3.6 mmol/L (3.5-5.1) 03/03/24 04:43 Chloride 107 mmol/L (98-107) 03/03/24 04:43 Carbon Dioxide 19 mmol/L (22-29) L 03/03/24 04:43 Anion Gap 13.6 (5-19) 03/03/24 04:43 BUN 11 mg/dL (8-23) 03/03/24 04:43 Creatinine 0.9 mg/dL (0.5-0.9) 03/03/24 04:43 GFR Calculation Not Reportable 03/03/24 04:43 Glucose 143 mg/dL (65-115) H 03/03/24 04:43 Estimat Average Glucose 146 02/29/24 11:53 Hemoglobin A1c 6.7 % (4.0-6.0) H 02/29/24 11:53 Calculated Osmolality 284 mOsm/kg (285-295) L 03/03/24 04:43 Lactic Acid 2.3 mmol/L (0.5-2.2) H 02/29/24 12:49 Lactic Acid (Sepsis) 2.0 mmol/L (0.5-2.2) 02/29/24 15:44 Calcium 7.7 mg/dL (8.5-10.5) L 03/03/24 04:43 Total Bilirubin 0.2 mg/dL (0.15-1.2) 03/03/24 04:43 AST 21 U/L (0-32) 03/03/24 04:43 ALT 14 U/L (0-33) 03/03/24 04:43 Alkaline Phosphatase 77 U/L (35-105) 03/03/24 04:43 Creatine Kinase 56 U/L (26-192) 02/29/24 12:49 C-Reactive Protein 52.6 mg/L (0.0-4.9) H 02/29/24 11:53 Total Protein 5.7 g/dL (6.6-8.7) L 03/03/24 04:43 Albumin 2.8 g/dL (3.5-5.2) L 03/03/24 04:43 Globulin 2.9 g/dL (1.3-4.6) 03/03/24 04:43 Triglycerides 79 mg/dL (0-150) 02/29/24 11:53 Cholesterol 170 mg/dL (0-200) 02/29/24 11:53 LDL Cholesterol, Calc 104 mg/dL (50-129) 02/29/24 11:53 HDL Cholesterol 50 mg/dL (60-100) L 02/29/24 11:53 LDL/HDL Ratio 2.08 RATIO (0.00-3.22) 02/29/24 11:53 Cholesterol/HDL Ratio 3.40 mg/dL (0.0-4.40) 02/29/24 11:53 Lipase 16 U/L (13-60) 02/29/24 12:49 Procalcitonin 0.28 ng/mL (0-0.5) 02/29/24 11:53 TSH 1.73 uIU/mL (0.27-4.20) 02/29/24 11:53 C. difficile (PCR) Positive (Negative) H 02/29/24 13:58 C.difficile Tox Confrm Positive (Negative) H 02/29/24 13:58 Coronavirus (PCR) Negative (Negative) 02/29/24 13:11 Influenza A (PCR) Negative (Negative) 02/29/24 13:11 Influenza Type B (PCR) Negative (Negative) 02/29/24 13:11 RSV (PCR) Negative (Negative) 02/29/24 13:11 Vitals Last Vital Signs Temp 97.4 F L 03/03/24 08:03 Pulse 68 03/03/24 08:03 Resp 17 03/03/24 08:03 BP 165/72 03/03/24 08:27 Pulse Ox 94 03/03/24 08:03 O2 Del Method Room Air 03/03/24 08:03 Discharge Plan Discharge Patient Disposition: Home Condition: Stable Prescriptions: New losartan 50 mg Tablet 50 mg PO DAILY 30 Days Qty: 30 0RF clonidine HCl 0.1 mg Tablet 0.1 mg PO Q12H 30 Days Qty: 60 0RF vancomycin 125 mg Capsule See Rx Instructions .ROUTE .COMPLEX Qty: 56 0RF Rx Instructions: [id number] for 7days, [id number] for 7days, [id number] 7days, [id number] for 14days metformin 500 mg tablet 500 mg PO BID 30 Days Qty: 60 0RF (DME) glucometer testing kit See Rx Instructions .Route .MEDSUPPLY Qty: 1 0RF Rx Instructions: Glucometer testing kit, lancets 100, strips 100 Continued aspirin 81 mg tablet,delayed release (DR/EC) 81 mg PO .every other day cholecalciferol (vitamin D3) 25 mcg (1,000 unit) capsule 1,000 unit PO DAILY cyanocobalamin (vitamin B-12) 1,000 mcg tablet 1,000 mcg PO DAILY clopidogrel 75 mg tablet 75 mg PO DAILY Qty: 90 3RF tizanidine 4 mg tablet 4 mg PO BEDTIME PRN (Reason: Spasms) vitamin B complex Tablet 1 tab PO DAILY coenzyme Q10 [Co Q-10] 30 mg Capsule 30 mg PO DAILY [place] Nasal 0.65 % Aerosol,[place] 1 spray INTRANASAL BID PRN (Reason: allergies) ferrous gluconate 324 mg (38 mg iron) tablet 324 mg PO DAILY atorvastatin 80 mg tablet 80 mg PO BEDTIME loratadine [Claritin] 10 mg Tablet 10 mg PO DAILY PRN (Reason: allergies ) Discontinued losartan 25 mg tablet 25 mg PO DAILY Qty: 90 3RF celecoxib 200 mg capsule 200 mg PO DAILY Discharge Orders: Discharge Order (Routine); Ordered 03/03/24 Ordered By: Sumit Black Referrals: Jose Almazan MD [Primary Care Provider] - Discharge Diet: GI Soft Discharge Activity: Resume usual activity Patient Instructions: Clonidine (By mouth), Losartan (By mouth), Metformin (By mouth), Vancomycin (By mouth), Soft Diet (DC), C. Diff (Clostridioides Difficile) Infection (DC), Opioid Safety Activity Restrictions/Additional Instructions: - See primary care provider in 1 week for blood pressure check -If you feel lightheaded or dizzy stop clonidine 0.1 twice daily -Hydrate well -You have type 2 diabetes mellitus, your A1c 6.7, your blood sugars have been reasonable, please follow-up with primary care provider to monitor your blood sugars, I am going to discharge you on a glucometer, with metformin -Please monitor your blood sugars closely -Monitor your blood sugars 3 times daily as after meals -Please record your blood sugars, and a blood sugar log -If your blood sugar is greater than 500 go to the emergency room -If your blood sugar is less than 60 or at anytime you feel lightheaded or dizzy or diaphoretic or have chest palpitations check your blood sugar, and eat a hard candy or drink orange juice and go immediately to the emergency room -Remember hypoglycemia kills, so if his blood sugar is less than 60 we have to increase it by taking in a sugary meal such as a hard candy or orange juice and go to the emergency room -If you have any questions please call us where here to help Discharge Attestations Time Spent in Discharge Care*: greater than 30 min Quality Metrics Clinical Quality Measures [ No reported AMI, CVA or VTE this stay] Coding Level of Care Code 77050 Total time (in minutes) for Discharge: 45 Diagnoses C. difficile colitis A04.72 Sepsis A41.9 VIDAL (acute kidney injury) N17.9
== END 2024-03-03 14:40 | disposition home or self-care (01) | DRG 872 ==
LOC: ER 16:06 → MEDSURG 16:06
PROVIDERS: Admitting Provider Family Medicine; Emergency Provider Family Medicine; PCP Internal Medicine; Visit Provider Family Medicine
DX: A41.9 Sepsis, unspecified organism (principal); N17.9 Acute kidney failure, unspecified; A04.72 Enterocolitis due to Clostridium difficile, not specified as recurrent; R65.20 Severe sepsis without septic shock; I25.10 Atherosclerotic heart disease of native coronary artery without angina pectoris; E78.2 Mixed hyperlipidemia; E11.22 Type 2 diabetes mellitus with diabetic chronic kidney disease; I12.9 Hypertensive chronic kidney disease with stage 1 through stage 4 chronic kidney disease, or unspecified chronic kidney disease; N18.30 Chronic kidney disease, stage 3 unspecified; M81.0 Age-related osteoporosis without current pathological fracture; Z79.82 Long term (current) use of aspirin; Z79.02 Long term (current) use of antithrombotics/antiplatelets; Z95.5 Presence of coronary angioplasty implant and graft; Z95.2 Presence of prosthetic heart valve; Z87.440 Personal history of urinary (tract) infections; Z88.0 Allergy status to penicillin; Z88.2 Allergy status to sulfonamides; Z82.49 Family history of ischemic heart disease and other diseases of the circulatory system
CPT/HCPCS: 0241U; 36415; 71045; 74177; 80053; 80061; 82550; 83036; 83605; 83690; 84145; 84443; 85025; 86140; 87040; 87324; 87493; 93005; 94664; 96361; 96374; 97161; 99285; J0696; J0744; J2470; J3490; J7030

== ENCOUNTER → 2024-03-17 12:47 | Outpatient (BNVA) | payer MEDICARE, SELFPAY | PROVIDERS: PCP Internal Medicine; Visit Provider Internal Medicine | DX: I35.0 Nonrheumatic aortic (valve) stenosis (principal); E78.5 Hyperlipidemia, unspecified; K21.9 Gastro-esophageal reflux disease without esophagitis; I25.10 Atherosclerotic heart disease of native coronary artery without angina pectoris; N18.30 Chronic kidney disease, stage 3 unspecified | CPT/HCPCS: 99214 ==

== ENCOUNTER → 2024-05-12 15:04 | Outpatient (BNVA) | payer MEDICARE, SELFPAY | PROVIDERS: PCP Internal Medicine; Referring Provider Internal Medicine; Visit Provider Specialist | DX: R20.2 Paresthesia of skin (principal); G56.03 Carpal tunnel syndrome, bilateral upper limbs | CPT/HCPCS: 95911 ==

== ENCOUNTER → 2024-06-25 12:09 | Outpatient (BNVA) | payer MEDICARE, SELFPAY | PROVIDERS: PCP Family Medicine; Visit Provider Family Medicine | DX: I10 Essential (primary) hypertension (principal); D64.9 Anemia, unspecified; R60.0 Localized edema | CPT/HCPCS: 80053; 83880; 85025 ==

== ENCOUNTER → 2024-07-27 08:00 | Outpatient (BNVA) | payer MEDICARE, SELFPAY | PROVIDERS: PCP Family Medicine; Visit Provider Nurse Practitioner Family | DX: L30.0 Nummular dermatitis (principal); L29.89 Other pruritus; F42.4 Excoriation (skin-picking) disorder; D22.0 Melanocytic nevi of lip; L57.8 Other skin changes due to chronic exposure to nonionizing radiation; X32.XXXA Exposure to sunlight, initial encounter; L81.4 Other melanin hyperpigmentation; L82.1 Other seborrheic keratosis; L82.0 Inflamed seborrheic keratosis; L53.8 Other specified erythematous conditions; R58 Hemorrhage, not elsewhere classified; D48.5 Neoplasm of uncertain behavior of skin; L57.0 Actinic keratosis | CPT/HCPCS: 11102; 17000; 17110; 99213 ==

== ENCOUNTER → 2024-09-15 15:26 | Outpatient (BNVA) | payer MEDICARE, SELFPAY | PROVIDERS: PCP Family Medicine; Visit Provider Internal Medicine | DX: I25.10 Atherosclerotic heart disease of native coronary artery without angina pectoris (principal); I35.0 Nonrheumatic aortic (valve) stenosis; N18.30 Chronic kidney disease, stage 3 unspecified; E78.5 Hyperlipidemia, unspecified; K21.9 Gastro-esophageal reflux disease without esophagitis; Z79.02 Long term (current) use of antithrombotics/antiplatelets; Z95.2 Presence of prosthetic heart valve | CPT/HCPCS: 99213 ==

== ENCOUNTER → 2024-09-24 07:41 | Outpatient (BNVA) | payer MEDICARE, SELFPAY | PROVIDERS: PCP Family Medicine; Visit Provider Orthopaedic Surgery | DX: G56.03 Carpal tunnel syndrome, bilateral upper limbs (principal) | CPT/HCPCS: 99204 ==

== ENCOUNTER 2024-12-02 06:03 | Day surgery (SDC) | payer MEDICARE, SELFPAY ==
[2024-12-02] VITALS (7 sets, daily range): BP systolic 140–197; BP diastolic 60–77; PULSE 65–75; RESP 14–18; TEMP 36.2–36.4; O2SAT 97–100; BMI 28.9
--- NOTE | 2024-12-02 06:46 | W.PM.OPSUD ---
Surgery/Procedure H&P Update DATE OF PROCEDURE: December 02, 2024 DATE H&P PERFORMED: 09/24/24 H&P UPDATE INFORMATION: I have reviewed H&P completed within last 30 days, I have examined patient prior to procedure and No changes to prior documentation PREOP DIAGNOSIS: Left carpal tunnel syndrome PLANNED PROCEDURE: Operation Date: 12/02/24 07:50 Proposed Procedures p LEFT Carpal Tunnel Release(Left) - Ozzy Ludwig MD
--- NOTE | 2024-12-02 06:59 | ANES.PREANE2 ---
Pre-Anesthetic Assessment Height/Weight: Height 5 ft 2 in Weight 158 lb Temp Pulse Resp BP Pulse Ox O2 Del Method 97.5 F L 75 16 183/76 98 Room Air 12/02/24 06:21 12/02/24 06:21 12/02/24 06:21 12/02/24 06:21 12/02/24 06:21 12/02/24 06:21 Preop Diagnosis: Left carpal tunnel syndrome Operation Date: 12/02/24 07:50 Proposed Procedures p LEFT Carpal Tunnel Release(Left) - Ozzy Ludwig MD Was Beta Tyree taken within 24 hours: N/A Was Clonidine taken within 24 hours: N/A Last intake: Intake Last Liquid Date 12/01/24 Last Liquid Time 21:30 Last Solid Date 12/01/24 Last Solid Time 21:30 Social No alcohol and No tobacco Exam alert, oriented x 3, clear to auscultation bilaterally and regular rate & rhythm (Systolic ejection flow murmur noted) Airway Submandibular: within normal limits Cervical ROM: within normal limits Mallampati: Class III Dentition: false Anesthetic Plan ASA status: 3 Anesthesia: MAC Other: Patient states that she got very bloated following her heart stents previously, discussed with the patient this is most likely not a complication of anesthesia N.p.o. since yesterday evening S/p TAVR a little over 1 year ago On chronic Plavix, last taken 11/26/2024 GERD, controlled with Protonix Hypertension on losartan CKD stage III Plan for MAC anesthesia with local via surgeon Medications/Allergies Home Medications ?Medication ?Instructions ?Recorded ?Confirmed ?Last Taken ?Type clopidogrel 75 mg tablet 75 mg PO DAILY #90 tabs 12/24/23 12/01/24 11/26/24 Rx atorvastatin 40 mg tablet (Lipitor) 40 mg PO QPM 06/25/24 12/01/24 12/01/24 History cholecalciferol (vitamin D3) 25 25 mcg PO QPM 06/25/24 12/01/24 12/01/24 History mcg (1,000 unit) capsule coenzyme Q10 200 mg/gram oral 200 mg PO QPM 06/25/24 12/01/24 12/01/24 History powder (H2Q CoQ10) ferrous gluconate 324 mg (37.5 mg 324 mg PO QPM 06/25/24 12/01/24 12/01/24 History iron) tablet lactobacillus combination no.4 3 1 cell PO QPM 12/01/24 12/01/24 12/01/24 History billion cell capsule (Probiotic) losartan 50 mg tablet 50 mg PO QPM 12/01/24 12/01/24 12/01/24 History pantoprazole 40 mg tablet,delayed 40 mg PO QPM PRN Indigestion 12/01/24 12/01/24 Unknown History release Allergies Allergy/AdvReac Type Severity Reaction Status Date / Time lisinopril Allergy Intermediate ADR-Cough Verified 12/01/24 11:38 amlodipine Allergy Mild swelling Verified 12/01/24 11:38 of legs Penicillins Allergy Unknown Verified 12/01/24 11:38 Sulfa (Sulfonamide Allergy Unknown Verified 12/01/24 11:38 Antibiotics) Current Medications Generic Name Dose Route Start Last Admin Trade Name Freq PRN Reason Stop Dose Admin Sodium Chloride 1,000 mls @ 30 mls/hr 12/02/24 06:30 12/02/24 06:30 Sodium Chloride 0.9% IV 12/03/24 06:29 30 mls/hr .Q24H SANTANA Administration PFSH Anesthesia Medical History History of benign ovarian tumor Dyslipidemia Mild aortic regurgitation Systolic murmur Fistula CKD (chronic kidney disease), stage III Osteoporosis Hyperlipemia, mixed Surgical History History of transcatheter aortic valve replacement (TAVR) S/P gastric surgery Family History Mother CAD (coronary artery disease) Father CAD (coronary artery disease) Social History Smoking and tobacco/nicotine status: never used tobacco/nicotine Second hand smoke exposure: No Alcohol intake: never Substance/Drug Use: never Lives independently: Yes Marital status: Current occupational status: retired Current gender identity: Female Data Anesthesia Cardiac Studies: Echocardiogram 04/08/23
[2024-12-02] MEDS: ceFAZolin 2,000 mg SDV 2000 MG IVP (07:31)
[2024-12-02] MEDS: BUPivacaine 0.5% INJ 10 mL INJECTION (07:42)
--- NOTE | 2024-12-02 08:29 | PM.OP ---
Operative Report Date of procedure: December 02, 2024 Surgeon: Ozzy Ludwig MD Procedure: Preoperative diagnosis: Left carpal tunnel syndrome Postoperative diagnosis: Same Procedure: Left carpal tunnel release Surgeon: Ozzy Freeman MD Anesthesia: IV sedation with local anesthetic EBL: 5 cc Indications: Keerthi is a 89-year-old white female who presented to the orthopedic clinics with bilateral carpal tunnel syndrome and positive nerve conduction test for this. Clinical exam was consistent with this and therefore having failed all conservative measures patient was offered a carpal tunnel release. She is requesting her left hand done first. All risk benefits treatment alternatives been discussed with her and she is agreeable to this. She understands that it may take updated 17 weeks to determine whether the release is beneficial and that she may have permanent damage already. Procedure: After obtaining her consent patient taken the operating room and while still on [place] [facility] [place] had IV sedation administered. Left upper extremities prepped and draped usual fashion. After surgical timeout Esmarch was used to exsanguinate the left hand and arm and it was used as a tourniquet at mid forearm. Half percent Marcaine plain was injected around the surgical site for anesthetic effect. Subsequently a longitudinal incision was made from the distal flexion crease on the palmar surface of the wrist distally just ulnar to the mid palmar crease. This extended approxione and 1/2 cm. Sharp dissection taken all the way down to subcutaneous tissues and then taking all the way down to the transverse carpal ligament. Transverse carpal ligament was divided with #15 blade along the course of the skin incision. Subsequently using Metzenbaum scissors division of the transverse carpal ligament was completed both proximally and distally in a sharp and blunt fashion. Once released there was some bleeding coming from the area. Pressure was applied to this and it slowed down. Wound was closed with 3-0 nylon running horizontal mattress suture. Further compression was placed on there and then finally the wound was dressed with Xeroform gauze sterile gauze dressing Kerlix wrap and an Rios wrap for compression. Patient was awakened transferred to cover room in stable condition
[2024-12-02] MEDS: HYDROcodone-acetaminophen 5-325 mg Tablet 1 TAB PO (08:37)
--- NOTE | 2024-12-02 09:15 | ANE.PACU2 ---
Inpatient post-anesthesia follow up: Airway intact: Yes Vital signs: Temperature 97.6 F Pulse Rate 67 Respiratory Rate 17 Blood Pressure 168/72 Pulse Oximetry 99 Oxygen Delivery Me thod Room Air Oxygen Flow Rate 6 Fraction of Inspir ed Oxygen Hydration adequate: Yes Nausea and vomiting: No Pain level: 1 Mental status: Baseline
== END 2024-12-02 09:15 | disposition home or self-care (01) ==
PROVIDERS: PCP Family Medicine; Visit Provider Orthopaedic Surgery
PROC: (CPT 64721; principal; 2024-12-02 07:40)
DX: G56.02 Carpal tunnel syndrome, left upper limb (principal); K21.9 Gastro-esophageal reflux disease without esophagitis; I12.9 Hypertensive chronic kidney disease with stage 1 through stage 4 chronic kidney disease, or unspecified chronic kidney disease; N18.30 Chronic kidney disease, stage 3 unspecified; I35.1 Nonrheumatic aortic (valve) insufficiency; E78.2 Mixed hyperlipidemia; R01.1 Cardiac murmur, unspecified; Z95.2 Presence of prosthetic heart valve
CPT/HCPCS: 64721; A4216; J0690; J2371; J2704; J3490; J7030; J9999

== ENCOUNTER 2024-12-04 15:31 | Emergency (ER) | payer MEDICARE, SELFPAY ==
--- OUTSIDE RECORDS SUMMARY | 2024-11-30 08:20 | XMS_ITS ---
Author Organization [facility] Address [address] [place] [address] Care Team Providers Care Hostler Helper Name Role Phone Steven Almazan Primary Care Provider Allergies Allergen (clinical drug ingredient) Drug/Non Drug Allergy documented on EMR Reaction Allergy Type Onset Date Status amlodipine Amlodipine Unknown Drug Allergy Activ e celecoxib Celecoxib Unknown Drug Allergy Active Penicillin Unknown Drug Allergy Active Substance with sulfonamide structure and antibacterial mechanism of action (substance) Sulfa Antibiotics Unknown Drug Allergy Active REASON FOR VISIT SPIDER BITE Medications Medication SIG (Take, Route, Frequency, Duration) Notes Start Date End Date Status Lisinopril 5 MG Tablet 1 tablet Orally Once a day Not-Taking Cefdinir 300 MG Capsule as directed Orally BID Not-Taking Doxycycline Hyclate 100 MG Capsule 1 capsule Orally twice a day Active Ferrous Gluconate 324 (38 Fe) MG Tablet 1 tablet Orally daily; Duration: 90 days 12/02/2023 Not-Taking Vancomycin HCl 125 MG Capsule 1 capsule Orally Once a day Not-Taking Benadryl Allergy 25 MG Tablet 1 tablet at bedtime as needed Orally Once a day Not-Taking Atorvastatin Calcium 40 MG Tablet 1 tablet Orally Once a day; Duration: 90 days Active metroNIDAZOLE 500 MG Tablet 1 tablet Orally Three times a day Not-Taking Nystatin 370706 UNIT/ML Suspension 4 mL Mouth/Throat Four times a day; Duration: 14 days Not-Taking Cefuroxime Axetil 250 MG Tablet 1 tablet Orally every 12 hrs Not-Taking Losartan Potassium 50 mg Tablet TAKE ONE TABLET BY MOUTH ONCE DAILY Orally Daily; Duration: 90 days Active Fluticasone Propionate 50 MCG/ACT Suspension 1 spray in each nostril as needed Nasally Once a day; Duration: 30 days Active Pantoprazole Sodium 40 MG Tablet Delayed Release 1 tablet Orally Once a day; Duration: 90 days 11/20/2023 Active Clopidogrel Bisulfate 75 MG Tablet 1 tablet Orally Once a day; Duration: 90 days Active Fexofenadine HCl 180 MG Tablet 1/2 tablet Swallow whole with water; do not take with fruit juices. Orally Once a day as needed; Duration: 90 days Active Acidophilus 100 MG Capsule as directed Orally Daily; Duration: 90 days Active Sodium Chloride 0.65 % Solution as directed Nasally Daily; Duration: 30 days Active Triamcinolone Acetonide 0.1 % Cream 1 application Externally daily; Duration: 10 days 11/30/2024 Active Coenzyme Q10 30 MG Capsule as directed Orally Once a day Not-Taking Cyanocobalamin 1000 MCG Tablet 1 tablet Orally Once a day Not-Taking Loratadine 10 MG Tablet 1 tablet Orally Once a day Not-Taking Niacin 500 MG Oral Capsule Niacin 500 MG Oral Capsule 07/25/2015 Not-Taking Cholecalciferol 25 MCG (1000 UT) Capsule 1 capsule Orally Once a day Not-Taking Vitamin B Complex - Tablet as directed Orally Not-Takin g Aspirin 81 81 MG Tablet Delayed Release 1 tablet Orally Once a day Not-Taking Furosemide 40 MG Tablet 1 tablet Orally Once a day; Duration: 30 days Not-Taking Social History Tobacco Use: Social History Observation Description Date Details (start date - stop date) Never Smoker NA - NA Social History Tobacco Use: Social Info Question Answer Notes Tobacco Control (Standard) Tobacco use: Nonsmoker Section Notes: Dep - 05/06/24 Tob - 05/06/24 Vital Signs Temperature 97.3 degrees Fahrenheit 12/01/19 25 Blood pressure systolic 140 mm Hg 12/01/19 25 Blood pressure diastolic 72 mm Hg 025 Heart Rate 84 /min 11/30/2024 Height 62 in 11/30/2024 Weight 159 lbs 11/30/2024 BMI 29.08 kg/m2 11/30/2024 Oximetry 97 % 11/30/2024 Height-cm 157.48 cm 11/30/2024 Weight-kg 72.12 kg 11/30/2024 Encounters Encounter Location Date Provider Diagnosis [facility] [address] [place], [place] [id number] 11/30/2024 Steven Almazan Insect bite (nonvenomous) of right shoulder, initial encounter S40.261A and Arthropod bite, initial encounter W57.XXXA Assessments Encounter Date Diagnosis (ICD Code) Assessment Notes Treatment Notes Treatment Clinical Notes Section Notes 11/30/2024 Insect bite (nonvenomous) of right shoulder, initial encounter (ICD-10 - S40.261A) 11/30/2024 Arthropod bite, initial encounter (ICD-10 - W57.XXXA) Plan Of Treatment Medication Medication Name Sig Start Date Stop Date Notes Triamcinolone Acetonide 0.1 % Cream 1 application Externally daily; Duration: 10 days 11/30/2024 Next Appt Details Follow Up: prn, Reason: History and Physical Notes * Examination Category Sub-Category Detail Notes Category Not es Examination GENERAL APPEARANCE: Awake/alert. No appar ent distress SKIN: histaminic reaction in a small arthropod bite on her right shoulder ABDOMEN: Soft, nontender, non distended with active bowel sounds X4. 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 * ROS: G eneral/Constitutional: Patient denies f atigue , fever , night sweats. ? H ematology: Patient denies e asy bruising , bleeding problems , recent transfusion. R espiratory: Patient denies c ough , shortness of breath , wheezing.? C ardiovascular: Patient denies c hest pain , irregular heartbeat , swelling in hands/feet. G astrointestinal: Patient denies a bdominal pain, bloating , constipation , diarrhea , heartburn , blood in stool , nausea , vomiting. G enitourinary: Patient denies p ainful urination , blood in the urine , difficulty urinating. E NT: Patient denies e ar pain , nosebleed, runny nose, s ore throat. M usculoskeletal: Patient denies a rthritis\arthralgia , back pain , joint stiffness , muscle aches. S kin: Patient denies s kin lesion(s) , rash , acne. ? N eurologic: Patient denies d izziness , fainting , headache , memory loss , seizures. P sychiatric: Patient denies a nxiety , depressed mood , difficulty sleeping , suicidal thoughts. p ossible spider bite. 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 * Hospitalization/Major Diagno stic Procedure: 4 childbirths [facility] 02/2024 [facility] 02/2024 Hospitalization Verified. * Family History: F ather: 88 yrs, heart. M other: 98 yrs, heart, diagnosed with Hypertension. F amily History Verified.. * Social History: T obacco Use: T obacco Control (Standard) T obacco use: N onsmoker S ocial History Verified. D ep - 05/06/24 Tob - 05/06/24. * Medications: T akingAcidophilus 100 MG Capsule as directed Orally Daily Sodium Chloride 0.65 % Solution as directed Nasally Daily Clopidogrel Bisulfate 75 MG Tablet 1 tablet Orally Once a day Fexofenadine HCl 180 MG Tablet 1/2 tablet Swallow whole with water; do not take with fruit juices. Orally Once a day as needed Pantoprazole Sodium 40 MG Tablet Delayed Release 1 tablet Orally Once a day Fluticasone Propionate 50 MCG/ACT Suspension 1 spray in each nostril as needed Nasally Once a day Losartan Potassium 50 mg Tablet TAKE ONE TABLET BY MOUTH ONCE DAILY Orally Daily Atorvastatin Calcium 40 MG Tablet 1 tablet Orally Once a day Doxycycline Hyclate 100 MG Capsule 1 capsule Orally twice a day Taking Acidophilus 100 MG Capsule as directed Orally Daily Taking Sodium Chloride 0.65 % Solution as directed Nasally Daily Taking Clopidogrel Bisulfate 75 MG Tablet 1 tablet Orally Once a day Taking Fexofenadine HCl 180 MG Tablet 1/2 tablet Swallow whole with water; do not take with fruit juices. Orally Once a day as needed Taking Pantoprazole Sodium 40 MG Tablet Delayed Release 1 tablet Orally Once a day Taking Fluticasone Propionate 50 MCG/ACT Suspension 1 spray in each nostril as needed Nasally Once a day Taking Losartan Potassium 50 mg Tablet TAKE ONE TABLET BY MOUTH ONCE DAILY Orally Daily Taking Atorvastatin Calcium 40 MG Tablet 1 tablet Orally Once a day Taking Doxycycline Hyclate 100 MG Capsule 1 capsule Orally twice a day Not-TakingBenadryl Allergy 25 MG Tablet 1 tablet at bedtime as needed Orally Once a day Nystatin 924208 UNIT/ML Suspension 4 mL Mouth/Throat Four times a day metroNIDAZOLE 500 MG Tablet 1 tablet Orally Three times a day Cefuroxime Axetil 250 MG Tablet 1 tablet Orally every 12 hrs Vancomycin HCl 125 MG Capsule 1 capsule Orally Once a day Cefdinir 300 MG Capsule as directed Orally BID Ferrous Gluconate 324 (38 Fe) MG Tablet 1 tablet Orally daily Lisinopril 5 MG Tablet 1 tablet Orally Once a day Furosemide 40 MG Tablet 1 tablet Orally Once a day Niacin 500 MG Oral Capsule , Notes to Pharmacist: Niacin 500 MG Oral CapsuleLoratadine 10 MG Tablet 1 tablet Orally Once a day Vitamin B Complex - Tablet as directed Orally Cholecalciferol 25 MCG (1000 UT) Capsule 1 capsule Orally Once a day Aspirin 81 81 MG Tablet Delayed Release 1 tablet Orally Once a day Cyanocobalamin 1000 MCG Tablet 1 tablet Orally Once a day Coenzyme Q10 30 MG Capsule as directed Orally Once a day Medication List reviewed and reconciled with the patientNot-Taking Benadryl Allergy 25 MG Tablet 1 tablet at bedtime as needed Orally Once a day Not-Taking Nystatin 885699 UNIT/ML Suspension 4 mL Mouth/Throat Four times a day Not-Taking metroNIDAZOLE 500 MG Tablet 1 tablet Orally Three times a day Not-Taking Cefuroxime Axetil 250 MG Tablet 1 tablet Orally every 12 hrs Not-Taking Vancomycin HCl 125 MG Capsule 1 capsule Orally Once a day Not-Taking Cefdinir 300 MG Capsule as directed Orally BID Not-Taking Ferrous Gluconate 324 (38 Fe) MG Tablet 1 tablet Orally daily Not-Taking Lisinopril 5 MG Tablet 1 tablet Orally Once a day Not-Taking Furosemide 40 MG Tablet 1 tablet Orally Once a day Not-Taking Niacin 500 MG Oral Capsule , Notes to Pharmacist: Niacin 500 MG Oral CapsuleNot-Taking Loratadine 10 MG Tablet 1 tablet Orally Once a day Not- Taking Vitamin B Complex - Tablet as directed Orally Not-Taking Cholecalciferol 25 MCG (1000 UT) Capsule 1 capsule Orally Once a day Not-Taking Aspirin 81 81 MG Tablet Delayed Release 1 tablet Orally Once a day Not-Taking Cyanocobalamin 1000 MCG Tablet 1 tablet Orally Once a day Not-Taking Coenzyme Q10 30 MG Capsule as directed Orally Once a day Medication List reviewed and reconciled with the patient * Allergies: P enicillinSulfa AntibioticsAmlodipineCelecoxibyesAllergies Verified. Objective: * Vitals: H t: 62 in, Wt:159lbs, Wt-k.12 kg, BMI:29.08Index, Temp:97.3F, BP:140/72mm Hg, HR:84/min, Oxygen sat %:97%, O2 Source: RA, Pain scale: 4 1-10, Ht-cm: 157.48 cm. * Examination: E xamination: GENERAL APPEARANCE: A wake/alert. No apparent distress.? SKIN: h istaminic reaction in a small arthropod bite on her right shoulder. ABDOMEN: S oft, nontender, nondistended with active bowel sounds X4. No HSM or masses. Assessment: * Assessment: 1. I nsect bite (nonvenomous) of right shoulder, initial encounter - S40.261A (Primary) ? 2 . A rthropod bite, initial encounter - W57.XXXA Plan: * Treatment: * Procedure Codes: 3 078F DIAST BP < 80 MM [id number] AMNT PAIN NOTED PAIN [id number] PT currently on statin [id number] MED LIST DOCD IN [id number] RVW MEDS BY RX/DR IN [id number] SYST BP = 140 MM HG6 IT * Follow Up: p rn Billing Information: * Visit Code: 88606 Office Visit, Est Pt., Level 3. * Procedure Codes: 3078F DIAST BP < 80 MM HG. 1125F AMNT PAIN NOTED PAIN PRSNT. [id number] PT currently on statin therapy. 1159F MED LIST DOCD IN RCRD. 1160F RVW MEDS BY RX/DR IN RCRD. 3077F SYST BP = 140 MM HG6 IT. * Sign off status: Completed true * Provider: Anusha Almazan MD Date: 0 11/30/2024 Generated for Thomas miller/Randall/Alfonsoitting on: 0 12/04/2024 03:37 PM CDT
--- OUTSIDE RECORDS SUMMARY | 2024-12-04 15:37 | XMS_ITS | Encounter Summary ---
Author Organization [facility] Address [address] [place] [address] Care Team Providers Care Sampler Ovens Name Role Phone Unavailable Primary Care Provider Unavailabl e Reason for Visit * Reason Onset Date Comments Appt Questions 06/15/2024 Encounter Details Date Type Department Care Team (Late st Contact Info) Description 06/15/2024 Telephone [facility] [address] [facility] [address] [place] [phone] [facility] [address] [facility] [address] [place] [phone] Appt Questions Social History Tobacco Use Types Packs/Day Years Used Date Smoking Tobacco: Never Comments No Sex and Gender Information Value Date Recorded Sex Assigned at Not on file Legal Sex Female 10:37 AM 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 States she recently seenby primary sample mounter Dr. Francis in [place]. Requests to cancel appointments for 1 year TAVRfollow up. Left message at Dr. Billy office to request records. Also faxed request. D CONTACT PERSON * Telephone Encounter - Brigitte Shearer - 06/15/2024 4:24 PM CST Chivo Caller: Keerthi - [phone] Message: patient has an echo tomorrow and then see's Ms. Waldron the following day. Patient lives a good distance out and is wondering if these appts can be made in the same day? D CONTACT PERSON documented in this encounter Plan of Treatment Not on file documented as of this encounter Visit Diagnoses Not on filedocumented in this encounter
--- OUTSIDE RECORDS SUMMARY | 2024-12-04 15:37 | XMS_ITS | Encounter Summary ---
Author Organization [facility] Address 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
--- OUTSIDE RECORDS SUMMARY | 2024-12-04 15:37 | XMS_ITS | Clinical Summary ---
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 Active coenzyme Q10 100 mg Capsule 1 cap(s) orally once a day Active fluticasone propionate (FLONASE) 50 mcg/spray [place], Suspension nasal inhaler instill 2 sprays into each nostril once daily 03/27/2023 Active clopidogreL (PLAVIX) 75 mg Tablet Take 1 Tablet by mouth daily. 04/10/2023 Active aspirin (RACHANA CHEWABLE) 81 mg Tablet, Chewable 1 tab(s) orally once a day Active cholecalciferol , Vitamin D3, (VITAMIN D3) 25 mcg (1,000 unit) Capsule Take by mouth daily. Active CYANOCOBALAMIN, VITAMIN B-12, ORAL Take by mouth. Active furosemide (Lasix) 20 mg tablet Take 1 Tablet (20 mg) by mouth daily. 30 Tablet 1 07/23/2023 Active lisinopriL (PRINIVIL) 5 mg tablet Take 1 Tablet (5 mg) by mouth daily. 30 Tablet 3 07/23/2023 Active Active Problems Problem Noted Date Diagnosed Date S/P TAVR (transcatheter aortic valve replacement ) 06/20/2023 Left bundle branch block 06/20/2023 Overview (06/20/2023): Intermittent post TAVR Essential hypertension 06/19/2023 Severe aortic stenosis 06/19/2023 ASHD (arteriosclerotic heart disease) 06/19/2023 S/P drug eluting coronary stent placement 2023 Overview (06/19/2023): RCA Stage 3a chronic kidney disease 06/19/2023 Hyperlipidemia 06/19/2023 Anemia 06/19/2023 Chronic diastolic heart failure due to valvular disease 06/19/2023 Overview (06/19/2023): NYHA class III Abnormal finding on urinalysis 06/19/2023 Encounters Date Type Department Care Team Description 12/01/2024 External Device Data [facility] ABSTRACTION Provider, Abstract 11/04/2024 External Device Data [facility] ABSTRACTION Provider, Abstract 11/03/2024 External Device Data [facility] ABSTRACTION Provider, Abstract 10/06/2024 External Device Data [facility] ABSTRACTION Provider, Abstract 09/15/2024 External Device Data [facility] ABSTRACTION Provider, Abstract 09/09/2024 External Device Data [facility] ABSTRACTION Provider, Abstract 09/08/2024 External Device Data [facility] ABSTRACTION Provider, Abstract from Last 3 Months Social History Tobacco Use Types Packs/Day Years Used Date Smoking Tobacco: Never Tobacco Cessation:Counseling Given: Not Answered Comments No Sex and Gender Information Value Date Recorded Sex Assigned at Not on file Legal Sex Female 10:37 AM 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 Gender Identity Not on file Sexual Orientation Not on file Last Filed Vital Signs Vital Sign Reading Time Taken Comments Blood Pressure 156/60 07/23/2023 2:39 PM CDT Pulse 84 07/23/2023 2:28 PM CDT Temperature 36.8 C (98.2 F) 06/20/2023 11:05 AM MANAGER BRIDGE Respiratory Rate 20 06/20/2023 11:05 AM MANAGER BRIDGE Oxygen Saturation 95% 06/20/2023 11:05 AM MANAGER BRIDGE Inhaled Oxygen Concentration - - Weight 74.9 kg (165 lb 3.2 oz) 07/23/2023 2:28 P M CDT Height 157.5 cm (5' 2 ) 07/23/2023 2:28 PM CDT Body Mass Index 30.22 07/23/2023 2:28 PM CDT Plan of Treatment Health Maintenance Due Date Last Done Comments PNEUMOCOCCAL VACCINE 50+ YEA RS (1 of 2 - PCV) 1954 ZOSTER VACCINE (1 of 2) 1985 OSTEOPOROSIS SCREENING 2000 RSV VACCINE (60+ or ) (1 - 1-dose 75+ series) 2010 COVID-19 Vaccine (2023-2 5 season) 2024 02/06/2024, 01/14/2023, 01/16/2022, Additional history exists INFLUENZA VACCINE (#1) 2024 01/14/2023, 2020 DTAP/TDAP/TD VACCINES (2 - T d or Tdap) 11/22/2033 11/23/2023 Medical Devices Implanted Type Area Site Supervising Technical Operator Device Identifier Shelf Expiration Date Model / Serial / Lot Closure Perclose Prostyle Sut Mediate [id number] - [id number] Implanted:Qty: 1 on 06/19/2023 by Charlie Edward MD at [facility] Closure Device Right: Groin SHAW- VASC DEVICE 03/21/2025 [id number] / / [id number] Closure Perclose Prostyle Sut Mediate 93482-20 - [id number] Implanted:Qty: 1 on 06/19/2023 by Charlie Edward MD at [facility] Closure Device Right: Groin SHAW- VASC DEVICE 04/21/2025 [id number] / / [id number] Closure Angioseal 6fr Vip [id number] - [id number] Implanted:Qty: 1 on 06/19/2023 by Charlie Edward MD at [facility] Closure Device Left: Groin SHAW [employer] 02/21/2024 [id number] / / [id number] Dlvry Sys Evolut Fx 23-29mm [id number] - [id number] Implanted:Qty: 1 on 06/19/2023 by Charlie Edward MD at [facility] Valve N/A: Heart [employer]- HEART VALVE 02/20/2025 D-EVOLUTF [id number] / [id number] / [id number] Vlv Aort Evolut Fx Tavr 29mm Evolutfx-29 - [id number] Implanted:Qty: 1 on 06/19/2023 at [facility] Valve Aorta [employer]- HEART VALVE 04/07/2025 EVOLUTFX- 29 / [id number] / Insurance [facility] Advance Directives For more information, please contact: [phone] * Full Code (Latest Code Status on File) Date Activated Date Inactivated Comments 06/19/2023 6:00 AM 06/20/2023 5:30 PM
--- OUTSIDE RECORDS SUMMARY | 2024-12-04 15:37 | XMS_ITS | Patient Health Record ---
Author Organization [facility] Address [address] [place] [address] Care Team Providers Care Sap Bods Developer Name Role Phone Steven Almazan Primary Care Provider [phone] Allergies Allergen (clinical drug ingredient) Drug/Non Drug Allergy documented on EMR Reaction Allergy Type Onset Date Status amlodipine Amlodipine Unknown Drug Allergy Activ e celecoxib Celecoxib Unknown Drug Allergy Active Penicillin Unknown Drug Allergy Active Substance with sulfonamide structure and antibacterial mechanism of action (substance) Sulfa Antibiotics Unknown Drug Allergy Active Results Component Value Reference Range Notes % Iron Saturation (Fe & TIBC )--52455,54679 Reviewed date:01/20/2024 01:26:48 PM Interpretation: Performing Lab: Notes/Report: Diagnosis Description: Iron deficiency Iron 78 50-170 MCG/DL Per Iron assay instruction for Use(IFU), patients treated with metal-binding drugs (e.g.deferoxamine) may have depressed iron values as chelated iron may not properly react in the iron assay. Testing was performed with this assay method. TIBC 347 250-450 NG/DL % Iron Saturation 22 20-50 % Reason For Referral Reason EVAL AND TREAT Diagnosis 1 Bilateral carpal sam shavonne syndrome (G56.03) Referral Organization [facility] Referring Provider First Name Leonel de leon Referring Provider Last Name Tha Referring Provider Speciality Internal M edicine Referred Provider Grady Khan Referred Provider Specialty Orthopedic S urgery General Notes Anne-Marie Albrecht 025 01:30:00 PM >FAXED TO [facility]idi 10/07/2024 10:53:50 AM >UNABLE TO GET AHOLD OF OFFICE, Natasha Rivera 10/14/2024 09:45:49 AM >Pt had an appt on 09/24/[address] Ozzy Ludwig. Megan in medical records is going to fax office notes., [facility]roc[facility] Anne-Marie 10/14/2024 01:07:17 PM >PROGRESS NOTES IN REFERRAL FILE Referral Priority Routine Referral Appointment Date 09/24/2024 Medications Medication SIG (Take, Route, Frequency, Duration) Notes Start Date End Date Status Clopidogrel Bisulfate 75 MG Tablet 1 tablet Orally Once a day; Duration: 90 days Active Cholecalciferol 25 MCG (1000 UT) Capsule 1 capsule Orally Once a day Not-Taking Vitamin B Complex - Tablet as directed Orally Not-Takin g Fexofenadine HCl 180 MG Tablet 1/2 tablet Swallow whole with water; do not take with fruit juices. Orally Once a day as needed; Duration: 90 days Active Aspirin 81 81 MG Tablet Delayed Release 1 tablet Orally Once a day Not-Taking Losartan Potassium 50 mg Tablet TAKE ONE TABLET BY MOUTH ONCE DAILY Orally Daily; Duration: 90 days Active Fluticasone Propionate 50 MCG/ACT Suspension 1 spray in each nostril as needed Nasally Once a day; Duration: 30 days Active Benadryl Allergy 25 MG Tablet 1 tablet at bedtime as needed Orally Once a day Not-Taking Atorvastatin Calcium 40 MG Tablet 1 tablet Orally Once a day; Duration: 90 days Active Triamcinolone Acetonide 0.1 % Cream 1 application Externally daily; Duration: 10 days 11/30/2024 Active Coenzyme Q10 30 MG Capsule as directed Orally Once a day Not-Taking Cyanocobalamin 1000 MCG Tablet 1 tablet Orally Once a day Not-Taking Pantoprazole Sodium 40 MG Tablet Delayed Release 1 tablet Orally Once a day; Duration: 90 days 11/20/2023 Active metroNIDAZOLE 500 MG Tablet 1 tablet Orally Three times a day Not-Taking Nystatin 658109 UNIT/ML Suspension 4 mL Mouth/Throat Four times a day; Duration: 14 days Not-Taking Vancomycin HCl 125 MG Capsule 1 capsule Orally Once a day Not-Taking Cefuroxime Axetil 250 MG Tablet 1 tablet Orally every 12 hrs Not-Taking Acidophilus 100 MG Capsule as directed Orally Daily; Duration: 90 days Active Furosemide 40 MG Tablet 1 tablet Orally Once a day; Duration: 30 days Not-Taking Lisinopril 5 MG Tablet 1 tablet Orally Once a day Not-Taking Sodium Chloride 0.65 % Solution as directed Nasally Daily; Duration: 30 days Active Loratadine 10 MG Tablet 1 tablet Orally Once a day Not-Taking Niacin 500 MG Oral Capsule Niacin 500 MG Oral Capsule 07/25/2015 Not-Taking Cefdinir 300 MG Capsule as directed Orally BID Not-Taking Doxycycline Hyclate 100 MG Capsule 1 capsule Orally twice a day Active Ferrous Gluconate 324 (38 Fe) MG Tablet 1 tablet Orally daily; Duration: 90 days 12/02/2023 Not-Taking Social History Tobacco Use: Social History Observation Description Date Details (start date - stop date) Never Smoker NA - NA Social History Depression Screening Social Info Question Answer Notes depression screening findings Findings Negative (0 -4) PHQ-9 Little interest or p frances in doing things Not at all Feeling down, depressed, or hopeless Not at all Trouble falling or staying asleep, or sleeping t oo much Not at all Feeling tired or having little energy Not at all Poor appetite or overeating Not at all Feeling bad about yourself, or that you are a failure, or have let yourself or your family down Not at all Trouble concentrating on thi ngs, such as reading the newspaper or watching television Not at all Moving or speaking so slowly that other people could have noticed. Or the opposite ? being so fidgety or restless that you have been moving around a lot more than usual Not at all Thoughts that you would be b raman off , or of hurting yourself in some way Not at all Total Score 0 Drugs/Alcohol: Social Info Question Answer Notes Drugs Have you used drugs other than those for medical reasons in the past 12 months? No Drug/Alcohol: Social Info Question Answer Notes AUDIT-C (Standard) Did you have a drink containing alcohol in the past year? No Points 0 Interpretation Negative Tobacco Use: Social Info Question Answer Notes Tobacco Control (Standard) Tobacco use: Nonsmoker Additional Details Category Social Info Options Details zzMigrated Social History Migrated Social History Smoking Status:Never smoked tobacco (finding) Section Notes: Dep - 05/06/24 Tob - 05/06/24 Dep - 05/06/24 Tob - 05/06/24 Dep - 05/06/24 Tob - 05/06/24 Problems Problem Type SNOMED Code ICD Code Onset Dates Problem Status W/U Status Risk Notes Problem Iron deficiency (42476680) Iron deficiency (E61.1) Active confirmed Problem Essential hypertension (91653736) Essential (primary) hypertension (I10) Active confirmed Problem Anesthesia of skin (614658040) Anesthesia of skin (R20.0) Active confirmed Problem Paresthesia (finding) (74207158) Paresthesia of skin (R20.2) Active confirmed Problem Coronary arteriosclerosis (disorder) (37239160) CAD in [place] artery (I25.10) Active confirmed Problem Bilateral carpal tunnel syndrome (28964592668711325) Bilateral carpal tunnel syndrome (G56.03) Active confirmed Problem Edema (214120336) Lower extremit y edema (R60.0) Active confirmed Problem Neck pain (81298739) Neck pain, acute (M54.2) Active confirmed Problem Iron deficiency anemia (07000376) Chronic iron deficiency anemia (D50.9) Active confirmed Problem Gastroduodenitis (743976050) Gastritis, presence of bleeding unspecified, unspecified chronicity, unspecified gastritis type (K29.70) Active confirmed Problem History of heart valve repair with prosthesis (741905835672771) 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) Active confirmed Vital Signs Heart Rate 84 /min 11/30/2024 Temperature 97.3 degrees Fahrenheit 11/30/2024 Height-cm 157.48 cm 11/30/2024 Blood pressure diastolic 72 mm Hg 11/30/2024 Oximetry 97 % 11/30/2024 Weight-kg 72.12 kg 11/30/2024 Height 62 in 11/30/2024 Blood pressure systolic 140 mm Hg 11/30/2024 Weight 159 lbs 11/30/2024 BMI 29.08 kg/m2 11/30/2024 Encounters Encounter Location Date Provider Diagnosis [facility] [address] [place] [phone] 01/09/2024 Steven Almazan Iron deficiency E61.1 ; Chronic iron deficiency anemia D50.9 ; Gastritis, presence of bleeding unspecified, unspecified chronicity, unspecified gastritis type K29.70 and Depression screen Z13.31 [facility] [address] [place] [phone] 02/20/2024 Steven Almazan Neck pain, acute M54.2 [facility] [address] [phone] 03/03/2024 Steven Almazan Neck pain, acute M54.2 ; CAD in [place] artery I25.10 and Essential (primary) hypertension I10 [facility] [address] [address] 03/05/2024 Steven Almazan Thrush, oral B37.0 [facility] [address] [address] 03/11/2024 Steven Almazan CAD in [place] artery I25.10 and Iron deficiency E61.1 [facility] [address] [phone] 03/24/2024 Steven Almazan Non-recurrent acute serous otitis media of right ear H65.01 and Depression screen Z13.31 [facility] [address] [address] 05/06/2024 Steven Almazan CAD in [place] artery I25.10 ; S/P TAVR (transcatheter aortic valve replacement) Z95.2 ; Essential (primary) hypertension I10 ; Gastritis, presence of bleeding unspecified, unspecified chronicity, unspecified gastritis type K29.70 and Depression screen Z13.31 [facility] [address] [address] 06/15/2024 Steven Almazan Encounter for Medicare annual wellness exam Z00.00 ; CAD in [place] artery I25.10 ; Lower extremity edema R60.0 ; Essential (primary) hypertension I10 and Advanced care planning/counseling discussion Z71.89 [facility] [address] [address] 11/30/2024 Steven Almazan Insect bite (nonvenomous) of right shoulder, initial encounter S40.261A and Arthropod bite, initial encounter W57.XXXA [facility] [address] [place] [address] 02/28/2024 Steven Almazan [facility] [address] [place] [phone] 03/30/2024 Steven Almazan Assessments Encounter Date Diagnosis (ICD Code) Assessment Notes Treatment Notes Treatment Clinical Notes Section Notes 01/09/2024 Iron deficiency (ICD-10 - E61.1) 02/20/2024 Neck pain, acute (ICD-10 - M54.2) 03/03/2024 Neck pain, acute (ICD-10 - M54.2) 03/03/2024 CAD in [place] artery (ICD-10 - I25.10) 03/05/2024 Thrush, oral (ICD-10 - B37.0) 03/11/2024 CAD in [place] artery (ICD-10 - I25.10) 03/24/2024 Non-recurrent acute serous otitis media of right ear (ICD-10 - H65.01) 05/06/2024 CAD in [place] artery (ICD-10 - I25.10) 06/15/2024 Encounter for Medicare annual wellness exam (ICD-10 - Z00.00) Please schedule your next AWV in 1 year. 06/15/2024 CAD in [place] artery (ICD-10 - I25.10) 11/30/2024 Insect bite (nonvenomous) of right shoulder, initial encounter (ICD-10 - S40.261A) 11/30/2024 Arthropod bite, initial encounter (ICD-10 - W57.XXXA) 06/15/2024 Lower extremity edema (ICD-10 - R60.0) 05/06/2024 S/P TAVR (transcatheter aortic valve replacement) (ICD-10 - Z95.2) 03/24/2024 Depression screen (ICD-10 - Z13.31) 03/11/2024 Iron deficiency (ICD-10 - E61.1) 03/03/2024 Essential (primary) hypertension (ICD-10 - I10) 01/09/2024 Chronic iron deficiency anemia (ICD-10 - D50.9) 01/09/2024 Gastritis, presence of bleeding unspecified, unspecified chronicity, unspecified gastritis type (ICD-10 - K29.70) 05/06/2024 Essential (primary) hypertension (ICD-10 - I10) 06/15/2024 Essential (primary) hypertension (ICD-10 - I10) 06/15/2024 Advanced care planning/counseling program leader ing discussion (ICD-10 - Z71.89) Discussed Advance Care Planning. Patient does not have an advance care plan or surrogate decision maker in place. Encouraged patient to consider options, provided with resources to help make decisions regarding advance care options. Discussed Advance Care Planning. Patient has an advance care plan or surrogate decision maker in place. A copy of pertinent documents have been requested or exist in the chart currently, 05/06/2024 Gastritis, presence of bleeding unspecified, unspecified chronicity, unspecified gastritis type (ICD-10 - K29.70) 01/09/2024 Depression screen (ICD-10 - Z13.31) 05/06/2024 Depression screen (ICD-10 - Z13.31) 01/09/2024 Other Venipuncture performed by Veronica Jones. Left arm/hand. One attempt. Pt tolerated well, bleeding controlled with light dressing. Lab sent to [facility] via slot ambassador. 03/11/2024 Other continue current treatment Plan Of Treatment No Information Insurance Providers Payer Name Payer Address Payer Phone Subscriber Number Group Number Insured Name Patient Relationship to Insured Coverage Start Date Coverage End Date [employer] Medicare Replacement [address] [place] [address] [id number] Keerthi Wiseman Self - patient is the insured Medications Administered Medication Instructions Date of Administration Dosage Notes dexAMETHasone 02/20/2024 10 mg Ketorolac Tromethamine 02/20/2024 30 mg Medical (General) History Medical History History ICD Code Problem:Chronic kidney disease stage 3 ( disorder) , Status :: Active Problem:Hyperlipidemia (disorder) , Stat us :: Active Surgical History Surgery Date(Month/Year) 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 02/2024 4 childbirths [facility] 02/2024
[2024-12-04 16:26] VITALS: BP 196/78; PULSE 73; RESP 16; TEMP 36.6; O2SAT 100
--- NOTE | 2024-12-04 18:47 | W.ED.EXTPRO ---
HPI - Extremity Problem General: Chief complaint: Extremity Injury, Upper Stated complaint: wrap too tight and hand cold to the touch Time Seen by Provider: 12/04/24 18:40 Source: patient Mode of arrival: ambulatory Limitations: no limitations History of Present Illness: 89-year-old female who states she had carpal tunnel surgery on her left wrist on Saturday states that she feels like her wrap is too tight is having some bruising to her fingers and some slight pain 1 to have her wound checked. She denies any fevers she has full range of motion of her fingers. Associated symptoms: Deny chest pain, fever(s) or rash Related Data Home Medications ?Medication ?Instructions ?Recorded ?Confirmed atorvastatin 40 mg tablet (Lipitor) 40 mg PO QPM 06/25/24 12/01/24 cholecalciferol (vitamin D3) 25 25 mcg PO QPM 06/25/24 12/01/24 mcg (1,000 unit) capsule coenzyme Q10 200 mg/gram oral 200 mg PO QPM 06/25/24 12/01/24 powder (H2Q CoQ10) ferrous gluconate 324 mg (37.5 mg 324 mg PO QPM 06/25/24 12/01/24 iron) tablet lactobacillus combination no.4 3 1 cell PO QPM 12/01/24 12/01/24 billion cell capsule (Probiotic) losartan 50 mg tablet 50 mg PO QPM 12/01/24 12/01/24 pantoprazole 40 mg tablet,delayed 40 mg PO QPM PRN Indigestion 12/01/24 12/01/24 release Previous Rx's ?Medication ?Instructions ?Recorded clopidogrel 75 mg tablet 75 mg PO DAILY #90 tabs 12/24/23 hydrocodone 5 mg-acetaminophen 325 1 tab PO Q6H PRN pain #30 tabs 12/02/24 mg tablet Allergies Allergy/AdvReac Type Severity Reaction Status Date / Time lisinopril Allergy Intermediate ADR-Cough Verified 12/01/24 11:38 amlodipine Allergy Mild swelling Verified 12/01/24 11:38 of legs Penicillins Allergy Unknown Verified 12/01/24 11:38 Sulfa (Sulfonamide Allergy Unknown Verified 12/01/24 11:38 Antibiotics) Review of Systems Const: Denies: fever(s), chills, body aches or change in appetite ENMT: Denies: throat pain or dental pain Card: Denies: chest pain Resp: Denies: dyspnea GI: Denies: abdominal pain, nausea, vomiting or diarrhea Musc: Reports: extremity pain; Denies: neck pain or back pain Skin/Breast: Denies: rash Neuro: Denies: headache(s) PFSH ED PFSH: Medical History History of benign ovarian tumor Dyslipidemia Mild aortic regurgitation Systolic murmur Fistula CKD (chronic kidney disease), stage III Osteoporosis Hyperlipemia, mixed Surgical History History of transcatheter aortic valve replacement (TAVR) S/P gastric surgery Family History Mother CAD (coronary artery disease) Father CAD (coronary artery disease) Social History Smoking and tobacco/nicotine status: never used tobacco/nicotine Second hand smoke exposure: No Alcohol intake: never Substance/Drug Use: never Lives independently: Yes Marital status: Current occupational status: retired Current gender identity: Female Physical Exam Const: COMMON NORMALS: no acute distress, patient oriented x3 and healthy appearing HENMT: COMMON NORMALS: normocephalic and atraumatic HEAD & SCALP: normocephalic and atraumatic Eye: COMMON NORMALS: conjunctivae normal CONJUNCTIVA: Yes conjunctivae normal Neck/C-Spine: COMMON NORMALS: full ROM and supple Chest: COMMONS NORMALS: normal inspection of the chest Resp: COMMON NORMALS: normal respiratory effort Cardio: COMMON NORMALS: regular rate RATE: regular rate Extremity: OTHER: Takedown dressing incisions clean dry intact no signs of compartment syndrome cap refill normal Neuro: COMMON NORMALS: patient oriented x3, moves all extremities and no focal motor deficits Psych: COMMON NORMALS: mental status grossly normal, Normal thought process present and cooperative THOUGHT PROCESS: Normal thought process present Skin: COMMON NORMALS: no rashes or lesions noted GENERAL SKIN EXAM: no rashes or lesions noted Course Vital Signs: Vital signs: Vital Signs Temperature 97.9 F 12/04/24 16:26 Pulse Rate 73 12/04/24 16:26 Respiratory Rate 16 12/04/24 16:26 Blood Pressure 196/78 12/04/24 16:26 Pulse Oximetry 100 12/04/24 16:26 Oxygen Delivery Me thod Room Air 12/04/24 16:26 MDM - Extremity (Nontraumatic) Medical Decision Making Patient presents here for a wound check she is well-appearing here incisions clean dry and intact did redress her wound she is follow-up with orthopedist return if worsening. Medical Records I reviewed the patient's medical records. No radiology studies performed this visit Discharge Plan Discharge Patient Disposition: Home Clinical Impression: Visit for wound check Condition: Stable Prescriptions: No Action cholecalciferol (vitamin D3) 25 mcg (1,000 unit) capsule 25 mcg PO QPM H2Q CoQ10 200 mg/gram powder 200 mg PO QPM atorvastatin [Lipitor] 40 mg tablet 40 mg PO QPM ferrous gluconate 324 mg (37.5 mg iron) tablet 324 mg PO QPM clopidogrel 75 mg tablet 75 mg PO DAILY Qty: 90 3RF Probiotic 3 billion cell Capsule 1 cell PO QPM losartan 50 mg tablet 50 mg PO QPM Rx Instructions: Take 50mg (1 tab) daily If systolic blood pressure 150 or above to take 1.5 pills (75 mg of losartan) pantoprazole 40 mg Tablet,Delayed Release (Dr/Ec) 40 mg PO QPM PRN (Reason: Indigestion) hydrocodone-acetaminophen 5-325 mg tablet 1 tab PO Q6H PRN (Reason: pain) Qty: 30 0RF Discharge Orders: Discharge ED (Routine); Ordered 12/04/24 Ordered By: Fabian Egan Referrals: Maria Eugenia Obregon MD [Primary Care Provider, [facility]] Discharge Diet: Advance as tolerated Discharge Activity: Resume usual activity Patient Instructions: Carpal Tunnel Surgery (DC) Print Language: Wolof Coding Level of Care Code ED Mobile Equipment Operator for Morris Solitario
[2024-12-04] MEDS: HYDROcodone-acetaminophen 5-325 mg Tablet 1 TAB PO (18:54)
[2024-12-04 19:20] VITALS: BP 196/58; PULSE 69; RESP 16; O2SAT 99
== END 2024-12-04 19:21 | disposition home or self-care (01) ==
PROVIDERS: Emergency Provider Emergency Medicine; PCP Family Medicine
DX: Z48.00 Encounter for change or removal of nonsurgical wound dressing (principal); E78.2 Mixed hyperlipidemia; N18.30 Chronic kidney disease, stage 3 unspecified
CPT/HCPCS: 99283; J9999

== ENCOUNTER → 2024-12-15 08:06 | Outpatient (BNVA) | payer MEDICARE, SELFPAY | PROVIDERS: PCP Family Medicine; Visit Provider Orthopaedic Surgery | DX: Z98.890 Other specified postprocedural states (principal) | CPT/HCPCS: 99024 ==

== ENCOUNTER 2024-12-26 19:47 | Emergency (ER) | payer MEDICARE, SELFPAY ==
[2024-12-26 19:49] VITALS: BP 151/67; PULSE 70; RESP 16; TEMP 36.2; O2SAT 98; BMI 29.3
--- NOTE | 2024-12-26 19:57 | XRR_ITS ---
PROCEDURE INFORMATION: Exam: XR Left Hand Exam date and time: 12/26/2024 7:59 PM Age: 89 years old Clinical indication: Pain; Hand; Left; Additional info: Lt 4th digit pain/swelling post fall. TECHNIQUE: Imaging protocol: Radiologic exam of the left hand. Views: 3 or more views. COMPARISON: No relevant prior studies available. FINDINGS: Bones/joints: 4th metacarpal mid-diaphyseal oblique mildly displaced fracture. 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 Soft tissues: Normal. XR/XR hand LT min 3V* [id number] IMPRESSION: 1. 4th metacarpal mid-diaphyseal oblique mildly displaced fracture. 2. 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
--- OUTSIDE RECORDS SUMMARY | 2024-12-26 20:05 | XMS_ITS | Clinical Summary ---
Author Organization [facility] Based Address [address] [place] [address] Care Team Providers Care Seam Taper Machine Name Role Phone Unavailable Primary Care Provider Unavailabl e Allergies Active Allergy Reactions Criticality Noted Date Comments Penicillins Hives High 05/30/2023 Sulfa (Sulfonamide Antibiotics) Other (See Comments) 05/30/2023 Temperature Medications atorvastatin (LIPITOR) 40 mg tablet Take 40 mg by mouth daily. Active coenzyme Q10 100 mg Capsule 1 cap(s) orally once a day Active fluticasone propionate (FLONASE) 50 mcg/spray [place], Suspension nasal inhaler instill 2 sprays into [...] Encounters Date Type Department Care Team Description 12/22/2024 External Device Data [facility] Provider, Abstract 12/08/2024 External Device Data [facility] Provider, Abstract 12/01/2024 External Device Data [facility] Provider, Abstract 11/04/2024 External Device Data [facility] Provider, Abstract 11/03/2024 External Device Data [facility] Provider, Abstract 10/06/2024 External Device Data [facility] Provider, Abstract from Last 3 Months Social History Tobacco Use Types Packs/Day Years Used Date Smoking Tobacco: Never Tobacco Cessation:Counseling Given: Not Answered Feeling Safe Answer Date Recorded Are you in a relationship wi th someone who hurts you emotionally and/or physically? 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 Gender Identity Not on file Sexual Orientation Not on file Last Filed Vital Signs Vital Sign Reading Time Taken Comments Blood Pressure 156/60 07/23/2023 2:39 PM CDT Pulse 84 07/23/2023 2:28 PM CDT Temperature 36.8 C (98.2 F) 06/20/2023 11:05 AM MARKETING DIRECTOR Respiratory Rate 20 06/20/2023 11:05 AM MARKETING DIRECTOR Oxygen Saturation 95% 06/20/2023 11:05 AM MARKETING DIRECTOR Inhaled Oxygen Concentration - - Weight 74.9 [...] ) (1 - 1-dose 75+ series) 2010 INFLUENZA VACCINE (#1) 2024 01/14/2023, 2020 COVID-19 Vaccine (2023-2 5 season) 2024 02/06/2024, 01/14/2023, 01/16/2022, Additional history exists DTAP/TDAP/TD VACCINES (2 - T d or Tdap) 11/22/2033 11/23/2023 Medical Devices Implanted Type Area Station Mechanic Helper Device Identifier Shelf Expiration Date Model / Serial / Lot Closure Perclose Prostyle Sut Mediate 48067-67 - [id number] Implanted:Qty: 1 on 06/19/2023 by Charlie Edward MD at [facility] Closure Device Right: Groin SHAW- VASC DEVICE 03/21/2025 [id number] / / [id number] Closure Perclose Prostyle Sut Mediate 98974-12 - [id number] Implanted:Qty: 1 on 06/19/2023 by Charlie Edward MD at [facility] Closure Device Right: Groin SHAW- VASC DEVICE 04/21/2025 [id number] / / [id number] Dev Closure Angioseal 6fr Vip [id number] - [id number] Implanted:Qty: 1 on 06/19/2023 by Charlie Edward MD at [facility] Closure Device Left: Groin SHAW [employer] 02/21/2024 [id number] / / [id number] Dlvry Sys Evolut Fx 23-29mm [id number] - [id number] Implanted:Qty: 1 on 06/19/2023 by Charlie Edward MD at [facility] Valve N/A: Heart [employer]- HEART VALVE 02/20/2025 D-EVOLUTF X-2329 / [id number] / [id number] Vlv Aort Evolut Fx Tavr 29mm Evolutfx-29 - [id number] Implanted:Qty: 1 on 06/19/2023 at [facility] Valve Aorta [employer]- HEART VALVE 04/07/2025 EVOLUTFX- 29 / [id number] / Insurance [facility] Advance Directives For more information, please contact: [phone] * Full Code (Latest Code Status on File) Date Activated Date Inactivated Comments 06/19/2023 6:00 AM 06/20/2023 5:30 PM
--- OUTSIDE RECORDS SUMMARY | 2024-12-26 20:05 | XMS_ITS | Encounter Summary ---
Author Organization [facility] Address [address] [place] [address] Care Team Providers Care Blow Down Helper Name Role Phone Unavailable Primary Care Provider Unavailabl e Encounter Details Date Type Department Care Team (Late st Contact Info) Description 12/22/2024 External Device Data [facility] Provider, Abstract NO ADDRESS ON FILE Social History Tobacco Use Types Packs/Day Years Used Date Smoking Tobacco: Never Feeling Safe Answer Date Recorded Are you in a relationship wi th someone who hurts you emotionally and/or physically? 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
--- OUTSIDE RECORDS SUMMARY | 2024-12-26 20:05 | XMS_ITS | Patient Health Record ---
Author Organization [facility] Address [address] [place] [address] Care Team Providers Care Telegraph Service Clerk Name Role Phone Steven Almazan Primary Care Provider [phone] Allergies Allergen (clinical drug ingredient) Drug/Non Drug Allergy documented on EMR Reaction Allergy Type Onset Date Status amlodipine Amlodipine Unknown Drug Allergy Activ e celecoxib Celecoxib Unknown Drug Allergy Active Penicillin Unknown Drug Allergy Active Substance with sulfonamide structure and antibacterial mechanism of action (substance) Sulfa Antibiotics Unknown Drug Allergy Active Results Component Value Reference Range Notes % Iron Saturation (Fe & TIBC )--70154,68527 Reviewed date:01/20/2024 01:26:48 PM Interpretation: Performing Lab: [...] carpal sam shavonne syndrome (G56.03) Referral Organization [facility] Referring Provider First Name [...] Orally Three times a day Not-Taking Nystatin 013318 UNIT/ML Suspension 4 mL Mouth/Throat Four times [...] W/U Status Risk Notes Problem Iron deficiency (25350906) Iron deficiency (E61.1) Active confirmed Problem Essential hypertension (18817489) Essential (primary) hypertension (I10) Active confirmed Problem Anesthesia of skin (183976948) Anesthesia of skin (R20.0) Active confirmed Problem Paresthesia (finding) (45597738) Paresthesia of skin (R20.2) Active confirmed Problem Coronary arteriosclerosis (disorder) (79029532) CAD in [place] artery (I25.10) Active confirmed Problem Bilateral carpal tunnel syndrome (30911864604034927) Bilateral carpal tunnel syndrome (G56.03) Active confirmed Problem Edema (303127140) Lower extremit y edema (R60.0) Active confirmed Problem Neck pain (71920359) Neck pain, acute (M54.2) Active confirmed Problem Iron deficiency anemia (62760121) Chronic iron deficiency anemia (D50.9) Active confirmed Problem Gastroduodenitis (917845919) Gastritis, presence of bleeding unspecified, unspecified chronicity, unspecified gastritis type (K29.70) Active confirmed Problem History of heart valve repair with prosthesis (130903233139736) 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) Active confirmed Vital Signs Heart Rate 84 /min 11/30/2024 Temperature 97.3 degrees Fahrenheit 11/30/2024 Height-cm 157.48 cm 11/30/2024 Oximetry 97 % 11/30/2024 Blood pressure diastolic 72 mm Hg 11/30/2024 Weight-kg 72.12 kg 11/30/2024 Height 62 in 11/30/2024 Blood pressure systolic 140 mm Hg 11/30/2024 Weight 159 lbs 11/30/2024 BMI 29.08 kg/m2 11/30/2024 Encounters Encounter Location Date Provider Diagnosis [facility] [address] [address] 03/24/2024 Steven Almazan Non-recurrent acute serous otitis media of right ear H65.01 and Depression screen Z13.31 [facility] [address] [phone] 02/20/2024 Steven Almazan Neck pain, acute M54.2 [facility] [address] [place] [phone] 03/11/2024 Steven Almazan CAD in [place] artery I25.10 and Iron deficiency E61.1 [facility] [address] [address] 11/30/2024 Steven Almazan Insect bite (nonvenomous) of right shoulder, initial encounter S40.261A and Arthropod bite, initial encounter W57.XXXA [facility] [address] [address] 03/05/2024 Steven Almazan Thrush, oral B37.0 [facility] [address] [address] 01/09/2024 Steven Almazan Iron deficiency E61.1 ; Chronic iron deficiency anemia D50.9 ; Gastritis, presence of bleeding unspecified, unspecified chronicity, unspecified gastritis type K29.70 and Depression screen Z13.31 [facility] [address] [address] 06/15/2024 Steven Almazan Encounter for Medicare annual wellness exam Z00.00 ; CAD in [place] artery I25.10 ; Lower extremity edema R60.0 ; Essential (primary) hypertension I10 and Advanced care planning/counseling discussion Z71.89 [facility] [address] [address] 05/06/2024 Steven Almazan CAD in [place] artery I25.10 ; S/P TAVR (transcatheter aortic valve replacement) Z95.2 ; Essential (primary) hypertension I10 ; Gastritis, presence of bleeding unspecified, unspecified chronicity, unspecified gastritis type K29.70 and Depression screen Z13.31 [facility] [address] [address] 03/03/2024 Steven Almazan Neck pain, acute M54.2 ; CAD in [place] artery I25.10 and Essential (primary) hypertension I10 [facility] [address] [place] [address], [place] [address] 02/28/2024 Steven Almazan [facility] [address] [place] [phone] 03/30/2024 Steven Almazan Assessments Encounter Date Diagnosis (ICD Code) Assessment Notes Treatment Notes Treatment Clinical Notes Section Notes 01/09/2024 Iron deficiency (ICD-10 - E61.1) 02/20/2024 Neck pain, acute (ICD-10 - M54.2) 03/03/2024 Neck pain, acute (ICD-10 - M54.2) 03/03/2024 CAD in [place] artery (ICD-10 - I25.10) 03/05/2024 Thrush, oral (ICD-10 - B37.0) 03/11/2024 CAD in [place] artery (ICD-10 - I25.10) 03/24/2024 Non-recurrent acute serous otitis media of right ear (ICD-10 - H65.01) 05/06/2024 CAD in [place] artery (ICD-10 - I25.10) 06/15/2024 Encounter for Medicare annual wellness exam (ICD-10 - Z00.00) Please schedule your next AWV in 1 year. 06/15/2024 CAD in [place] artery (ICD-10 - I25.10) 11/30/2024 Insect bite [...] hypertension (ICD-10 - I10) 06/15/2024 Advanced care planning/corporate travel counselor ing discussion (ICD-10 - Z71.89) Discussed Advance [...] with light dressing. Lab sent to [facility] via social worker aide. 03/11/2024 Other continue current treatment Plan Of Treatment No Information Insurance Providers Payer Name Payer Address Payer Phone Subscriber Number Group Number Insured Name Patient Relationship to Insured Coverage Start Date Coverage End Date [employer] Medicare Replacement [address] [place] [address] [id number] Keerthi Wiseman Self - patient is the [...] valve replacement 03/2023 Hospitalization History Reason Date(Month/Year) [facility] 02/2024 4 childbirths [facility] 02/2024
[2024-12-26] MEDS: HYDROcodone-acetaminophen 5-325 mg Tablet 1 TAB PO (20:33)
[2024-12-26 20:35] VITALS: BP 151/67; PULSE 70; RESP 16; O2SAT 97
--- NOTE | 2024-12-26 22:43 | ED_ITS ---
HPI - Fall General: Chief Complaint: Fall Stated Complaint: FALL Time Seen by Provider: 12/26/24 19:56 Source: patient Mode of arrival: EMS Limitations: no limitations History of Present Illness: Patient is an 89-year-old female who presents to the emergency department complaining of left hand injury after a fall from home. Pain reported to left ring finger, states she is have difficulty moving it and injured it 1 try to catch herself. Initially reported to EMS that she was having hip pain, but states this resolved prehospital without any pain medications being given. Has been ambulatory since this occurred. Did not hit her head or lose consciousness. No other injuries noted to her left ring finger. MD complaint: fall Onset (ago): minute(s) Fall from: standing Fall witnessed: yes, by family Place fall occurred: home Loss of consciousness: None Location of injury - extremities: Left: hand (Ring finger) Associated symptoms-after fall: Denies abdominal pain, chest pain, headache(s) or neck pain Related Data Home Medications ?Medication ?Instructions ?Recorded ?Confirmed atorvastatin 40 mg tablet (Lipitor) 40 mg PO QPM 06/2512/15/24 cholecalciferol (vitamin D3) 25 25 mcg PO QPM 06/25/24 12/15/24 mcg (1,000 unit) capsule coenzyme Q10 200 mg/gram oral 200 mg PO QPM 06/25/24 0 12/15/24 powder (H2Q CoQ10) ferrous gluconate 324 mg (37.5 mg 324 mg PO QPM 12/15/24 iron) tablet lactobacillus combination no.4 3 1 cell PO QPM 5 12/15/24 billion cell capsule (Probiotic) losartan 50 mg tablet 50 mg PO QPM 12/01/24 pantoprazole 40 mg tablet,delayed 40 mg PO QPM PRN Ind igestion 12/01/24 12/15/24 release Previous Rx's ?Medication ?Instructions ?Recorded clopidogrel 75 mg tablet 75 mg PO DAILY #90 tabs 07/13 hydrocodone 5 mg-acetaminophen 325 1 tab PO Q6H PRN pa in #30 tabs 12/02/24 mg tablet Allergies Allergy/AdvReac Type Severity Reaction Status Date / Time lisinopril Allergy Intermediate ADR-Cough Verified 12/26/24 19:54 amlodipine Allergy Mild swelling Verified 12/26/24 19:54 of legs Penicillins Allergy Unknown Verified 12/26/24 19:54 Sulfa (Sulfonamide Allergy Unknown Verified 12/26/24 19:54 Antibiotics) Review of Systems General: Reports: 10 or more systems reviewed and unremarkable except in HPI and below Const: Reports: other (Reports fall); Denies: fever(s) or chills Card: Denies: chest pain Resp: Denies: dyspnea or productive cough GI: Denies: abdominal pain, nausea, vomiting or diarrhea : Denies: flank pain Musc: Reports: extremity pain (Left ring finger); Denies: neck pain, back pain, extremity swelling, joint pain, joint swelling, joint redness, joint warmth, limited range of motion or muscle weakness Skin/Breast: Denies: rash Neuro: Denies: headache(s), numbness in extremities or weakness in extremities PFSH ED PFSH: Medical History History of benign ovarian tumor Dyslipidemia Mild aortic regurgitation Systolic murmur Fistula CKD (chronic kidney disease), stage III Osteoporosis Hyperlipemia, mixed Surgical History History of transcatheter aortic valve replacement (TAVR) S/P gastric surgery Family History Mother CAD (coronary artery disease) Father CAD (coronary artery disease) Social History Smoking and tobacco/nicotine status: never used tobacco/nicotine Second hand smoke exposure: No Alcohol intake: never Substance/Drug Use: never Lives independently: Yes Marital status: Current occupational status: retired Current gender identity: Female Physical Exam Const: COMMON NORMALS: no acute distress, patient oriented x3, no limitations, healthy appearing, alert and well nourished HENMT: COMMON NORMALS: normocephalic and atraumatic HEAD & SCALP: normocephalic and atraumatic Neck/C-Spine: COMMON NORMALS: full ROM, supple and no meningeal signs Resp: COMMON NORMALS: normal respiratory effort, No use of accessory muscles and clear to auscultation bilaterally AUSCULTATION: clear to auscultation bilaterally Cardio: COMMON NORMALS: regular rate and regular rhythm RATE: regular rate RHYTHM: regular rhythm Extremity: COMMON NORMALS: full ROM, capillary refill normal, no joint enlargement and no clubbing, cyanosis or edema NARRATIVE EXTREMITY EXAM: Tender to the left ring finger, limited range of motion secondary to the pain and mild swelling is noted. Mild bruising also noted. No extension into the hand. Cap refill normal and distal sensations intact. Full range of motion of the hips bilaterally, no deformity or shortening or internal/external rotation. Neuro: COMMON NORMALS: patient oriented x3, moves all extremities, no focal motor deficits and no sensory deficits noted SENSORIUM/ORIENTATION: Yes alert MENINGEAL SIGNS: Yes no meningeal signs Skin: COMMON NORMALS: no rashes or lesions noted GENERAL SKIN EXAM: no rashes or lesions noted Course Vital Signs: Vital signs: Vital Signs Temperature 97.2 F L 12/26/24 19:49 Pulse Rate 70 12/26/24 20:35 Respiratory Rate 16 12/26/24 20:35 Blood Pressure 151/67 12/26/24 20:35 Pulse Oximetry 97 12/26/24 20:35 Oxygen Delivery Me thod Room Air 12/26/24 19:49 MDM - Fall Medical Decision Making Patient presenting by EMS after a fall, injuring primarily her left ring finger. Initially reported some hip pain this resolved prehospital interim no concern for any acute injury here. However on x-ray of the left hand there is evidence of fourth finger fracture, will be placed in ulnar gutter splint referred to orthopedics. Neurovascular status was normal, she is given [place] for pain and discharged in stable condition. Lab Data Radiology Impressions Hand X-Ray 12/26/24 19:57 IMPRESSION: 1. 4th metacarpal mid-diaphyseal oblique mildly displaced fracture. 2. 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 All radiology interpretation(s) finalized by discharge Discharge Plan Discharge Patient Disposition: Home Clinical Impression: Finger fracture, left Qualifiers: Encounter type: initial encounter Finger: ring finger Fracture type: closed Phalanx: proximal Fracture alignment: nondisplaced Qualified Code(s): S62.645A - Nondisplaced fracture of proximal phalanx of left ring finger, initial encounter for closed fracture Condition: Stable Prescriptions: No Action cholecalciferol (vitamin D3) 25 mcg (1,000 unit) capsule 25 mcg PO QPM H2Q CoQ10 200 mg/gram powder 200 mg PO QPM atorvastatin [Lipitor] 40 mg tablet 40 mg PO QPM ferrous gluconate 324 mg (37.5 mg iron) tablet 324 mg PO QPM clopidogrel 75 mg tablet 75 mg PO DAILY Qty: 90 3RF Probiotic 3 billion cell Capsule 1 cell PO QPM losartan 50 mg tablet 50 mg PO QPM Rx Instructions: Take 50mg (1 tab) daily If systolic blood pressure 150 or above to take 1.5 pills (75 mg of losartan) pantoprazole 40 mg Tablet,Delayed Release (Dr/Ec) 40 mg PO QPM PRN (Reason: Indigestion) hydrocodone-acetaminophen 5-325 mg tablet 1 tab PO Q6H PRN (Reason: pain) Qty: 30 0RF Discharge Orders: Discharge ED (Routine); Ordered 12/26/24 Ordered By: Galen Whitley Referrals: Maria Eugenia Obregon MD [Primary Care Provider, [facility]] Patient Instructions: Patient Portal & Cyn Instructions Activity Restrictions/Additional Instructions: Proximal Phalanx Fracture Discharge Diagnosis: Closed fracture of the proximal phalanx, left ring finger. Immobilization: - The finger has been immobilized in an ulnar gutter splint, which stabilizes the ring and small fingers and restricts movement at the metacarpophalangeal (MCP) and proximal interphalangeal (PIP) joints, while allowing for protection of the fracture site.[1] https://pubmed.ncbi.nlm.nih.gov/16290794 [2] https://pubmed.ncbi.nlm.nih.gov/92713733 [3] https://pubmed.ncbi.nlm.nih.gov/8136728 - Splint should remain dry and intact. Advise against removal or manipulation until evaluated by orthopedics. Neurovascular Monitoring: - Instruct patient/caregivers to monitor for increased pain, numbness, tingling, pallor, or coolness of the finger, which may indicate neurovascular compromise. If any of these symptoms develop, prompt evaluation is required. Elevation and Edema Control: - Recommend elevation of the hand above heart level as much as possible to reduce swelling.[1] https://pubmed.ncbi.nlm.nih.gov/82372643 - Ice may be applied over the splint for 20 minutes every 2-3 hours as tolerated, avoiding direct contact with skin. Activity Restrictions: - No weight-bearing, heavy lifting, or use of the affected hand until cleared by orthopedics. - Avoid getting the splint wet; cover with a plastic bag for bathing. Pain Management: - Acetaminophen or NSAIDs may be used for pain control, unless contraindicated. Dosage should be individualized based on comorbidities and renal function. Follow-Up: - Orthopedic referral is arranged for definitive management and assessment of fracture stability, alignment, and need for further intervention.[1] https://pubmed.ncbi.nlm.nih.gov/12713150 [4] https://pubmed.ncbi.nlm.nih.gov/62587973 [2] https://pubmed.ncbi.nlm.nih.gov/46755914 [5] https://pubmed.ncbi.nlm.nih.gov/71904711 - Early follow-up (within 7 days) is recommended to assess for displacement, malrotation, or complications, and to initiate hand therapy if appropriate.[6] https://pubmed.ncbi.nlm.nih.gov/26129066 - If the fracture is stable and well-aligned, transition to early mobilization may be considered under orthopedic guidance to minimize stiffness and optimize functional outcome.[4] https://pubmed.ncbi.nlm.nih.gov/42692666 [2] https://pubmed.ncbi.nlm.nih.gov/58441469 [3] https://pubmed.ncbi.nlm.nih.gov/3400584 [6] https://pubmed.ncbi.nlm.nih.gov/28679784 Complications to Monitor: - Malunion, nonunion, stiffness (especially PIP joint), and tendon adhesions are potential complications. Early motion, when safe, is critical to minimize these risks.[3] https://pubmed.ncbi.nlm.nih.gov/0555382 [6] https://pubmed.ncbi.nlm.nih.gov/61437110 [7] https://pubmed.ncbi.nlm.nih.gov/53151057 Patient Education: - Reinforce importance of splint compliance and follow-up. - Advise on signs of infection (fever, increasing redness, drainage) and when to seek urgent care. Special Considerations (Geriatric): - Given advanced age, monitor closely for skin breakdown under the splint and ensure adequate pain control and support for activities of daily living. Contact Information: - Provide contact details for the orthopedic clinic and instructions for urgent return if neurovascular compromise, severe pain, or splint issues arise. Summary: - Ulnar gutter splint applied for immobilization of proximal phalanx fracture. - Orthopedic follow-up arranged for assessment and management. - Emphasis on neurovascular monitoring, edema control, splint care, and early mobilization as appropriate.[1] https://pubmed.ncbi.nlm.nih.gov/96298023 [4] https://pubmed.ncbi.nlm.nih.gov/23597694 [2] https://pubmed.ncbi.nlm.nih.gov/ 51426103 [3] https://pubmed.ncbi.nlm.nih.gov/9399026 [6] https://pubmed.ncbi.nlm.nih.gov/64854377 [7] https://pubmed.ncbi.nlm.nih.gov/11738785 References * Common Finger Fractures and Dislocations https://pubmed.ncbi.nlm.nih.gov/44204107 . [place], Joni J, Eddie A. [employer]. 2021;105(6):631-639. * Extra-Articular Fractures of the Proximal Phalanges of the Fingers: A Comparison of 2 Methods of Functional, Conservative Treatment https://pubmed.ncbi.nlm.nih.gov/57467998 . Jacky T, von mEil U, Sara Cordero S, et al. The Journal of Hand Surgery. 2012;37(5):889-98. doi:10.1016/j.jhsa.2012.02.017. * Treatment Principles for Proximal and Middle Phalangeal Fractures https://pubmed.ncbi.nlm.nih.gov/5525813 . Cristian Walker. [facility]. 1992;23(1):35-40. * Non-Surgical Management of Isolated Proximal Phalangeal Fractures With Immediate Mobilization https://pubmed.ncbi.nlm.nih.gov/62062724 . Hector B, Baldemar A, Luisa R. The Journal of Hand Surgery, Volume. 2020;45(2):126-130. doi:10.1177/3224430561952873. * Fractures of the Proximal Phalanx and Metacarpals in the Hand: Preferred Methods of Stabilization https://pubmed.ncbi.nlm.nih.gov/11397546 . Piter MCGHEE. The Journal of the [place] [employer]. 2008;16(10):586- 95. doi:10.5435/[id number]. * Rehabilitation for Proximal Phalangeal Fractures https://pubmed.ncbi.nlm.nih.gov/19466395 . Lucrecia MATIAS, Rodolfo HOANG, Vikram S. Journal of Hand Therapy : Official Journal of the [place] [employer]. 2002;16(2):129-42. doi:10.1016/u9468-98740371317-b. * Extraarticular Hand Fractures in Adults: A Review of New Developments https://pubmed.ncbi.nlm.nih.gov/12695735 . Lucrecia MATIAS, Calvin SOLER. Clinical Orthopaedics and Related Research. 2006;445:133-45. doi:10.1097/01.blo.[id number].c5. 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
== END 2024-12-26 20:46 | disposition home or self-care (01) ==
PROVIDERS: Emergency Provider Physician Assistant; PCP Family Medicine
DX: S62.645A Nondisplaced fracture of proximal phalanx of left ring finger, initial encounter for closed fracture (principal); Z79.02 Long term (current) use of antithrombotics/antiplatelets; E78.2 Mixed hyperlipidemia; N18.30 Chronic kidney disease, stage 3 unspecified; W19.XXXA Unspecified fall, initial encounter
CPT/HCPCS: 73130; 99283; J9999

== ENCOUNTER 2025-01-01 12:24 | Outpatient (CLI) | payer MEDICARE, SELFPAY | END 2025-01-01 12:25 | disposition home or self-care (01) | LOC: SOT 12:27 | PROVIDERS: PCP Family Medicine; Visit Provider Orthopaedic Surgery | DX: Z46.89 Encounter for fitting and adjustment of other specified devices (principal); T14.8XXA Other injury of unspecified body region, initial encounter; W18.30XA Fall on same level, unspecified, initial encounter | CPT/HCPCS: 99214; L3982 ==

== ENCOUNTER → 2025-01-28 07:39 | Outpatient (BNVA) | payer MEDICARE, SELFPAY | PROVIDERS: PCP Family Medicine; Visit Provider Nurse Practitioner Family | DX: D18.01 Hemangioma of skin and subcutaneous tissue (principal); L57.8 Other skin changes due to chronic exposure to nonionizing radiation; X32.XXXA Exposure to sunlight, initial encounter; L81.4 Other melanin hyperpigmentation; L82.1 Other seborrheic keratosis | CPT/HCPCS: 99213 ==

== ENCOUNTER → 2025-02-05 09:47 | Outpatient (BNVA) | payer MEDICARE, SELFPAY | PROVIDERS: PCP Family Medicine; Visit Provider Orthopaedic Surgery | DX: S62.609D Fracture of unspecified phalanx of unspecified finger, subsequent encounter for fracture with routine healing (principal); W18.30XD Fall on same level, unspecified, subsequent encounter | CPT/HCPCS: 73130; 99024; 99213 ==

== ENCOUNTER → 2025-02-25 14:14 | Outpatient (BNVA) | payer MEDICARE, SELFPAY | PROVIDERS: PCP Family Medicine; Visit Provider Family Medicine | DX: N18.30 Chronic kidney disease, stage 3 unspecified (principal); D64.9 Anemia, unspecified; R42 Dizziness and giddiness; E11.9 Type 2 diabetes mellitus without complications; E78.5 Hyperlipidemia, unspecified | CPT/HCPCS: 80053; 83036; 83735; 84443; 85025 ==

== ENCOUNTER → 2025-03-05 08:29 | Outpatient (BNVA) | payer MEDICARE, SELFPAY | PROVIDERS: PCP Family Medicine; Visit Provider Orthopaedic Surgery | DX: Z98.890 Other specified postprocedural states (principal); S62.607D Fracture of unspecified phalanx of left little finger, subsequent encounter for fracture with routine healing; X58.XXXD Exposure to other specified factors, subsequent encounter | CPT/HCPCS: 99213 ==

== ENCOUNTER 2025-03-10 08:38 | Outpatient (RCR) | payer MEDICARE, SELFPAY | END 2025-03-21 23:59 | disposition home or self-care (01) | LOC: SOT 08:38 | PROVIDERS: PCP Family Medicine; Visit Provider Orthopaedic Surgery | DX: S62.605D Fracture of unspecified phalanx of left ring finger, subsequent encounter for fracture with routine healing (principal); X58.XXXD Exposure to other specified factors, subsequent encounter | CPT/HCPCS: 97022; 97110; 97140; 97165 ==

== ENCOUNTER 2025-03-16 08:51 | Outpatient (RCR) | payer MEDICARE, SELFPAY | END 2025-03-16 08:52 | disposition home or self-care (01) | LOC: SOT 08:51 | PROVIDERS: PCP Family Medicine; Visit Provider Orthopaedic Surgery | DX: S62.609D Fracture of unspecified phalanx of unspecified finger, subsequent encounter for fracture with routine healing (principal); Z98.890 Other specified postprocedural states; X58.XXXD Exposure to other specified factors, subsequent encounter | CPT/HCPCS: 99213 ==

== ENCOUNTER 2025-03-22 05:00 | Outpatient (RCR) | payer MEDICARE, SELFPAY | END 2025-04-21 23:59 | disposition home or self-care (01) | LOC: SOT 05:00 | PROVIDERS: PCP Family Medicine; Visit Provider Orthopaedic Surgery | DX: S62.605A Fracture of unspecified phalanx of left ring finger, initial encounter for closed fracture (principal); X58.XXXA Exposure to other specified factors, initial encounter | CPT/HCPCS: 97022; 97110; 97140 ==

== ENCOUNTER → 2025-04-05 08:31 | Outpatient (BNVA) | payer MEDICARE, SELFPAY | PROVIDERS: PCP Family Medicine; Visit Provider Orthopaedic Surgery | DX: S62.608D Fracture of unspecified phalanx of other finger, subsequent encounter for fracture with routine healing (principal); X58.XXXD Exposure to other specified factors, subsequent encounter | CPT/HCPCS: 99213 ==